=== PATIENT | female | born 1950 | race Caucasian/White ===

== ENCOUNTER 2020-07-02 10:17 | Outpatient (CLI) | payer MEDICARE, SELFPAY ==
--- NOTE | ~2020-07-02 | XR_ITS ---
XR lumbar spine 6V w bending DATE: 07/02/2020 10:46 INDICATION: Low back pain. No injury. TECHNIQUE: Flexion and extension and neutral lateral views. AP, bilateral oblique and coned lateral l umbosacral views COMPARISON: None FINDINGS: Minimal levoscoliosis of the thoracolumbar spine. Diffuse idiopathic skeletal hyperostosis of the thoracolumbar spine. No spondylolysis is evident. There is grade 1 anterolisthesis at L3-4 and L4-5 secondary to degenerat kyler change at the apophyseal joints. Moderately severe degenerative disease at L1-2, L2-3, L3-4 and severe degenerative disc disease at L5 -S1; associated mild retrolisthesis at L2-3. Moderate degenerative disc disease at L4-5. No instability is evident on flexion or extension. The sacroiliac joints are unremarkable. IMPRESSION: Diffuse idiopathic skeletal hyperostosis of the thoracolumbar spine Extensive multilevel degenerative disc disease of the lumbar spine, with associated mild retrolisthes is at L2-3 Degenerative change at the apophyseal joints with associated grade 1 anterolisthesis at L3-4 and L4-5 Reviewed, dictated and finalized at location B. IMPRESSION: Diffuse idiopathic skeletal hyperostosis of the thoracolumbar spine Extensive multilevel degenerative disc disease of the lumbar spine, with associ ated mild retrolisthesis at L2-3 Degenerative change at the apophyseal joints with associated grade 1 anterolist hesis at L3-4 and L4-5
--- NOTE | ~2020-07-02 | XR_ITS ---
XR chest 2V DATE: 07/02/2020 10:46 INDICATION: Shortness of breath TECHNIQUE: PA and lateral views COMPARISON: None FINDINGS: Cardiac megaly. No hilar or mediastinal enlargement. No pulmonary infiltrate or consolidation, pleural effusion or pulmonary vascular congestion or pneumo thorax. No hilar or mediastinal enlargement. Included skeletal structures are unremarkable other than degenerative changes of the thoracic and lum bar spine. IMPRESSION: Cardiomegaly; no active pulmonary disease Reviewed, dictated and finalized at location B.
== END 2020-07-02 10:18 | disposition home or self-care (01) ==
PROVIDERS: PCP Internal Medicine; Visit Provider Physician Assistant
DX: M54.30 Sciatica, unspecified side (principal); R06.02 Shortness of breath; M51.36 Other intervertebral disc degeneration, lumbar region
CPT/HCPCS: 71046; 72114

== ENCOUNTER 2021-09-03 12:24 | Emergency (ER) | payer MEDICARE, SELFPAY ==
[2021-09-03 12:33] VITALS: BP 184/104; PULSE 72; RESP 18; O2SAT 98
--- NOTE | 2021-09-03 14:13 | PC.NURSE ---
pt refuses to give urine sample at this time. does not want to stay for lab results. son at the bedside at this time. ERP aware.
[2021-09-03 14:23] VITALS: RESP 20
[2021-09-03 14:24] LABS: Basophils Absolute Auto 0.1 K/mm3 (0.0-0.1); Basophils Percent Auto 0.4 % (0.2-1.2); Eosinophils Absolute Auto 0.3 K/mm3 (0-0.3); Hematocrit 44.3 % (37.0-47.0); Hemoglobin 15.5 g/dL (12.0-15.0); Immature Granulocyte Absolute 0.15 K/mm3 (0.00-0.031); Lymphocytes Absolute Auto 1.11 K/mm3 (0.9-3.2); Lymphocytes Percent Auto 7.7 % (18.3-44.2); Mean Corpuscular Hemoglobin 29.9 pg (26-34); Mean Corpuscular Volume 85.5 fl (80-100); Mean Platelet Volume 9.6 fl (7.4-10.4); Monocytes Absolute Auto 0.8 K/mm3 (0.1-0.6); Monocytes Percent Auto 5.6 % (2.6-8.5); Neutrophils Percent Auto 83.3 % (45.5-73.1); Platelet Count Result 316 k/mm3 (150-375); Red Blood Count 5.18 M/mm3 (4.2-5.4); Red Cell Distribution Width 13.4 % (11.5-14.5); White Blood Count 14.5 K/mm3 (4.5-10.0)
[2021-09-03 14:33] LABS: Alanine Aminotransferase 17 U/L (4-35); Albumin Level 4.5 g/dL (3.5-5.1); Alkaline Phosphatase 106 U/L (38-126); Anion Gap 11 mmol/L (8-16); Aspartate Amino Transferase 22 U/L (14-36); Bilirubin,Total 1.2 mg/dL (0.2-1.3); Blood Urea Nitrogen 17 mg/dL (7-17); Calcium 9.1 mg/dL (8.4-10.2); Carbon Dioxide 30 mmol/L (22-30); Chloride 85 mmol/L (98-107); Estimated CRCL calculation 77 ml/min; Estimated Glomerular Filt Rate > 60; Glucose 287 mg/dL (65-110); Potassium 3.3 mmol/L (3.4-5.0); Sodium 126 mmol/L (137-145)
--- NOTE | 2021-09-03 14:39 | ED.GENADULT ---
HPI - General Adult General Chief complaint: Recheck/Abnormal Lab/Rx Stated complaint: HTN Time Seen by Provider: 09/03/21 12:45 Source: patient Mode of arrival: EMS Limitations: no limitations History of Present Illness HPI narrative: 71-year-old was brought in from home by EMS with complaints of possible anxiety attack. Patient is a known history of hypertension, diabetes. She states that she is feeling fine and wants to go home and does not want to be examined. She would like to sign out AMA. She declined any examination. Family is at bedside Related Data Allergies Allergy/AdvReac Type Severity Reaction Status Date / Time Penicillins Allergy Mild rash Verified 04/06/21 13:21 Review of Systems Review of Systems: Patient declined to answer questions and would not like me to examine him. [facility] Family History Family History Mother Hypertension Family history of malignant neoplasm, Onset Age: 87 Patient's mother is Father Family history of malignant neoplasm, Onset Age: 92 Patient's father is Other Diabetes mellitus Family history of allergic disorder Social History Social History Smoking status: Never smoker Second hand tobacco smoke exposure: No Alcohol intake: never Substance use: never Exam Narrative: Unable to perform any physical exam as patient would not let me examine her. Course Course Emergency Course: Inform patient and family about her behavior and attitude at this time patient declined examination. Family said that she has always been like that I cannot help it. Vital Signs Vital signs: Vital Signs Pulse Rate 72 09/03/21 12:33 Respiratory Rate 18 09/03/21 12:33 Blood Pressure 184/104 H 09/03/21 12:33 Pulse Oximetry 98 09/03/21 12:33 Pulse Rate 72 09/03/21 12:33 Respiratory Rate 18 09/03/21 12:33 Blood Pressure 184/104 H 09/03/21 12:33 Pulse Oximetry 98 09/03/21 12:33 Medical Decision Making Vital Signs Vital Signs: Vital Signs Pulse Rate 72 09/03/21 12:33 Respiratory Rate 18 09/03/21 12:33 Blood Pressure 184/104 H 09/03/21 12:33 Pulse Oximetry 98 09/03/21 12:33 Pulse Rate 72 09/03/21 12:33 Respiratory Rate 18 09/03/21 12:33 Blood Pressure 184/104 H 09/03/21 12:33 Pulse Oximetry 98 09/03/21 12:33 Lab Data Result diagrams: 09/03/21 14:10 09/03/21 14:10 Labs: Lab Results 09/03/21 09/03/21 Range/Units 14:10 14:10 WBC 14.5 H (4.5-10.0) K/mm3 RBC 5.18 (4.2-5.4) M/mm3 Hgb 15.5 H (12.0-15.0) g/dL Hct 44.3 (37.0-47.0) % MCV 85.5 (80-100) fl MCH 29.9 (26-34) pg MCHC 35.0 (32-36) g/dl RDW 13.4 (11.5-14.5) % Plt Count 316 (150-375) k/mm3 MPV 9.6 (7.4-10.4) fl Immature Gran % (Auto) 1.0 H (0-0.5) % Neut % (Auto) 83.3 H (45.5-73.1) % Lymph % (Auto) 7.7 L (18.3-44.2) % Sumner % (Auto) 5.6 (2.6-8.5) % Eos % (Auto) 2.0 (0-4.4) % Baso % (Auto) 0.4 (0.2-1.2) % Lymph # (Auto) 1.11 (0.9-3.2) K/mm3 Sumner # (Auto) 0.8 H (0.1-0.6) K/mm3 Eos # (Auto) 0.3 (0-0.3) K/mm3 Baso # (Auto) 0.1 (0.0-0.1) K/mm3 Abs Immat Gran (auto) 0.15 H (0.00-0.031) K/mm3 Absolute Neuts (auto) 12.0 H (1.3-6.7) K/mm3 Absolute Nucleated RBC 0.0 (0.0-0.012) K/mm3 Nucleated RBC % 0.0 (0.0-0.2) % Sodium 126 L (137-145) mmol/L Potassium 3.3 L (3.4-5.0) mmol/L Chloride 85 L (98-107) mmol/L Carbon Dioxide 30 (22-30) mmol/L Anion Gap 11 (8-16) mmol/L BUN 17 (7-17) mg/dL Creatinine 0.60 L (0.7-1.0) mg/dL Estim Creat Clear Calc 77 ml/min Estimated GFR > 60 (59 - ) Glucose 287 H (65-110) mg/dL Calcium 9.1 (8.4-10.2) mg/dL Total Bilirubin 1.2 (0.2-1.3) mg/dL AST 22 (14-36) U/L ALT 17 (4-35) U/L Alkaline Phosphatase 106 (38
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
--- NOTE | 2021-09-03 15:27 | PC.NURSE ---
denies any issues at this time. Pt admits to being non-compliant with insulin and BG checks. after RN mike blood, pt states that she had been eating multiple glucose tablets she had in her purse, because I was hungry
--- NOTE | 2021-09-03 15:29 | PC.NURSE ---
IV hadd been placed by EMS PATIENT ACCOUNT REPRESENTATIVE, unknown location, but IV catheter was on the bedside table when RN went to bedside.
--- NOTE | 2021-09-03 15:42 | PC.NURSE ---
RN called Adam, son, with critical lab results. Family verified that he is aware of critical results, and knows that pt need medical care. Pt to have office visit with PCP next week, but known to be non-compliant with follow up care and PCP visits.
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
== END 2021-09-03 14:25 | disposition left against medical advice (07) ==
PROVIDERS: Emergency Provider Family Medicine; PCP Internal Medicine
DX: F41.9 Anxiety disorder, unspecified (principal); I10 Essential (primary) hypertension; E11.9 Type 2 diabetes mellitus without complications
CPT/HCPCS: 36415; 80053; 85025; 99283

== ENCOUNTER 2021-09-04 16:37 | Inpatient (IN) | payer MEDICARE, SELFPAY ==
--- NOTE | ~2021-09-04 | CT_ITS ---
EXAMINATION: CT brain wo con DATE: 09/04/2021 18:40 INDICATION: Hyponatremia. TECHNIQUE: Computed tomography (CT) of the head was performed without intravenous contrast. The mA wa s adjusted according to patient size. Iterative reconstruction technique was employed. The dose-lengt h product was 605.33 mGy-cm. COMPARISON: None FINDINGS: There is no intracranial hemorrhage, acute infarction, or abnormal intracranial mass lesion . There is an old infarct involving the right basal ganglia and right frontal lobe white matter. Ther e are scattered areas of low attenuation in the cerebral white matter, which is within normal limits for the patient's age. The ventricles are normal in size. The paranasal sinuses are clear. The mastoi d air cells are normal. The orbits are normal. IMPRESSION: 1. Old infarct involving the right basal ganglia and right frontal lobe white matter. Reviewed, dictated and finalized at location A. IMPRESSION: 1. Old infarct involving the right basal ganglia and right frontal lobe white m atter.
--- NOTE | ~2021-09-04 | XR_ITS ---
EXAMINATION: XR chest 1V portable DATE: 09/04/2021 17:15 INDICATION: Cough. TECHNIQUE: A single frontal view of the chest was obtained. COMPARISON: Chest 2 views 07/02/2020 FINDINGS: The patient is rotated to her left. There is no pneumonia, pleural effusion, or pneumothora x. Cardiomediastinal is noted. IMPRESSION: 1. Cardiomegaly. Reviewed, dictated and finalized at location A. IMPRESSION: 1. Cardiomegaly.
[2021-09-04 17:34] LABS: Basophils Absolute Auto 0.1 K/mm3 (0.0-0.1); Basophils Percent Auto 0.4 % (0.2-1.2); Eosinophils Absolute Auto 0.2 K/mm3 (0-0.3); Eosinophils Percent Auto 1.5 % (0-4.4); Hematocrit 41.9 % (37.0-47.0); Immature Granulocyte Absolute 0.23 K/mm3 (0.00-0.031); Immature Granulocyte Percent A 1.4 % (0-0.5); Lymphocytes Absolute Auto 1.44 K/mm3 (0.9-3.2); Lymphocytes Percent Auto 8.7 % (18.3-44.2); Mean Corpuscular HGB Conc 35.8 g/dl (32-36); Mean Corpuscular Hemoglobin 29.9 pg (26-34); Mean Corpuscular Volume 83.5 fl (80-100); Mean Platelet Volume 9.4 fl (7.4-10.4); Monocytes Percent Auto 5.9 % (2.6-8.5); Neutrophils Absolute Auto 13.5 K/mm3 (1.3-6.7); Neutrophils Percent Auto 82.1 % (45.5-73.1); Platelet Count Result 340 k/mm3 (150-375); Red Blood Count 5.02 M/mm3 (4.2-5.4); Red Cell Distribution Width 13.3 % (11.5-14.5); White Blood Count 16.5 K/mm3 (4.5-10.0)
[2021-09-04 17:43] VITALS: BP 178/108; PULSE 68; RESP 18; O2SAT 97
[2021-09-04 17:47] LABS: INR 1.1; Prothrombin Time 14.4 Seconds (11.1-14.7)
[2021-09-04 17:50] LABS: Alanine Aminotransferase 17 U/L (4-35); Albumin Level 4.4 g/dL (3.5-5.1); Alkaline Phosphatase 98 U/L (38-126); Anion Gap 11 mmol/L (8-16); Aspartate Amino Transferase 24 U/L (14-36); Bilirubin,Total 1.4 mg/dL (0.2-1.3); Blood Urea Nitrogen 20 mg/dL (7-17); Calcium 9.1 mg/dL (8.4-10.2); Carbon Dioxide 29 mmol/L (22-30); Chloride 82 mmol/L (98-107); Estimated CRCL calculation 79 ml/min; Estimated Glomerular Filt Rate > 60; Glucose 274 mg/dL (65-110); Magnesium 1.4 mg/dL (1.6-2.3); Potassium 3.2 mmol/L (3.4-5.0); Sodium 122 mmol/L (137-145)
[2021-09-04 18:01] LABS: Troponin I < 0.012 ng/mL (0.000-0.034)
--- NOTE | 2021-09-04 18:45 | ED.RECABL ---
HPI - Recheck/Abnormal Lab/Rx General Chief Complaint: Recheck/Abnormal Lab/Rx Stated Complaint: ABN LABS Time Seen by Provider: 09/04/21 16:39 Source: EMS and other (group social worker) Mode of arrival: EMS Limitations: altered mental status and other (uncooperative) History of Present Illness HPI narrative: 71-year-old female history of hypertension and insulin-dependent diabetes brought in by Adult Protective Services per EMS for abnormal labs in the ED yesterday. Patient left AGAINST MEDICAL ADVICE yesterday with abnormal labs. Patient with no complaints. Patient agrees to stay if needed. No fever, unkempt poor historian and denies current complaints. Initial visit (ago): day(s) (1) Initial visit for: other (anxiety) Returns today for: called because of abnormal lab/test Symptoms since prior visit: no new symptoms Context: called for abnormal lab result Associated symptoms: none Related Data Allergies Allergy/AdvReac Type Severity Reaction Status Date / Time Penicillins Allergy Mild rash Verified 04/06/21 13:21 Review of Systems Review of Systems: CONSTITUTIONAL: no fever, no weight loss, no confusion, hungry EYES: no vision changes, no eye pain ENT: no rhinorrhea, no sore throat, no difficulty swallowing CARDIOVASCULAR: no chest pain, no leg edema, no palpitations RESPIRATORY: no cough, no shortness of breath, no hemoptysis GASTROINTESTINAL: no abdominal pain, no nausea, no vomiting, no diarrhea GENITOURINARY: no flank pain, no dysuria, no hematuria SKIN: no rash, no jaundice MUSCULOSKELETAL: no back pain, no trauma. NEUROLOGIC: No headache, no dizziness, no focal weakness PSYCHIATRIC: No hallucinations, no suicidal ideation [facility] Family History Family History Mother Hypertension Family history of malignant neoplasm, Onset Age: 87 Patient's mother is Father Family history of malignant neoplasm, Onset Age: 92 Patient's father is Other Diabetes mellitus Family history of allergic disorder Social History Social History Smoking status: Never smoker Second hand tobacco smoke exposure: No Alcohol intake: never Substance use: never Exam Narrative: General: alert, afebrile, unkempt Head: normocephalic, atraumatic Eyes: EOMI bilaterally, anicteric, no injection ENT: dry mucous membranes, oropharynx patent, no rhinorrhea Neck: supple, trachea midline Chest: equal chest rise bilaterally, no chest wall trauma noted CV: regular rate, no EZRA B, calf size equal bilaterally Abd: soft, non-distended, non-tender, no rebound, no gaurding, negative Villasenor's : no CVA tenderness B, bladder non-distended Back: no lumbar bony tenderness. paraspinal muscles without spasm EXT: no deformity noted, moving all extremities equally Skin: warm, dry, no pallor Neuro: alert, oriented x 3; CN 2-12 grossly intact, no dysarthria Psych: affect appropriate, though content normal Course Course Emergency Course: Patient brought in by protective services for abnormal labs yesterday after leaving AMA. Patient agrees to admission at this time. Labs show hyponatremia hypomagnesemia she also has elevated WBCs with with clear chest x-ray. UA pending we will treat UTI that she has. CT brain without acute process. Vital Signs Vital signs: Vital Signs Pulse Rate 68 09/04/21 17:43 Respiratory Rate 18 09/04/21 17:43 Blood Pressure 178/108 H 09/04/21 17:43 Pulse Oximetry 97 09/04/21 17:43 Pulse Rate 68 09/04/21 17:43 Respiratory Rate 18 09/04/21 17:43 Blood Pressure 178/108 H 09/04/21 17:43 Pulse Oximetry 97 09/04/21 17:43 MDM - Recheck/Abnormal Lab/Rx Differential Diagnosis Differential diagnosis: Likely other (Electrolyte disorder, altered mental status, UTI, pneumonia, acute renal failure, hyperglycemia) Medical Records Attestation: I reviewed the pa
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
--- NOTE | 2021-09-04 18:54 | ECG_ITS ---
Measurements Intervals [place] Rate: 77 P: 46 MN: 171 QRS: -23 QRSD: 102 T: -4 QT: 433 QTc: 491 Interpretive Statements SINUS RHYTHM ATRIAL PREMATURE COMPLEX BORDERLINE R WAVE PROGRESSION, ANTERIOR LEADS BORDERLINE T WAVE ABNORMALITY- INFERIOR LEADS BASELINE ARTIFACT- I, II, AVR, AVL, AVF BORDERLINE ECG Electronically Signed On 09-04-2021 20:06:36 CDT by Franck Quesada D.O.
[2021-09-04] MEDS: SODIUM CHLORIDE 0.9% IV 1,000 ML 999 ML IV CONT (19:05)
--- NOTE | 2021-09-04 19:12 | PC.NURSE ---
straight cathed for urine, approx 200ml output. urine sent to lab. pt cleaned up and dry depends
[2021-09-04 19:26] LABS: Add Urine Microscopic? YES; Appearance Urine Clear (Clear); Bilirubin Urine Negative (Negative); Blood Urine Negative (Negative); Color Urine Yellow (Yellow); Glucose Urine UA 3+ mg/dL (Negative); Ketones Urine 1+ mg/dL (Negative); Leukocyte Esterase Ur Negative LEU/UL (Negative); Mucus Urine Rare /lpf; Nitrate Urine Negative (Negative); Protein Urine 2+ mg/dL (Negative); RBC Urine 0-2 /hpf (0-2); Urobilinogen Urine Negative mg/dL (<2.0); WBC Urine 0-3 /hpf
--- NOTE | 2021-09-04 19:30 | PC.NURSE ---
verbal report given to Rosario WELFARE PROJECT MANAGER nurse. notified that pt will need capacity assessment completed by and that [place] dept of aging has been involved.
[2021-09-04 19:43] VITALS: BP 157/100; PULSE 75; RESP 20; TEMP 36.6; O2SAT 98
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
[2021-09-04 20:18] VITALS: BP 126/82; PULSE 78; RESP 15
--- NOTE | 2021-09-04 20:24 | PC.NURSE ---
Pt's daughter Fe here but spoke with charge nurse. Will not be taking pt home. Left number for her brother: Adam Ricci [phone].
[2021-09-04 20:45] VITALS: BP 172/110; PULSE 76; RESP 10; O2SAT 97
[2021-09-04 20:46] VITALS: BP 172/110; PULSE 94; RESP 31; O2SAT 93
--- NOTE | 2021-09-04 20:54 | PC.NURSE ---
Pt to [id number] in [facility]. reluctant to be admitted. this RN and viscose cellar charge hand zoltan in ED room to speak with pt. Education provided. Pt informed that her daughter has already left the hospital and will NOT be taking her home. Pt denies using walker or cane at home. Agreed to go to inpatient room and more comfortable bed, with reluctance.
[2021-09-04 21:35] VITALS: BMI 41.8
[2021-09-04 22:00] VITALS: BP 168/82; PULSE 75; RESP 20; TEMP 36.2; O2SAT 98
[2021-09-04] MEDS: SODIUM CHLORIDE 0.9% IV 1,000 ML 125 ML IV CONT (22:05)
[2021-09-04 22:16] LABS: Glucose Point of Care 300 mg/dl (65-105)
[2021-09-04] MEDS: LOPERAMIDE HCL 2 MG CAPSULE 4 MG PO (22:42)
[2021-09-04] MEDS: traZODone HCL 50 MG TABLET 100 MG PO (22:43)
[2021-09-05] VITALS (10 sets, daily range): BP systolic 134–161; BP diastolic 54–83; PULSE 62–83; RESP 16–18; TEMP 36.6–36.8; O2SAT 93–97
--- NOTE | 2021-09-05 00:12 | PM.IMHP ---
H&P: HPI History of Present Illness Date/Time: 09/04/21 4413 this is a 71-year-old female patient with a history of hypertension and insulin-dependent diabetes. The patient was brought into adult protective services per EMS for abnormal labs in the ED yesterday. The patient was seen here at [facility] yesterday for possible anxiety attack. The patient stated she was feeling fine and she wanted to go home she did want to be examined and she signed out against medical advice yesterday. Her family was at the bedside yesterday. Yesterday her white count was noted to be 14.5 and today it is 16.5. Yesterday her sodium was 126 and today is 122. Patient's potassium 3.3 yesterday at 3.2 today. Her blood sugar was 287 yesterday 274 today and then 300. Magnesium is 1.4 today. Patient was empirically started on Rocephin for possibility of urinary tract infection. The patient is very unkempt. She was started on IV fluids. The patient stated that she has chronic diarrhea due to her metformin. We have no previous labs to compare her sodium. The patient is being admitted to inpatient services on the date of service of 09/04/2021 Chief Complaint: Abnormal lab Review of Systems Review of Systems: All systems reviewed & are unremarkable except as noted in HPI and below Constitutional: Constitutional: Reports as per HPI and Reports no additional constitutional complaints Eyes: Eyes: Reports as per HPI and Reports no additional eye complaints ENT: Reports system reviewed and no additional complaints, except as documented and Reports Normal hearing present Cardiovascular: Cardiovascular: Reports no additional cardiovascular complaints Respiratory: Respiratory: Reports no additional respiratory complaints and Reports no additional respiratory complaints Gastrointestinal: Gastrointestinal: Reports as per HPI and Reports no additional gastrointestinal complaints Musculoskeletal: Musculoskeletal: Reports no additional musculoskeletal complaints Integumentary/Breasts: Skin/Breast: Reports system reviewed and no additional complaints, except as docu and Reports as per HPI Neurologic: Reports system reviewed and no additional complaints, except as documented, Reports as per HPI and Reports Normal hearing present Psychiatric: Psychiatric: Reports no additional psychiatric complaints and Reports as per HPI Endocrine: Endocrine: Reports no additional endocrine complaints Hematologic/Lymphatic: Hematologic/Lymphatic: Reports no additional hematologic/lymphatic complaints Allergic/Immunologic: Allergic/Immunologic: Reports no additional allergic/immunologic complaints [facility] Past Medical History Medical History (Updated 09/05/21 @ 00:23 by Mago Porras NP) History of CVA (cerebrovascular accident) Hyperlipidemia Hypertension Type 2 diabetes mellitus Surgical History Surgical History (Updated 09/05/21 @ 00:23 by Mago Porras NP) History of section, classical Family History Family History Mother Hypertension Family history of malignant neoplasm, Onset Age: 87 Patient's mother is Father Family history of malignant neoplasm, Onset Age: 92 Patient's father is Other Diabetes mellitus Family history of allergic disorder Social History Social History (Updated 09/05/21 @ 00:24 by Mago Porras NP) Social History: The patient has 6 children and she is . She has a 15-year-old granddaughter living with her. Patient stated that she is a lifelong nonsmoker. She does not use any alcohol marijuana or illicit drugs. Patient desires to be a full code but does not have a durable power admitted attorneys for healthcare. 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 Smoking status: Never smoker Second hand tobacco smoke exposure: No Alcohol intake: never Substance use: never Substance use type: does not use Spiritua
[2021-09-05] MEDS: MAGNESIUM SULF 2 GM/WATER 50ML 2 GM/50 ML BAG IVPB (00:42)
[2021-09-05] MEDS: POTASSIUM CHLORIDE 20 MEQ TABLET 40 MEQ PO (00:42)
[2021-09-05] MEDS: metroNIDAZOLE 500 MG/ISO 100ML 500 MG/100 ML BAG 100 MG IVPB ×4 (00:59→20:00)
[2021-09-05 05:42] LABS: Basophils Absolute Auto 0.1 K/mm3 (0.0-0.1); Basophils Percent Auto 0.4 % (0.2-1.2); Eosinophils Absolute Auto 0.3 K/mm3 (0-0.3); Eosinophils Percent Auto 1.9 % (0-4.4); Hematocrit 38.8 % (37.0-47.0); Hemoglobin 13.9 g/dL (12.0-15.0); Immature Granulocyte Absolute 0.18 K/mm3 (0.00-0.031); Immature Granulocyte Percent A 1.3 % (0-0.5); Lymphocytes Absolute Auto 1.68 K/mm3 (0.9-3.2); Lymphocytes Percent Auto 11.7 % (18.3-44.2); Mean Corpuscular HGB Conc 35.8 g/dl (32-36); Mean Corpuscular Hemoglobin 29.4 pg (26-34); Mean Platelet Volume 9.9 fl (7.4-10.4); Monocytes Absolute Auto 1.1 K/mm3 (0.1-0.6); Monocytes Percent Auto 7.6 % (2.6-8.5); Neutrophils Absolute Auto 11.1 K/mm3 (1.3-6.7); Neutrophils Percent Auto 77.1 % (45.5-73.1); Platelet Count Result 331 k/mm3 (150-375); Red Blood Count 4.73 M/mm3 (4.2-5.4); White Blood Count 14.4 K/mm3 (4.5-10.0)
[2021-09-05] MEDS: SODIUM CHLORIDE 0.9% IV 1,000 ML 125 ML IV CONT ×3 (05:47→20:01)
[2021-09-05 05:59] LABS: Alanine Aminotransferase 14 U/L (4-35); Alkaline Phosphatase 89 U/L (38-126); Anion Gap 9 mmol/L (8-16); Aspartate Amino Transferase 23 U/L (14-36); Bilirubin,Total 1.2 mg/dL (0.2-1.3); Blood Urea Nitrogen 14 mg/dL (7-17); Calcium 8.5 mg/dL (8.4-10.2); Carbon Dioxide 27 mmol/L (22-30); Chloride 88 mmol/L (98-107); Cholesterol 208 mg/dL (0-200); Estimated CRCL calculation 93 ml/min; Estimated Glomerular Filt Rate > 60; Glucose 219 mg/dL (65-110); HDL Direct 33 mg/dL; Phosphorus 3.5 mg/dL (2.5-4.5); Potassium 3.2 mmol/L (3.4-5.0); Sodium 124 mmol/L (137-145); Triglycerides 131 mg/dL (<150)
[2021-09-05 06:03] LABS: LDL Cholesterol Direct 146 mg/dL
[2021-09-05 06:12] LABS: Hemoglobin A1C 8.1 % (<5.7)
[2021-09-05] MEDS: traMADol HCL (*CRX) 50 MG TABLET PO ×2 (06:38→20:03)
[2021-09-05] MEDS: ENOXAPARIN 40 MG/0.4 ML SYRINGE SUB-Q (08:20)
[2021-09-05] MEDS: GABAPENTIN 300 MG CAPSULE 600 MG PO ×2 (08:21→16:59)
[2021-09-05] MEDS: amLODIPine BESYLATE 5 MG TABLET PO (08:21)
[2021-09-05] MEDS: atenoloL 50 MG TABLET 100 MG PO (08:21)
[2021-09-05] MEDS: INSULIN GLARGINE (*BKC) 100 UNITS/ML 25 UNITS SUB-Q (08:23)
[2021-09-05] MEDS: INSULIN ASPART (*BKC) 100 UNITS/ML SUB-Q ×2 (08:23→16:59)
[2021-09-05 08:25] LABS: Glucose Point of Care 246 mg/dl (65-105)
--- NOTE | 2021-09-05 09:44 | PM.IMPN ---
Progress Note: A&P Additional Plan START OF DOCTOR RENALDO?S PROGRESS NOTE Subjective: The patient endorses no complaints at this time. She denies fever, rigors, nausea, vomiting, cough, wheeze, abdominal pain, chest pain, dyspnea, lightheadedness, dizziness, chest pain, palpitations, since his rapid heartbeat, sensation irregular heartbeat, dyspnea, or any other constitutional complaints. I have explained to the patient her current medical condition plan of care and I have answered all her questions Objective: General: -Alert -No acute distress -No dyspnea -No tachypnea -obese Heart: -Regular rate -Regular rhythm -No murmurs -No gallops -No rubs Lungs: -No wheeze -No rhonchi -No rales Abdomen: -Normal bowel sounds in all four quadrants -No rebound -No guarding -No tenderness Extremities: -2/4 pulse in all four extremities -No clubbing -No cyanosis -No edema Additional Details / Additional Findings / Exceptions / Miscellaneous: Pertinent Laboratory Results / Pertinent Radiology Results / Pertinent Diagnostic Results / Pertinent Vital Signs: Blood pressure 161/83, white blood count 14.4, he sodium 124, potassium 3.2 Assessment / Plan: Hyponatremia. Possibly due to chronic diarrhea. Monitor sodium levels q.4 hours. Check serum osmolality, cortisol, ADH level, free T4 level. IV normal saline 125 mL/hour Hypertension. Norvasc 10 mg p.o. daily plus patella 100 mg p.o. daily plus hydralazine 50 mg p.o. t.i.d. Diabetes. Will check fingerstick glucose q.a.c. and HS and provide insulin sliding scale plus insulin goal glargine 25 units subcutaneously daily and 15 units subcutaneously q.h.s. History of CVA Hyperlipidemia Neuropathy. Gabapentin 600 mg p.o. b.i.d. Chronic diarrhea. Stool studies pending. Flagyl 500 mg IV q.6 hours Hypomagnesemia. Resolved Hypokalemia. Will monitor potassium levels intermittently supplements necessary Degenerative disc disease Query depression. Trazodone 100 mg p.o. q.h.s. DVT prophylaxis. Lovenox 40 mg subcutaneously daily Disposition: Anticipate discharge in 24 hours if sodium levels can be corrected END OF DOCTOR RENALDO?S PROGRESS NOTE Subjective Date/time seen: 09/05/21 09:44 Objective Data Vital Signs Vital Signs: Vital Signs - 24 hr 09/04/21 17:43 09/04/21 19:43 09/04/21 20:18 Temperature 97.9 F Pulse Rate 68 75 78 Respiratory Rate 18 20 15 Blood Pressure 178/108 H 157/100 H 126/82 Pulse Oximetry 97 98 09/04/21 20:45 09/04/21 20:46 09/04/21 22:00 Temperature 97.1 F L Pulse Rate 76 94 75 Respiratory Rate 10 L 31 H 20 Blood Pressure 172/110 H 172/110 H 168/82 H Pulse Oximetry 97 93 98 09/05/21 00:00 09/05/21 04:00 09/05/21 06:00 Temperature 97.9 F Pulse Rate 83 62 73 Respiratory Rate 18 Blood Pressure 161/83 H Pulse Oximetry 97 09/05/21 08:00 09/05/21 08:21 Temperature Pulse Rate 77 71 Respiratory Rate Blood Pressure Pulse Oximetry Intake/Output Intake/Output: Intake & Output 09/02/21 09/03/21 09/04/21 09/05/21 23:59 23:59 23:59 23:59 Intake Total 1050 1700 Output Total 600 Balance 1050 1100 Meds/Results Medications: Active Medications Generic Name Dose Route Start Last Admin Trade Name Freq PRN Reason Stop Dose Admin Amlodipine Besylate 5 mg 09/05/21 09:00 09/05/21 08:21 Amlodipine Besylate 5 Mg Tablet PO 5 mg DAILY MIKHAIL Administration Atenolol 100 mg 09/05/21 09:00 09/05/21 08:21 Atenolol 50 Mg Tablet PO 100 mg DAILY MIKHAIL Administration Dextrose 12.5 gm 09/04/21 22:51 Dextrose 50% 25 Gm/50 Ml Syringe IV PUSH PRN PRN Hypoglycemia Protocol Enoxaparin Sodium 40 mg 09/05/21 09:00 09/05/21 08:20 Enoxaparin 40 Mg/0.4 Ml Syringe SUB-Q 40 mg DAILY MIKHAIL Administration Ergocalciferol 50,000 unit 09/07/21 09:00 Ergocalciferol 50,000 Unit Capsule PO WEEKLY [facility] Gabapentin
[2021-09-05 10:37] LABS: Sodium Urine Random 51 meq/L
[2021-09-05 10:39] LABS: Sodium 126 mmol/L (137-145)
[2021-09-05 11:17] LABS: Free T4 Free Thyroxine 2.36 ng/mL (0.78-2.19)
--- NOTE | 2021-09-05 11:28 | PC.NURSE ---
when I entered to pass morning meds, pt asked when she was going to be free to leave. I asked her what was wrong. She said she wanted to leave and not be trapped in here. I told her we were trying to help her and she was here to get treatment. She just kept saying that she wanted to leave. I reminded pt that this was a hospital not a fpc and that no one is forced to stay here but in order to get treatment, take meds, et al. she needed to agree and be willing. She said she was just sad and would consent to treatment and taking meds.
--- NOTE | 2021-09-05 11:31 | PC.NURSE ---
Shortly after passing morning meds, I received a phone call from pt's daughter asking me to help persuade her mother to stay. I explained to pt's daughter that I had this conversation with pt earlier and attempted to persuade her to consent to testing, treatment, meds, etc. and had thought that pt was going to stay and consent. Pt's daughter wanted me to force her to stay to which I explained to pt's daughter that I can't force someone to stay or force treatment on a pt as it would be considered a criminal act. As I was talking with pt's daughter, pt called the nurse's station and said that she had called a taxi and was leaving. I immediately shared this information with pt's daughter who in turn expressed her frustration and exasperation with pt's behavior.
--- NOTE | 2021-09-05 11:43 | PC.NURSE ---
While I was speaking with pt's daughter on the phone, I received a call at the nurse's station from pt who stated that she had called a tax and was leaving. I shared this information with pt's daughter, and then went to pt's room. I asked pt what happened and why. Pt stated, it ain't you, there just isn't anything else you all can do for me. I'm leaving. I reminded pt that her daughter wanted her to stay and get treatment. Pt stated again, I don't want to be here. I called a taxi. I'm leaving. I removed pt's IV, had pt sign the AMA form, made sure she had all of her personal belongings, and explained that once she was dressed she was free to leave.
--- NOTE | 2021-09-05 11:48 | PC.NURSE ---
approximately 15 minutes after pt signed the AMA, she called the nurse's station. The charge nurse asked pt if the IV had been removed, paused, and then stated that pt was free to leave. The charge nurse went to pt's room a brief time later and reemerged stating that pt had changed her mind and now wanted to stay. I was then directed to place an IV in pt and restart her meds. Pt insisted on keeping all of her belongings (a large bag of clothes and a very large bulging purse) in the bed with her which was preventing her from actually being fully in the bed. I explained to pt that the belongings would need to placed in the closet as she needed to be fully on the bed not hanging half way off as it was unsafe. Pt let the bag of clothes be put away but refused to let go of the bulging purse.
--- NOTE | 2021-09-05 11:53 | PC.NURSE ---
I assisted pt with using the toilet this morning (she is a standby assist). She urinated, stood up and attempted to exit the bathroom. I informed pt that she needed to wipe and wash her hands. She looked at me incredulously and stated, but all I did was pee. I replied, you need to wipe the urine off of yourself and wash your hands with soap to do otherwise is unsanitary and can lead to you getting an infection. Pt made several grunting noises but complied.
--- NOTE | 2021-09-05 11:57 | PC.NURSE ---
I went into pt's room approximately 90 minutes after pt decided not to go AMA. Pt still has her pants on, they are very wet, and she smells strongly of urine. I attempted to persuade pt to remove the wet pants and she refused. Pt's hair is extremely matted and has foreign objects that appear to be food remnants and/or trash embedded it in as well. I suggested that pt take a shower but was refused.
[2021-09-05 12:06] LABS: Glucose Point of Care 172 mg/dl (65-105)
[2021-09-05 15:25] LABS: Sodium 126 mmol/L (137-145)
--- NOTE | 2021-09-05 16:29 | PC.NURSE ---
copeptin lab placed after asking lab personnel how to enter [facility] anti diuretic hormone lab per MD request
[2021-09-05 16:39] LABS: Glucose Point of Care 212 mg/dl (65-105)
[2021-09-05] MEDS: POTASSIUM CHLORIDE 20 MEQ PACKET (FOR LIQUID) 40 MEQ PO ×2 (16:59→17:10)
[2021-09-05] MEDS: hydrALAZINE HCL 50 MG TABLET PO ×2 (16:59→17:10)
[2021-09-05] MEDS: INSULIN GLARGINE (*BKC) 100 UNITS/ML 15 UNITS SUB-Q (17:04)
[2021-09-05 17:32] LABS: Sodium 125 mmol/L (137-145)
[2021-09-05] MEDS: traZODone HCL 50 MG TABLET 100 MG PO (20:02)
[2021-09-05 20:20] LABS: Glucose Point of Care 135 mg/dl (65-105)
[2021-09-05 21:38] LABS: Sodium 130 mmol/L (137-145)
[2021-09-06] VITALS: PULSE 73
[2021-09-06] MEDS: metroNIDAZOLE 500 MG/ISO 100ML 500 MG/100 ML BAG 100 MG IVPB ×2 (00:03→06:01)
[2021-09-06 02:23] LABS: Sodium 131 mmol/L (137-145)
[2021-09-06 04:00] VITALS: PULSE 71
[2021-09-06 04:45] VITALS: BP 134/65; PULSE 60; RESP 16; TEMP 36.6; O2SAT 93
[2021-09-06 05:45] LABS: Basophils Absolute Auto 0.1 K/mm3 (0.0-0.1); Basophils Percent Auto 0.9 % (0.2-1.2); Eosinophils Absolute Auto 0.4 K/mm3 (0-0.3); Eosinophils Percent Auto 3.6 % (0-4.4); Hematocrit 36.3 % (37.0-47.0); Hemoglobin 12.5 g/dL (12.0-15.0); Immature Granulocyte Absolute 0.13 K/mm3 (0.00-0.031); Immature Granulocyte Percent A 1.3 % (0-0.5); Lymphocytes Percent Auto 19.5 % (18.3-44.2); Mean Corpuscular HGB Conc 34.4 g/dl (32-36); Mean Corpuscular Hemoglobin 29.8 pg (26-34); Mean Corpuscular Volume 86.4 fl (80-100); Monocytes Absolute Auto 1.1 K/mm3 (0.1-0.6); Neutrophils Absolute Auto 6.2 K/mm3 (1.3-6.7); Neutrophils Percent Auto 63.7 % (45.5-73.1); Platelet Count Result 270 k/mm3 (150-375); Red Cell Distribution Width 13.7 % (11.5-14.5); White Blood Count 9.8 K/mm3 (4.5-10.0)
[2021-09-06 05:54] LABS: Anion Gap 5 mmol/L (8-16); Blood Urea Nitrogen 10 mg/dL (7-17); Calcium 8.2 mg/dL (8.4-10.2); Carbon Dioxide 29 mmol/L (22-30); Chloride 99 mmol/L (98-107); Estimated CRCL calculation 80 ml/min; Estimated Glomerular Filt Rate > 60; Glucose 147 mg/dL (65-110); Potassium 3.2 mmol/L (3.4-5.0); Sodium 133 mmol/L (137-145)
[2021-09-06] MEDS: SODIUM CHLORIDE 0.9% IV 1,000 ML 125 ML IV CONT (05:55)
[2021-09-06 08:00] VITALS: PULSE 69
[2021-09-06 08:07] LABS: Glucose Point of Care 213 mg/dl (65-105)
[2021-09-06] MEDS: INSULIN ASPART (*BKC) 100 UNITS/ML SUB-Q (08:11)
[2021-09-06] MEDS: amLODIPine BESYLATE 5 MG TABLET 10 MG PO (08:12)
[2021-09-06] MEDS: hydrALAZINE HCL 50 MG TABLET PO (08:12)
[2021-09-06] MEDS: atenoloL 50 MG TABLET 100 MG PO (08:12)
[2021-09-06] MEDS: GABAPENTIN 300 MG CAPSULE 600 MG PO (08:13)
[2021-09-06] MEDS: ENOXAPARIN 40 MG/0.4 ML SYRINGE SUB-Q (08:13)
[2021-09-06] MEDS: INSULIN GLARGINE (*BKC) 100 UNITS/ML 25 UNITS SUB-Q (08:15)
--- NOTE | 2021-09-06 09:01 | PM.IMPN ---
Progress Note: A&P Additional Plan START OF DOCTOR RNEALDO?S PROGRESS NOTE Subjective: The patient inquires about being discharged. She endorses no complaints. She denies fever, rigors, nausea, vomiting, cough, wheeze, abdominal pain lb, chest pain, dyspnea, diarrhea, or any other constitutional complaints. I explained to the patient her current medical condition plan care and I have answered all her questions Objective: General: -Alert -No acute distress -No dyspnea -No tachypnea -obese Heart: -Regular rate -Regular rhythm -No murmurs -No gallops -No rubs Lungs: -No wheeze -No rhonchi -No rales Abdomen: -Normal bowel sounds in all four quadrants -No rebound -No guarding -No tenderness Extremities: -2/4 pulse in all four extremities -No clubbing -No cyanosis -No edema Additional Details / Additional Findings / Exceptions / Miscellaneous: Pertinent Laboratory Results / Pertinent Radiology Results / Pertinent Diagnostic Results / Pertinent Vital Signs: Vital signs stable. Sodium 133, potassium 3.2 Assessment / Plan: Hyponatremia. Possibly due to chronic diarrhea. Monitor sodium levels q.4 hours. Check serum osmolality, cortisol, ADH level, free T4 level. IV normal saline 125 mL/hour Hypertension. Norvasc 10 mg p.o. daily plus patella 100 mg p.o. daily plus hydralazine 50 mg p.o. t.i.d. Diabetes. Will check fingerstick glucose q.a.c. and HS and provide insulin sliding scale plus insulin goal glargine 25 units subcutaneously daily and 15 units subcutaneously q.h.s. History of CVA Hyperlipidemia Neuropathy. Gabapentin 600 mg p.o. b.i.d. Chronic diarrhea. Stool studies pending. Flagyl 500 mg IV q.6 hours Hypomagnesemia. Resolved Hypokalemia. Will monitor potassium levels intermittently supplements necessary Degenerative disc disease Query depression. Trazodone 100 mg p.o. q.h.s. DVT prophylaxis. Lovenox 40 mg subcutaneously daily Disposition: Patient medically stable for discharge on this day of September 06, 2021 END OF DOCTOR RENALDO?S PROGRESS NOTE Subjective Date/time seen: 09/06/21 09:01 Objective Data Vital Signs Vital Signs: Vital Signs - 24 hr 09/05/21 13:46 09/05/21 14:00 09/05/21 16:00 Temperature 98.3 F 98.3 F Pulse Rate 76 76 66 Respiratory Rate 18 18 Blood Pressure 134/54 L 134/54 L Pulse Oximetry 96 96 09/05/21 20:00 09/05/21 21:10 09/06/21 00:00 Temperature 97.8 F Pulse Rate 75 71 73 Respiratory Rate 16 Blood Pressure 151/67 H Pulse Oximetry 93 09/06/21 04:00 09/06/21 04:45 Temperature 97.8 F Pulse Rate 71 60 Respiratory Rate 16 Blood Pressure 134/65 Pulse Oximetry 93 Intake/Output Intake/Output: Intake & Output 09/03/21 09/04/21 09/05/21 09/06/21 23:59 23:59 23:59 23:59 Intake Total 1050 5040 1940 Output Total 1350 1400 Balance 1050 3690 540 Meds/Results Medications: Active Medications Generic Name Dose Route Start Last Admin Trade Name Freq PRN Reason Stop Dose Admin Amlodipine Besylate 10 mg 09/06/21 09:00 09/06/21 08:12 Amlodipine Besylate 5 Mg Tablet PO 10 mg DAILY MIKHAIL Administration Atenolol 100 mg 09/05/21 09:00 09/06/21 08:12 Atenolol 50 Mg Tablet PO 100 mg DAILY MIKHAIL Administration Dextrose 12.5 gm 09/04/21 22:51 Dextrose 50% 25 Gm/50 Ml Syringe IV PUSH PRN PRN Hypoglycemia Protocol Enoxaparin Sodium 40 mg 09/05/21 09:00 09/06/21 08:13 Enoxaparin 40 Mg/0.4 Ml Syringe SUB-Q 40 mg DAILY MIKHAIL Administration Ergocalciferol 50,000 unit 09/07/21 09:00 Ergocalciferol 50,000 Unit Capsule PO WEEKLY MIKHAIL Gabapentin 600 mg 09/05/21 09:00 09/06/21 08:13 Gabapentin 300 Mg Capsule PO 600 mg BID MIKHAIL Administration Glucagon 1 mg 09/04/21 22:51 Glucagon For Inj 1 Mg Vial IM PRN PRN Hypoglycemia Protocol Glucose 15 gm 09/04/21 22:51 Glucose Oral Gel 15 Gm Of Glucse In
--- NOTE | 2021-09-06 09:10 | PM.DS ---
DS: Admitting Diagnosis Discharge Date 9:12 a.m. on September 06, 2021 Admitting Diagnosis Hyponatremia DS: Summary Hospital Course Hospital Course: See discharge summary Time Spent with Patient Time attestation: Total time spent providing and/or coordinating discharge services: START OF DOCTOR RENALDO?S DISCHARGE SUMMARY Date of Admission: September 05, 2021 Date of Discharge: 9:10 a.m. on September 06, 2021 Primary Diagnosis: Hyponatremia, possibly due to chronic diarrhea, possibly due to diuretic use Secondary Diagnosis: Hypertension Diabetes History of CVA Hyperlipidemia Neuropathy Chronic diarrhea Hypomagnesemia, resolved Hypokalemia Degenerative disc disease Query depression Consultations: None Disposition: The patient will be advised follow-up with her primary care physician 5 7 days post discharge for post hospitalization evaluation The patient will require check a BMP 4 days post discharge for diagnosis hyponatremia and hypokalemia Discharge Medications: Flagyl 500 mg p.o. q.6 hours. Quantity 32. 0 refills Potassium chloride 20 mEq p.o. b.i.d. Lisinopril 40 mg p.o. b.i.d. Metformin 1000 mg p.o. b.i.d. Norvasc 10 mg p.o. daily Patella 100 mg p.o. daily Vitamin-D 14070 IU p.o. weekly Gabapentin 600 mg p.o. b.i.d. Lantus 25 units subcutaneously daily and 15 units subcutaneously q.h.s. Imodium 2 mg p.o. q.4 hours p.r.n. diarrhea Ultram 50 mg p.o. q.12 hours p.r.n. headache Trazodone 100 mg p.o. q.h.s. END OF DOCTOR RENALDO?S DISCHARGE SUMMARY DS: Data Data Completed and Pending Labs on day of discharge: Labs from last 24 hours 09/06/21 09/06/21 09/06/21 08:01 05:04 05:04 WBC 9.8 RBC 4.20 Hgb 12.5 Hct 36.3 L MCV 86.4 D MCH 29.8 MCHC 34.4 RDW 13.7 Plt Count 270 MPV 10.0 Immature Gran % (Auto) 1.3 H Neut % (Auto) 63.7 Lymph % (Auto) 19.5 [place] % (Auto) 11.0 H Eos % (Auto) 3.6 Baso % (Auto) 0.9 Lymph # (Auto) 1.90 [place] # (Auto) 1.1 H Eos # (Auto) 0.4 H Baso # (Auto) 0.1 Abs Immat Gran (auto) 0.13 H Absolute Neuts (auto) 6.2 Absolute Nucleated RBC 0.0 Nucleated RBC % 0.0 Sodium 133 L Potassium 3.2 L Chloride 99 Carbon Dioxide 29 Anion Gap 5 L BUN 10 Creatinine 0.70 Estim Creat Clear Calc 80 Estimated GFR > 60 Glucose 147 H POC Capillary Glucose 213 H Serum Osmolality Calcium 8.2 L Free T4 Random Cortisol Urine Osmolality Ur Random Sodium Ref Lab Test Name Ref Lab Test Result 09/06/21 09/05/21 09/05/21 02:05 21:13 20:17 WBC RBC Hgb Hct MCV MCH MCHC RDW Plt Count MPV Immature Gran % (Auto) Neut % (Auto) Lymph % (Auto) [place] % (Auto) Eos % (Auto) Baso % (Auto) Lymph # (Auto) [place] # (Auto) Eos # (Auto) Baso # (Auto) Abs Immat Gran (auto) Absolute Neuts (auto) Absolute Nucleated RBC Nucleated RBC % Sodium 131 L 130 L Potassium Chloride Carbon Dioxide Anion Gap BUN Creatinine Estim Creat Clear Calc Estimated GFR Glucose POC Capillary Glucose 135 H Serum Osmolality Calcium Free T4 Random Cortisol Urine Osmolality Ur Random Sodium Ref Lab Test Name Ref Lab Test Result 09/05/21 09/05/21 09/05/21 17:20 17:20 16:28 WBC RBC Hgb Hct MCV MCH MCHC RDW Plt Count MPV Immature Gran % (Auto) Neut % (Auto) Lymph % (Auto) [place] % (Auto) Eos % (Auto) Baso % (Auto) Lymph # (Auto) [place] # (Auto) Eos # (Auto) Baso # (Auto) Abs Immat Gran (auto) Absolute Neuts (auto) Absolute Nucleated RBC Nucleated RBC % Sodium 125 L Potassium Chloride Carbon Dioxide Anion Gap BUN Creatinine Estim Creat Clear Calc Estimated GFR Gl
[2021-09-06 09:32] LABS: Sodium 135 mmol/L (137-145)
[2021-09-06] MEDS: POTASSIUM CHLORIDE 20 MEQ TABLET 40 MEQ PO (10:11)
[2021-09-08 05:10] LABS: Osmolality, Urine 186 mOsm/kg (50-1200)
== END 2021-09-06 11:40 | disposition home or self-care (01) | DRG 641 ==
LOC: ANHED 18:59 → ANH2MED 20:21
PROVIDERS: Nurse Practitioner; Admitting Provider Family Medicine; Emergency Provider Emergency Medicine; PCP Internal Medicine; Visit Provider Internal Medicine
DX: E83.42 Hypomagnesemia (principal); E87.1 Hypo-osmolality and hyponatremia; E11.9 Type 2 diabetes mellitus without complications; E87.6 Hypokalemia; E78.5 Hyperlipidemia, unspecified; I10 Essential (primary) hypertension; G62.9 Polyneuropathy, unspecified; K52.9 Noninfective gastroenteritis and colitis, unspecified; F32.A Depression, unspecified; D72.829 Elevated white blood cell count, unspecified; Z28.21 Immunization not carried out because of patient refusal; Z79.4 Long term (current) use of insulin; Z79.84 Long term (current) use of oral hypoglycemic drugs; Z86.73 Personal history of transient ischemic attack (TIA), and cerebral infarction without residual deficits
CPT/HCPCS: 36415; 70450; 71045; 80048; 80053; 80061; 81001; 82533; 82728; 82948; 83036; 83735; 83930; 83935; 84100; 84295; 84300; 84439; 84443; 84484; 85025; 85610; 85730; 86255; 87040; 87086; 93005; 99283; 99285; A9270; J0696; J1650; J1815; J3475; J7030

== ENCOUNTER 2021-11-19 10:53 | Outpatient (NON) | payer MEDICARE, SELFPAY ==
[2021-11-19 11:23] LABS: Basophils Absolute Auto 0.1 K/mm3 (0.0-0.1); Basophils Percent Auto 1.1 % (0.2-1.2); Eosinophils Absolute Auto 0.3 K/mm3 (0-0.3); Eosinophils Percent Auto 3.8 % (0-4.4); Hematocrit 43.2 % (37.0-47.0); Hemoglobin 13.7 g/dL (12.0-15.0); Immature Granulocyte Absolute 0.05 K/mm3 (0.00-0.031); Immature Granulocyte Percent A 0.6 % (0-0.5); Lymphocytes Absolute Auto 1.73 K/mm3 (0.9-3.2); Lymphocytes Percent Auto 20.4 % (18.3-44.2); Mean Corpuscular HGB Conc 31.7 g/dl (32-36); Mean Corpuscular Hemoglobin 29.3 pg (26-34); Mean Corpuscular Volume 92.5 fl (80-100); Monocytes Absolute Auto 0.7 K/mm3 (0.1-0.6); Neutrophils Absolute Auto 5.6 K/mm3 (1.3-6.7); Neutrophils Percent Auto 66.1 % (45.5-73.1); Platelet Count Result 319 k/mm3 (150-375); Red Blood Count 4.67 M/mm3 (4.2-5.4); Red Cell Distribution Width 14.7 % (11.5-14.5); White Blood Count 8.5 K/mm3 (4.5-10.0)
[2021-11-19 11:31] LABS: Hemoglobin A1C 7.3 % (<5.7)
[2021-11-19 11:40] LABS: Alanine Aminotransferase 14 U/L (4-35); Albumin Level 3.7 g/dL (3.5-5.1); Alkaline Phosphatase 64 U/L (38-126); Anion Gap 7 mmol/L (8-16); Aspartate Amino Transferase 18 U/L (14-36); Bilirubin,Total 0.4 mg/dL (0.2-1.3); Blood Urea Nitrogen 13 mg/dL (7-17); Calcium 8.8 mg/dL (8.4-10.2); Carbon Dioxide 25 mmol/L (22-30); Chloride 98 mmol/L (98-107); Estimated Glomerular Filt Rate > 60; Glucose 231 mg/dL (65-110); Magnesium 1.5 mg/dL (1.6-2.3); Potassium 4.3 mmol/L (3.4-5.0); Sodium 130 mmol/L (137-145)
[2021-11-19 11:53] LABS: Free T4 Free Thyroxine 1.22 ng/mL (0.78-2.19); Vitamin D 25 Hydroxy 45.1 ng/mL
[2021-11-19 12:57] LABS: Folic Acid 5.8 ng/mL (2.76->20)
== END 2021-11-19 10:54 | disposition home or self-care (01) ==
PROVIDERS: PCP Internal Medicine; Visit Provider Internal Medicine
DX: E11.65 Type 2 diabetes mellitus with hyperglycemia (principal); E78.5 Hyperlipidemia, unspecified; E53.8 Deficiency of other specified B group vitamins; E55.9 Vitamin D deficiency, unspecified
CPT/HCPCS: 80053; 82306; 82607; 82746; 83036; 83735; 84439; 84443; 85025

== ENCOUNTER 2021-12-16 16:04 | Inpatient (IN) | payer MEDICARE, SELFPAY ==
[2021-12-16] VITALS (9 sets, daily range): BP systolic 108–133; BP diastolic 76–99; PULSE 138–174; RESP 18–22; TEMP 37.1; O2SAT 18–98
--- NOTE | ~2021-12-16 | US_ITS ---
EXAMINATION: US renal BI EXAM DATE: 12/17/2021 10:46 INDICATION: Acute kidney insufficiency. TECHNIQUE: Multiple grayscale and Doppler images of the kidneys were obtained (by a technologist who performed the scan) and subsequently reviewed. There is no prior study for comparison. FINDINGS: Right kidney: There is normal contour and echogenicity. It measures 11.0 x 4.3 x 5.2 centimeters. T here are no focal renal lesions identified. There is no hydronephrosis. Left kidney: There is normal contour and echogenicity. It measures 10.3 x 4.6 x 5.8 centimeters. Th ere are no focal renal lesions identified. There is no hydronephrosis. Bladder unremarkable. IMPRESSION: Sonographically unremarkable kidneys. Reviewed, dictated and finalized at location B. [employer]
--- NOTE | ~2021-12-16 | XR_ITS ---
EXAMINATION: XR chest 1V portable DATE: 12/16/2021 16:43 INDICATION: Shortness of breath. TECHNIQUE: A single frontal view of the chest was obtained. COMPARISON: Chest single view 09/04/2021 FINDINGS: The patient is rotated to her left. There are airspace opacities in all right lung zones. N o pleural effusion or pneumothorax. Cardiomegaly is noted. IMPRESSION: 1. Airspace opacities in right lung, consistent with pneumonia versus asymmetric pulmonary edema. 2. Cardiomegaly. Reviewed, dictated and finalized at location A. ICATIONS WRITER IMPRESSION: 1. Airspace opacities in right lung, consistent with pneumonia versus asymmetri c pulmonary edema. 2. Cardiomegaly.
--- NOTE | ~2021-12-16 | XR_ITS ---
XR chest 1V portable DATE: 12/18/2021 06:55 INDICATION: Congestive heart failure TECHNIQUE: Portable AP chest on 12/18/2021 at 0640 hours COMPARISON: 12/16/2021 portable AP chest FINDINGS: Cardiomegaly. There is pulmonary vascular congestion. There are bilateral relatively centra l and lower lung infiltrates which may be due to pulmonary edema; pneumonia is not excluded. There is minimal if any pleural effusion. No pneumothorax. IMPRESSION: Cardiomegaly, pulmonary vascular congestion, bilateral infiltrates suggesting pulmonary e katie. Pneumonia is not excluded There is suggestion of mild improvement of pulmonary vascular congestion and infiltrate since 12/16/19 22 Reviewed, dictated and finalized at location A. AND OIL SERVICER IMPRESSION: Cardiomegaly, pulmonary vascular congestion, bilateral infiltrates suggesting pulmonary edema. Pneumonia is not excluded There is suggestion of mild improvement of pulmonary vascular congestion and in filtrate since 12/16/2021
--- NOTE | ~2021-12-16 | MR_ITS ---
EXAMINATION: MR brain/brain stem wo con EXAM DATE: 12/18/2021 12:21 INDICATION: Altered mental status. TECHNIQUE: Magnetic resonance imaging (MRI) of the brain/brain stem obtained without contrast. Rena al T1, axial diffusion, gradient echo (T2*), T1, T2, FLAIR sequences obtained. Correlation is made t o Head CT 09/04/2021 FINDINGS: Difficult to identify the previously described small infarctions seen on head CT, there is motion on this study. There are no areas of restricted diffusion to suggest acute infarction. There is no acute hemorrhage seen on the T2*, a hemosiderin sensitive sequence. No intraparenchymal brain mass. The ventricles are normal in size. There are no extra-axial collections. Flow voids are seen in the cerebral arteries on the T2-weighted sequences consistent with their expected patency. The or bits are unremarkable. Soft tissue is unremarkable. IMPRESSION: 1. Unremarkable brain MRI examination. Reviewed, dictated and finalized at location B. ANICAL DESIGN TECHNICIAN
--- NOTE | ~2021-12-16 | XR_ITS ---
EXAMINATION: XR chest 1V portable EXAM DATE: 12/22/2021 02:33 INDICATION: SOB, wheezing. TECHNIQUE: Portable AP frontal chest x-ray was obtained. Comparison is made to prior examination from 12/18/2021. FINDINGS: There is cardiomegaly and pulmonary vascular congestion. There is indistinct reticulation w ith a bibasal predominance which may indicate pulmonary edema. Probable small pleural effusions. Over all mild progression in airspace disease suspected. IMPRESSION: Findings with CHF exacerbation, mild interval progression. Pneumonia not excludable. Reviewed, dictated and finalized at location A. [employer] IMPRESSION: Findings with CHF exacerbation, mild interval progression. Pneumon ia not excludable.
--- NOTE | 2021-12-16 16:28 | ECG_ITS ---
Measurements Intervals [place] Rate: 172 P: FL: 0 QRS: -14 QRSD: 93 T: 153 QT: 250 QTc: 423 Interpretive Statements ATRIAL FIBRILLATION WITH RAPID VENTRICULAR RESPONSE ST-T WAVE ABNORMALITY IN HIGH LATERAL LEADS- CONSIDER ISCHEMIA BASELINE ARTIFACT- I, II, III, AVR, AVL, AVF, V3-V6 ABNORMAL ECG Electronically Signed On 12-21-2021 12:43:35 RESEARCH PHLEBOTOMIST by Franck Quesada D.O.
[2021-12-16] MEDS: SODIUM CHLORIDE 0.9% IV 1,000 ML 150 ML IV CONT (17:15)
[2021-12-16] MEDS: dilTIAZem HCl INJ 25 MG/5 ML VIAL 15 MG IV PUSH (17:15)
[2021-12-16] MEDS: dilTIAZem HCl INJ 25 MG/5 ML VIAL 20 MG IV PUSH (17:39)
[2021-12-16 18:35] LABS: Basophils Percent Auto 0.1 % (0.2-1.2); Eosinophils Absolute Auto 0.1 K/mm3 (0-0.3); Eosinophils Percent Auto 1.1 % (0-4.4); Hematocrit 43.6 % (37.0-47.0); Hemoglobin 14.3 g/dL (12.0-15.0); Immature Granulocyte Absolute 0.08 K/mm3 (0.00-0.031); Immature Granulocyte Percent A 0.6 % (0-0.5); Lymphocytes Absolute Auto 1.14 K/mm3 (0.9-3.2); Lymphocytes Percent Auto 8.8 % (18.3-44.2); Mean Corpuscular HGB Conc 32.8 g/dl (32-36); Mean Corpuscular Hemoglobin 30.2 pg (26-34); Mean Corpuscular Volume 92.2 fl (80-100); Mean Platelet Volume 12.1 fl (7.4-10.4); Monocytes Absolute Auto 0.7 K/mm3 (0.1-0.6); Monocytes Percent Auto 5.7 % (2.6-8.5); Neutrophils Absolute Auto 10.8 K/mm3 (1.3-6.7); Neutrophils Percent Auto 83.7 % (45.5-73.1); Platelet Count Result 169 k/mm3 (150-375); Red Blood Count 4.73 M/mm3 (4.2-5.4); Red Cell Distribution Width 20.7 % (11.5-14.5); White Blood Count 12.9 K/mm3 (4.5-10.0)
[2021-12-16 18:39] LABS: Add Urine Microscopic? YES; Appearance Urine Clear (Clear); Bilirubin Urine Negative (Negative); Blood Urine Negative (Negative); Color Urine Yellow (Yellow); Glucose Urine UA Negative (Negative); Ketones Urine Negative (Negative); Leukocyte Esterase Ur Negative LEU/UL (Negative); Mucus Urine Rare /lpf; Nitrate Urine Negative (Negative); Protein Urine 1+ mg/dL (Negative); RBC Urine 0-2 /hpf (0-2); Specific Grav Ur 1.017 (1.001-1.035); Squamous Epithelial Cell Urine Rare /hpf (Few); Urobilinogen Urine Negative mg/dL (<2.0); WBC Urine 0-3 /hpf
[2021-12-16 18:44] LABS: INR 1.4; Prothrombin Time 16.8 Seconds (11.1-14.7)
[2021-12-16 18:56] LABS: Lactic Acid Reflex 1.9 mmol/L (0.7-2.1)
[2021-12-16 19:02] LABS: Alanine Aminotransferase 21 U/L (4-35); Albumin Level 3.5 g/dL (3.5-5.1); Alkaline Phosphatase 145 U/L (38-126); Anion Gap 12 mmol/L (8-16); Aspartate Amino Transferase 31 U/L (14-36); Bilirubin,Total 2.1 mg/dL (0.2-1.3); Blood Urea Nitrogen 60 mg/dL (7-17); Calcium 8.5 mg/dL (8.4-10.2); Carbon Dioxide 23 mmol/L (22-30); Chloride 101 mmol/L (98-107); Estimated CRCL calculation 23 ml/min; Estimated Glomerular Filt Rate 23; Glucose 241 mg/dL (65-110); Potassium 3.4 mmol/L (3.4-5.0); Sodium 136 mmol/L (137-145)
[2021-12-16 19:09] LABS: NT Pro B Type Natriuretic Pept 14800 pg/mL (5-100)
--- NOTE | 2021-12-16 19:24 | PC.NURSE ---
Pt pulled out both IV's inserted. Cannulas intact.
[2021-12-16] MEDS: dilTIAZem 100 MG/100 ML 100 MG/100 ML BAG IV CONT (20:10)
--- NOTE | 2021-12-16 20:49 | ED.GENADULT ---
HPI - General Adult General Chief complaint: Unspecified Stated complaint: AMS Time Seen by Provider: 12/16/21 16:25 Source: patient Mode of arrival: EMS Limitations: no limitations History of Present Illness HPI narrative: 71-year-old with a history of hypertension, diabetes was brought in from home with complaints of my bottom hurts since last few days. However by her EMS patient was covered with stool, laying on the couch for unknown period of time. Patient denies any chest pain, shortness of breath, nausea or vomiting. Onset (ago): day(s) (1) Quality: aching Pain Consistency: constant Relieving factors: none Exacerbating factors: none Associated symptoms: denies other symptoms Related Data Home Medications Medication Instructions Recorded Confirmed loperamide [Anti-Diarrheal 2 mg PO Q4H PRN 09/04/21 09/17/21 (loperamide)] Allergies Allergy/AdvReac Type Severity Reaction Status Date / Time Penicillins Allergy Mild rash Verified 09/14/21 11:24 Review of Systems Review of Systems: All systems reviewed & are unremarkable except as noted in HPI and below Constitutional: Constitutional: Reports no additional constitutional complaints Eyes: Eyes: Reports no additional eye complaints ENT: Reports system reviewed and no additional complaints, except as documented Cardiovascular: Cardiovascular: Reports no additional cardiovascular complaints Respiratory: Respiratory: Reports no additional respiratory complaints Gastrointestinal: Gastrointestinal: Reports no additional gastrointestinal complaints Musculoskeletal: Musculoskeletal: Reports as per HPI Integumentary/Breasts: Skin/Breast: Reports erythema and Reports wounds (Stage I decubitus ulcers) Neurologic: Reports system reviewed and no additional complaints, except as documented PMF Past Medical History Medical History History of CVA (cerebrovascular accident) Hyperlipidemia Hypertension Type 2 diabetes mellitus Surgical History Surgical History History of section, classical Family History Family History Mother Hypertension Family history of malignant neoplasm, Onset Age: 87 Patient's mother is Father Family history of malignant neoplasm, Onset Age: 92 Patient's father is Other Diabetes mellitus Family history of allergic disorder Social History Social History Social History: The patient has 6 children and she is . She has a 15-year-old granddaughter living with her. Patient stated that she is a lifelong nonsmoker. She does not use any alcohol marijuana or illicit drugs. Patient desires to be a full code but does not have a durable power privacy attorney for healthcare. 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 Smoking status: Never smoker Second hand tobacco smoke exposure: No Alcohol intake: never Substance use: never Substance use type: does not use Spiritual care concerns: No Exam Narrative: GENERAL: Well-appearing, well-nourished and confused HEAD: Normocephalic, atraumatic. Hair is matted EYES: PERRLA and EOMI.. NECK: Supple. CHEST: Clear to auscultation. No respiratory distress. HEART: Tachycardic . ABDOMEN: Soft, nontender, nondistended, normal active bowel sounds. EXTREMITIES: Normal range of motion. No edema. SKIN: Warm, dry, no rash. decubitus ulcer stage 2 Stool all over her lower back . NEURO: No focal deficits. Alert and oriented x3. PSYCH: Normal mood and affect. Course Course Emergency Course: Patient still remain in A. fib with RVR even after couple boluses of Cardizem. Initiated Cardizem drip which brought her heart rate down to 120s. Inform patient about her lab work. She is agreeable for admission. Discussed with
--- NOTE | 2021-12-16 21:11 | PC.NURSE ---
Discussed diltiazem drip with ERP Dr. Alvarez. Continue drip at 15 mg/hr per ERP VRBO.
--- NOTE | 2021-12-16 22:01 | PC.NURSE ---
Pt states that she doesn't want to stay in the hospital overnight. ERP made aware.
[2021-12-16] MEDS: FUROSEMIDE INJ 40 MG/4 ML VIAL IV PUSH (22:24)
--- NOTE | 2021-12-16 22:30 | PC.NURSE ---
Pt changes mind, decides to stay.
[2021-12-16] MEDS: ENOXAPARIN 100 MG/ML SYRINGE 85 MG SUB-Q (22:38)
[2021-12-16 23:14] LABS: SARS-CoV-2 RNA PCR Negative
[2021-12-17] VITALS (17 sets, daily range): BP systolic 108–133; BP diastolic 80–96; PULSE 114–147; RESP 18–24; TEMP 36.3–36.5; O2SAT 96–99; BMI 44.8; BMI 133.8
--- NOTE | 2021-12-17 | ECHO_ITS ---
Patient Info Name: Shanelle Sterling Age: 71 years : 1950 Gender: Female Ht: 66 in Wt: 246 lbs BSA: 2.33 m2 HR: 118 bpm BP: 108 / 88 mmHg Heart Rhythm: Atrial Fibrillation Technical Quality: Fair Exam Date: 12/17/2021 1:06 PM Exam Location: Echo Lab Patient Status: Inpatient Admit Date: 12/16/2021 Staff Ordering Physician: Yobany Tapia MD Sonography Technologist: Joanne Klein RDCS Attending Provider: Yobany Tapia MD Exam Type: CA echo doppler color flow Study Info Indications - elevated bnp Complete two-dimensional, color flow and Doppler transthoracic echocardiogram is performed. Summary 1. Complete two-dimensional, color flow and Doppler transthoracic echocardiogram is performed. 2. Left ventricular chamber dimension is moderately enlarged. 3. Left ventricular systolic function is severely reduced, estimated at 15-20%. 4. There is mildly increased left ventricular wall thickness. 5. The left ventricular diastolic function is abnormal. 6. Right ventricular chamber dimension is mildly enlarged. 7. Right ventricular systolic function is reduced. 8. Left atrial chamber dimension is severely enlarged. 9. Right atrial chamber dimension is moderately enlarged. 10. There is mild to moderate mitral valve regurgitation. 11. There is mild tricuspid valve regurgitation. 12. Mild pulmonary hypertension, estimated pulmonary arterial systolic pressure is 41 mmHg. 13. There is mild pulmonic regurgitation. Left Ventricle Left ventricular chamber dimension is moderately enlarged. Left ventricular systolic function is severely reduced, estimated at 15-20%. There is mildly increased left ventricular wall thickness. The left ventricular diastolic function is abnormal. Right Ventricle Right ventricular chamber dimension is mildly enlarged. Right ventricular systolic function is reduced. Left Atria Left atrial chamber dimension is severely enlarged. Right Atria Right atrial chamber dimension is moderately enlarged. Atrial Septum Intact interatrial septum visualized by color flow imaging. Aortic Valve The aortic valve is trileaflet. There is mild aortic valve sclerosis. There is no aortic valve stenosis. There is trace aortic valve regurgitation. Pulmonic Valve The pulmonic valve is normal. There is no pulmonic valve stenosis. There is mild pulmonic regurgitation. Mitral Valve The mitral valve has normal leaflets. There is no mitral valve stenosis. There is mild to moderate mitral valve regurgitation. Tricuspid Valve The tricuspid valve leaflets are normal. There is no significant tricuspid valve stenosis. There is mild tricuspid valve regurgitation. Mild pulmonary hypertension, estimated pulmonary arterial systolic pressure is 41 mmHg. Pericardium/Pleural The pericardium appears normal. There is trivial pericardial effusion. Inferior Vena Cava Normal inferior vena cava with <50% collapse upon inspiration consistent with elevated right atrial pressure, 15 mmHg. Aorta The aortic root size at the sinus of Valsalva is normal. Left Ventricular Outflow Tract Name Value Normal LVOT 2D LVOT Diameter 2.0 cm LVOT Doppler
--- NOTE | 2021-12-17 00:06 | ED.GENADULT ---
HPI - General Adult General Chief complaint: Unspecified Stated complaint: AMS Time Seen by Provider: 12/16/21 16:25 Source: patient Mode of arrival: EMS Limitations: no limitations History of Present Illness Quality: aching Relieving factors: none Exacerbating factors: none Associated symptoms: denies other symptoms Related Data Home Medications Medication Instructions Recorded Confirmed loperamide [Anti-Diarrheal 2 mg PO Q4H PRN 09/04/21 09/17/21 (loperamide)] Allergies Allergy/AdvReac Type Severity Reaction Status Date / Time Penicillins Allergy Mild rash Verified 09/14/21 11:24 [facility] Past Medical History Medical History History of CVA (cerebrovascular accident) Hyperlipidemia Hypertension Type 2 diabetes mellitus Surgical History Surgical History History of section, classical Family History Family History Mother Hypertension Family history of malignant neoplasm, Onset Age: 87 Patient's mother is Father Family history of malignant neoplasm, Onset Age: 92 Patient's father is Other Diabetes mellitus Family history of allergic disorder Social History Social History Social History: The patient has 6 children and she is . She has a 15-year-old granddaughter living with her. Patient stated that she is a lifelong nonsmoker. She does not use any alcohol marijuana or illicit drugs. Patient desires to be a full code but does not have a durable power civil litigation attorney for healthcare. 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 Smoking status: Never smoker Second hand tobacco smoke exposure: No Alcohol intake: never Substance use: never Substance use type: does not use Spiritual care concerns: No Course Vital Signs Vital signs: Vital Signs Temperature 98.8 F 12/16/21 16:15 Pulse Rate 174 H 12/16/21 16:15 Respiratory Rate 18 12/16/21 16:15 Blood Pressure 133/83 12/16/21 16:15 Pulse Oximetry 98 12/16/21 16:15 Temperature 98.8 F 12/16/21 16:15 Pulse Rate 149 H 12/16/21 23:32 Respiratory Rate 22 H 12/16/21 23:32 Blood Pressure 108/80 12/16/21 23:32 Pulse Oximetry 96 12/16/21 23:32 Medical Decision Making Vital Signs Vital Signs: Vital Signs Temperature 98.8 F 12/16/21 16:15 Pulse Rate 174 H 12/16/21 16:15 Respiratory Rate 18 12/16/21 16:15 Blood Pressure 133/83 12/16/21 16:15 Pulse Oximetry 98 12/16/21 16:15 Temperature 98.8 F 12/16/21 16:15 Pulse Rate 149 H 12/16/21 23:32 Respiratory Rate 22 H 12/16/21 23:32 Blood Pressure 108/80 12/16/21 23:32 Pulse Oximetry 96 12/16/21 23:32 Lab Data Result diagrams: 12/16/21 18:20 12/16/21 18:20 Labs: Lab Results 12/16/21 12/16/21 12/16/21 Range/Units 18:20 18:20 18:20 WBC 12.9 H (4.5-10.0) K/mm3 RBC 4.73 (4.2-5.4) M/mm3 Hgb 14.3 (12.0-15.0) g/dL Hct 43.6 (37.0-47.0) % MCV 92.2 (80-100) fl MCH 30.2 (26-34) pg MCHC 32.8 (32-36) g/dl RDW 20.7 H (11.5-14.5) % Plt Count 169 (150-375) k/mm3 MPV 12.1 H (7.4-10.4) fl Immature Gran % (Auto) 0.6 H (0-0.5) % Neut % (Auto) 83.7 H (45.5-73.1) % Lymph % (Auto) 8.8 L (18.3-44.2) % Franklin % (Auto) 5.7 (2.6-8.5) % Eos % (Auto) 1.1 (0-4.4) % Baso % (Auto) 0.1 L (0.2-1.2) % Lymph # (Auto) 1.14 (0.9-3.2) K/mm3 Franklin # (Auto) 0.7 H (0.1-0.6) K/mm3 Eos # (Auto) 0.1 (0-0.3) K/mm3 Baso # (Auto) 0.0 (0.0-0.1) K/mm3 Abs Immat Gran (auto) 0.08 H (0.00-0.031) K/mm3 Absolute Neuts (auto) 10.8 H (1.3-6.7) K/mm3 Absolute Nucleated RBC 0.0 (0.0-0.012) K/mm3 Nucleated RBC % 0.0 (0.0-0.2) % PT 16.8 H (11.1-14.7) Seconds INR
--- NOTE | 2021-12-17 00:15 | PM.IMHP ---
H&P: HPI History of Present Illness Date/Time: 12/17/21 00:15 Chief Complaint: Altered mental status Narrative: This is a 71-year-old female with past medical history significant for hypertension, type 2 diabetes mellitus, obesity. Patient was brought to the emergency room due to family is concerns for patient unable to take care for herself according to medical records when EMS arrived to her house she had been laying in the couch for an unknown time covered in feces. Patient is unable to give any history she states that she wants to go home she does complain about pain in her bottom however not able to provide any details. Upon emergency room arrival and once the patient was cleaned up it was noted that she had several wounds in the skin fold areas and umbilicus foul smelling. Preliminary workup was significant for chest x-ray with lung infiltrates, BUN of 60 creatinine of 2.1 brain natriuretic peptide was of worse 14,000, WBC 12,000. Decision has been made to admit the patient for further evaluation, management and treatment. Review of Systems Review of Systems: ROS unobtainable: Yes unobtainable due to medical condition (Dementia) [facility] Past Medical History Medical History History of CVA (cerebrovascular accident) Hyperlipidemia Hypertension Type 2 diabetes mellitus Surgical History Surgical History History of section, classical Family History Family History Mother Hypertension Family history of malignant neoplasm, Onset Age: 87 Patient's mother is Father Family history of malignant neoplasm, Onset Age: 92 Patient's father is Other Diabetes mellitus Family history of allergic disorder Social History Social History Social History: The patient has 6 children and she is . She has a 15-year-old granddaughter living with her. Patient stated that she is a lifelong nonsmoker. She does not use any alcohol marijuana or illicit drugs. Patient desires to be a full code but does not have a durable power assistant county attorney for healthcare. 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 Smoking status: Never smoker Second hand tobacco smoke exposure: No Alcohol intake: former Drinks per week: 1 Substance use: never Substance use type: does not use Spiritual care concerns: No Meds Home Medications and Allergies Home Medications Medication Instructions Recorded Confirmed Type loperamide [Anti-Diarrheal 2 mg PO Q4H PRN 09/04/21 09/17/21 History (loperamide)] amlodipine [Norvasc] 10 mg PO DAILY #30 tablet 09/06/21 09/17/21 Rx atenolol 100 mg tablet 100 mg PO DAILY #90 tablet 09/07/21 09/17/21 Rx ergocalciferol (vitamin D2) 1,250 1,250 mcg PO WEEKLY #12 cap 09/07/21 09/17/21 Rx mcg (50,000 unit) capsule lisinopril 40 mg tablet 40 mg PO BID #180 tablet 09/07/21 09/17/21 Rx metformin 1,000 mg tablet 1,000 mg PO BID #180 tablet 09/07/21 09/17/21 Rx blood-glucose meter #1 ea 09/14/21 09/14/21 Rx collagenase clostridium histo. 250 1 applic TOPICAL QHS #90 g 09/14/21 09/14/21 Rx unit/gram topical ointment lancets 33 gauge #100 ea 09/18/21 Rx blood sugar diagnostic #100 ea 09/22/21 Rx insulin glargine 100 unit/mL See Rx Instructions SUB-Q BID #40 09/27/21 Rx subcutaneous solution ml potassium chloride 20 mEq 20 meq PO BID #60 tablet 10/09/21 Rx tablet,extended release gabapentin 300 mg capsule 600 mg PO BID #120 cap 10/28/21 Rx citalopram 20 mg tablet 20 mg PO DAILY #90 tablet 11/25/21 Rx Allergies Allergy/AdvReac Type Severity Reaction Status Date / Time Penicillins Allergy Mild rash Verified 09/14/21 11:24 Vital Signs Vital Signs - 24 hr 12/16/21 16:15 12/16/21 16:42 12/16/21 18:08 Temperature 98.8 F Pulse Rate 174 H
--- NOTE | 2021-12-17 03:12 | ADMGEN ---
This patient, Shanelle Sterling, was admitted to IMU Room 213-01 at 0300. Patient/family oriented to hospital policies and general routines including ID bracelet, bed and alarms, visiting hours, pain management, procedures, bathroom and other care routines, personal items, smoking policy, room service/diet, and visiting hours. Information on how to activate the Rapid Response Team has been discussed. Patient/Family are encouraged to report perceived risks to care and to ask questions if they do not understand what they are told or what they should do.
[2021-12-17] MEDS: dilTIAZem HCl INJ 25 MG/5 ML VIAL 10 MG IV PUSH (03:33)
[2021-12-17] MEDS: dilTIAZem 100 MG/100 ML 100 MG/100 ML BAG 15 MG IV CONT (03:43)
[2021-12-17 05:46] LABS: Anion Gap 11 mmol/L (8-16); Blood Urea Nitrogen 52 mg/dL (7-17); Calcium 8.3 mg/dL (8.4-10.2); Carbon Dioxide 25 mmol/L (22-30); Chloride 102 mmol/L (98-107); Estimated Glomerular Filt Rate 29; Glucose 152 mg/dL (65-110); Potassium 2.9 mmol/L (3.4-5.0); Sodium 138 mmol/L (137-145)
[2021-12-17 08:46] LABS: Glucose Point of Care 174 mg/dl (65-105)
--- NOTE | 2021-12-17 09:00 | PC.NURSE ---
Patient refusing all care and medications at this time. Dr. Parisi aware. Patient stating she just wants to leave. Dr. Parisi and this RN explained to patient that if she left she could . Patient stated that she understood and still wants to leave. Stated she would call an [employer] to come get her. Care coordination called to come see patient.
--- NOTE | 2021-12-17 09:01 | PCOTNOTE ---
OT evaluation attempted, nursing in room, pt refused all care from nursing and OT evaluation. Stated she is checking out AMA.
--- NOTE | 2021-12-17 10:00 | PC.NURSE ---
Patient decided to stay in hospital after talking with daughters, care coordination and Dr. Arora.
--- NOTE | 2021-12-17 10:18 | PM.CNCAR ---
Assessment and Plan Assessment and plan (1) Atrial fibrillation with RVR: Code(s): I48.91 - Unspecified atrial fibrillation Status: Acute Assessment and Plan: She has a chads Vasc score of at least 6. Anticoagulation is warranted. Obviously there is a lot of concern regarding her mental status and ability to take care of herself. Heart rate is still fast but she is taken out her IV. Will resume a beta-sourav as she may be going through beta-sourav withdrawal. I do think atenolol is probably a bad choice of medication for her though given her acute renal failure. Will transition her to metoprolol 25 mg p.o. b.i.d. and up titrate as need be. Regarding anticoagulation, will initiate Xarelto at 20 mg daily after MRI is performed on her brain. DC enoxaparin. 2D echocardiogram Doppler will be ordered and reviewed (2) Hypertension associated with diabetes: Code(s): E11.59 - Type 2 diabetes mellitus with other circulatory complications; I15.2 - Hypertension secondary to endocrine disorders Status: Acute Assessment and Plan: Elevated and uncontrolled. Holding lisinopril for now given acute renal failure. Start Norvasc. Transition to a different beta-sourav as detailed above. (3) Hyperlipidemia associated with type 2 diabetes mellitus: Code(s): E11.69 - Type 2 diabetes mellitus with other specified complication; E78.5 - Hyperlipidemia, unspecified Status: Acute Assessment and Plan: I am uncertain as to why she is not on a statin but it would be recommended (4) Hypokalemia: Code(s): E87.6 - Hypokalemia Status: Acute Assessment and Plan: Forty mEq p.o. potassium chloride x1 now (5) Elevated troponin: Code(s): R77.8 - Other specified abnormalities of plasma proteins Status: Acute Assessment and Plan: Not related to ACS. (6) Acute kidney injury: Code(s): N17.9 - Acute kidney failure, unspecified Status: Acute Assessment and Plan: Improving and presumably secondary to dehydration. Continue IV fluids if she allows us to restart an IV History of Present Illness History of Present Illness Consult date/time: 12/17/21 10:18 Requesting physician: Osvaldo Alvarez MD Consult reason: atrial fibrillation Reason For Visit: Atrial fibrillation RVR, CHF Narrative: Date of service 12/17/2021 Reason consultation: Atrial fibrillation Requesting provider: Dr. Alvarez History patient is a 71-year-old female his hypertension, diabetes, obesity who was brought to emergency department because of family concerns of her inability to take care of herself. EMS arrived to her house and found her to be covered in feces and unable to provide any significant history. She was found to be in atrial fibrillation with rapid ventricular response. She was also found to be in acute renal failure. Discussion was had with the patient's daughter Madelin today that the patient has had progressively worsening mental status and ability to take care of herself over the past 6 months or so. The patient herself is being quite often it is actually insisting on going home and leaving a get against medical advice. She does deny any chest pain, shortness breath, syncope, presyncope, paroxysmal nocturnal dyspnea, orthopnea, edema palpitations. Questionable compliance of medications and in fact there is concern that she is not taking her medications routinely. Review of Systems Review of Systems: All systems reviewed & are unremarkable except as noted in HPI and below Constitutional: Constitutional: Denies weakness Eyes: Eyes: Denies blurry vision ENT: Reports Normal hearing present Cardiovascular: Cardiovascular: Denies chest pain Respiratory: Respiratory: Denies dyspnea Gastrointestinal: Gastrointestinal: Denies abdominal pain Genitourinary: Genitourinary: Denies hematuria and Denies flank pain Musculoskeletal: Musculoskeletal: Denies back pain and De
[2021-12-17] MEDS: GABAPENTIN 300 MG CAPSULE PO ×2 (10:56→18:10)
[2021-12-17] MEDS: CITALOPRAM HYDROBROMIDE 20 MG TABLET PO (10:56)
[2021-12-17] MEDS: POTASSIUM CHLORIDE 20 MEQ TABLET 40 MEQ PO (10:56)
[2021-12-17] MEDS: INSULIN GLARGINE (*BKC) 100 UNITS/ML 25 UNITS SUB-Q (10:57)
[2021-12-17] MEDS: METOPROLOL TARTRATE 25 MG TABLET PO ×2 (10:58→22:45)
--- NOTE | 2021-12-17 11:00 | PC.NURSE ---
Patient's hair very matted and unkept. Unable to remove eduardo pins from her hair. MIGUEL Mcbride and ISABELLA Maya explained to patient and patient's daughter that she needs an MRI and it is unable to be completed unless we can cut her hair. Patient and daughter okay with her hair being cut. This RN and MIGUEL Mcbride cut patient's hair.
--- NOTE | 2021-12-17 11:53 | PM.IMPN ---
Progress Note: A&P Assessment and Plan (1) Atrial fibrillation with RVR: Code(s): I48.91 - Unspecified atrial fibrillation Status: Acute Assessment and Plan: Kev brought in to the ED by EMS for buttock pain and found to have AFib. No hx of AFib. Treated with Diltiazem IV bolus then changed to 15mg/hr drip. She was admitted to the IMU. HR higher because viki removed her IV. She has now stated that she will remain compliant so IV to be replaced. Echocardiogram ordered. Xarelto ordered. Cardiology consulted and appreciate their input. (2) CHF (congestive heart failure): Qualifiers: Heart failure chronicity: acute Heart failure type: unspecified Qualified Code(s): I50.9 - Heart failure, unspecified Code(s): I50.9 - Heart failure, unspecified Status: Acute Assessment and Plan: Patient denies SOB. CXR showing airspace opacities in right lung, consistent with pneumonia versus asymmetric pulmonary edema. Not requiring O2. BNP 14K. Stated on Lasix IV. Creatinine toelrating this. Suspect CHF related to the AFib/RVR. Monitor daily intake and output. Monitor renal function (3) Lung infiltrate: Code(s): R91.8 - Other nonspecific abnormal finding of lung field Status: Acute Assessment and Plan: Suspect CXR findings related to above. COVID negative. Cannot exclude PNA but no cough. WBC 13K. She was started on broad-spectrum antibiotics. Blood Cultures in progress. Repeat CXR. If clear, then will stop abx (4) Elevated troponin: Code(s): R77.8 - Other specified abnormalities of plasma proteins Status: Acute Assessment and Plan: Trop elevated to 0.040 felt related to above and possibly due to the HIRAM. Doubt ACS. Cardiology following. Will trend (5) Acute kidney injury: Code(s): N17.9 - Acute kidney failure, unspecified Status: Acute Assessment and Plan: Patient with normal baseline renal function. Cr 2.1 on admisison. Renal ultrasound showing no acute process. Started on Lasix IV with improvement in the Cr down to 1.7. Continue to follow. Will place Foster catheter mostly to improve the perineal inflammation (6) Diabetes mellitus with hyperglycemia: Code(s): E11.65 - Type 2 diabetes mellitus with hyperglycemia Status: Acute Assessment and Plan: A1c 7.3 in October. The patient's blood glucose was reviewed on 12/17 Glucose remains reasonably well controlled. Continue AccuCheks covering with sliding scale. Hypoglycemia protocol available as needed. Continue current medications with Lantus. Metformin on hold due to HIRAM. (7) Dementia: Code(s): F03.90 - Unspecified dementia without behavioral disturbance Status: Acute Assessment and Plan: Apparently new onset. Brain MR ordered. She is only mildly confused at this time. TSH normal but B12 243 in October. Will check MMA and replace B12. (8) Hypertension: Code(s): I10 - Essential (primary) hypertension Status: Chronic Assessment and Plan: Patient's blood pressure was reviewed on 12/17 Blood pressure remains well controlled. Will continue current medications. (9) Hypokalemia: Code(s): E87.6 - Hypokalemia Status: Acute Assessment and Plan: Potassium 2.9 today. She is already on scheduled potassium which was resumed. Will give extra potassium and repeat potassium valve later today. Continue to replace as needed. Check mag level (10) Stage II pressure ulcer: Code(s): L89.92 - Pressure ulcer of unspecified site, stage 2 Status: Acute Assessment and Plan: Wound care to assess. Continue local care. Currently on broad-spectrum antibiotics. Add antifungal treatment. (11) DVT prophylaxis: Code(s): Z29.9 - Encounter for prophylactic measures, unspecified Status: Acute Assessment and Plan: Tip Subjective Date/time seen: 12/17/21 11:53
[2021-12-17 15:25] LABS: Magnesium 1.9 mg/dL (1.6-2.3); Potassium 3.9 mmol/L (3.4-5.0)
[2021-12-17] MEDS: FUROSEMIDE INJ 40 MG/4 ML VIAL IV PUSH ×2 (15:51→22:37)
[2021-12-17 15:52] LABS: Troponin I 0.029 ng/mL (0.000-0.034)
--- NOTE | 2021-12-17 16:03 | PCPTNOTE ---
attempted to see patient for physical therapy evaluation at 16:00. She answered interview questions but otherwise refused to move about or get out of bed. Will attempt again tomorrow.
[2021-12-17 17:07] LABS: Glucose Point of Care 227 mg/dl (65-105)
[2021-12-17 17:12] LABS: Troponin I 0.029 ng/mL (0.000-0.034)
[2021-12-17] MEDS: POTASSIUM CHLORIDE 20 MEQ TABLET.ER PO (18:09)
[2021-12-17] MEDS: RIVAROXABAN 20 MG TABLET PO (18:10)
[2021-12-17] MEDS: ACETAMINOPHEN 325 MG TABLET 650 MG PO (18:20)
[2021-12-17] MEDS: INSULIN ASPART (*BKC) 100 UNITS/ML SUB-Q (18:20)
[2021-12-17] MEDS: TOLNAFTATE 1% POWDER 45 GM BTL 1 APPLIC TOPICAL ×2 (22:45→22:46)
[2021-12-17 22:48] LABS: Glucose Point of Care 123 mg/dl (65-105)
[2021-12-18] VITALS (17 sets, daily range): BP systolic 101–120; BP diastolic 44–89; PULSE 109–140; RESP 18–24; TEMP 36.1–37; O2SAT 96–99
[2021-12-18] MEDS: METOPROLOL TARTRATE 25 MG TABLET PO (01:09)
[2021-12-18 04:49] LABS: Basophils Percent Auto 0.3 % (0.2-1.2); Eosinophils Absolute Auto 0.4 K/mm3 (0-0.3); Eosinophils Percent Auto 4.8 % (0-4.4); Hematocrit 39.3 % (37.0-47.0); Hemoglobin 12.7 g/dL (12.0-15.0); Immature Granulocyte Absolute 0.05 K/mm3 (0.00-0.031); Immature Granulocyte Percent A 0.6 % (0-0.5); Lymphocytes Percent Auto 19.4 % (18.3-44.2); Mean Corpuscular HGB Conc 32.3 g/dl (32-36); Mean Corpuscular Hemoglobin 29.7 pg (26-34); Mean Corpuscular Volume 91.8 fl (80-100); Mean Platelet Volume 11.9 fl (7.4-10.4); Monocytes Absolute Auto 0.7 K/mm3 (0.1-0.6); Neutrophils Absolute Auto 5.1 K/mm3 (1.3-6.7); Neutrophils Percent Auto 65.9 % (45.5-73.1); Platelet Count Result 166 k/mm3 (150-375); Red Blood Count 4.28 M/mm3 (4.2-5.4); Red Cell Distribution Width 20.3 % (11.5-14.5); White Blood Count 7.8 K/mm3 (4.5-10.0)
[2021-12-18 05:10] LABS: Alanine Aminotransferase 18 U/L (4-35); Albumin Level 2.9 g/dL (3.5-5.1); Alkaline Phosphatase 99 U/L (38-126); Anion Gap 9 mmol/L (8-16); Aspartate Amino Transferase 26 U/L (14-36); Bilirubin,Total 1.2 mg/dL (0.2-1.3); Blood Urea Nitrogen 55 mg/dL (7-17); Calcium 8.1 mg/dL (8.4-10.2); Carbon Dioxide 25 mmol/L (22-30); Chloride 103 mmol/L (98-107); Estimated CRCL calculation 32 ml/min; Estimated Glomerular Filt Rate 28; Glucose 115 mg/dL (65-110); Magnesium 1.8 mg/dL (1.6-2.3); Phosphorus 4.6 mg/dL (2.5-4.5); Potassium 3.6 mmol/L (3.4-5.0); Sodium 137 mmol/L (137-145)
[2021-12-18] MEDS: POTASSIUM CHLORIDE 20 MEQ TABLET.ER PO ×2 (08:47→17:06)
[2021-12-18] MEDS: METOPROLOL TARTRATE 50 MG TAB PO ×2 (08:48→20:24)
[2021-12-18] MEDS: FUROSEMIDE INJ 40 MG/4 ML VIAL IV PUSH ×2 (08:48→20:23)
[2021-12-18] MEDS: GABAPENTIN 300 MG CAPSULE PO ×2 (08:48→17:05)
[2021-12-18] MEDS: TOLNAFTATE 1% POWDER 45 GM BTL 1 APPLIC TOPICAL ×4 (08:49→20:26)
[2021-12-18 08:57] LABS: Glucose Point of Care 118 mg/dl (65-105)
[2021-12-18] MEDS: INSULIN GLARGINE (*BKC) 100 UNITS/ML 25 UNITS SUB-Q (08:59)
[2021-12-18] MEDS: CITALOPRAM HYDROBROMIDE 20 MG TABLET PO (09:10)
--- NOTE | 2021-12-18 10:36 | ECG_ITS ---
Measurements Intervals [place] Rate: 120 P: AK: 0 QRS: -12 QRSD: 94 T: 154 QT: 324 QTc: 459 Interpretive Statements ATRIAL FIBRILLATION WITH RAPID VENTRICULAR RESPONSE LOW QRS VOLTAGE IN PRECORDIAL LEADS ST-T WAVE ABNORMALITY IN HIGH LATERAL LEADS- CONSIDER ISCHEMIA BASELINE WANDER- I, II ABNORMAL ECG Electronically Signed On 12-18-2021 11:43:51 [employer] by Franck Quesada D.O.
--- NOTE | 2021-12-18 10:53 | PM.PNCARD ---
Progress Note: A&P Additional Plan 71-year-old white female with longstanding hypertension brought into the hospital after being found on the floor at her home covered in fecal material. She was not in any distress cardiac beasley was found to be in atrial fibrillation of unknown chronicity unfortunately also by echo is now been found to have a fairly severe dilated cardiomyopathy. She has been placed on metoprolol for heart rate control which is appropriate. Today I will start her on Entresto. Systemic anticoagulation has been started because of her atrial fibrillation. She seems to have a limited understanding of the cardiac issues as I dictated above. Because of her overall rather poor condition we may or may not pursue aggressive/invasive evaluation of her coronary arteries. When she is rate controlled and on a appropriate medical regimen with systemic anticoagulation I would anticipate discharge with outpatient follow-up with Dr. Arora. Valentino Oseguera MD [facility] Subjective Date/time seen: Date of service: 12/18/21 10:53 Interval history: Follow-up visit in this 71-year-old woman with: Atrial fibrillation of unknown chronicity. ECG several months ago did demonstrate sinus rhythm. She was brought to the hospital after being found on the floor her apartment for an unknown amount of time covered in feces. She does not describe any previous cardiac history. This morning she is awake and alert but not completely appropriate. She does not remember being brought here in the setting described above she states she came to the hospital because of pain in her buttocks. Denies any cardiovascular symptoms. Unfortunately echocardiogram demonstrates a severe dilated cardiomyopathy with very low ejection fraction. She has been placed on metoprolol for heart rate control. She previously was taking a high dose of lisinopril for hypertension. Obviously in the setting described above she has not been taking any of her medication for at least a few days before coming in the hospital. Patient has renal insufficiency ultrasound of the kidneys was normal. Long discussion with the patient about atrial fibrillation and cardiomyopathy. She seems to understand this at least superficially. Exam Const: General: comfortable and no acute distress Other: Obese white female appears to be fairly comfortable in bed head of the bed elevated about 30?. HENMT: Mouth: Yes moist mucous membranes Eyes: Sclera: sclerae normal Pupils: Equal, round and reactive pupils present Neck: Neck: supple Other: Difficult to assess for venous distension given her body habitus no obvious JVD Resp: Effort & Inspection: normal respiratory effort Other: Breath sounds are distant but essentially clear Cardio: Rhythm: abnormal rhythm irregularly irregular Other: PMI difficult to palpate GI: GI Palp: Yes Soft to palpation Auscultation: normal bowel sounds Neuro: Cognition (Neuro): abnormal cognition Extrem: General: normal to inspection Other: Obese but no significant pitting edema Objective Data Vital Signs Vital Signs: Vital Signs - 24 hr 12/17/21 10:58 12/17/21 12:00 12/17/21 14:00 Temperature Pulse Rate 147 H 135 H 130 H Respiratory Rate Blood Pressure Pulse Oximetry 12/17/21 16:00 12/17/21 18:00 12/17/21 19:44 Temperature 36.3 C L 36.5 C Pulse Rate 114 H 121 H 145 H Respiratory Rate 24 H 20 Blood Pressure 120/91 H 118/96 H Pulse Oximetry 98 99 12/17/21 20:00 12/17/21 22:00 12/17/21 22:45 Temperature Pulse Rate 141 H 134 H 122 H Respiratory Rate Blood Pressure Pulse Oximetry 12/17/21 23:27 12/17/21 23:40 12/18/21 00:00 Temperature 36.4 C Pulse Rate 139 H 128 H 135 H Respiratory Rate 22 H Blood Pressure 116/93 H 116/93 H Pulse Oximetry 98 12/18/21 01:09 12/18/21 02:00 12/18/21 04:00 Temperature 36.2 C L Pulse Rate 125 H 116 H 117 H Respiratory Rate 20 Blood Pressure 120/78 Pulse Oximetry
--- NOTE | 2021-12-18 10:58 | PM.IMPN ---
Progress Note: A&P Assessment and Plan (1) Atrial fibrillation with RVR: Code(s): I48.91 - Unspecified atrial fibrillation Status: Acute Assessment and Plan: Kev brought in to the ED by EMS for buttock pain and found to have AFib. No hx of AFib. She is asymptomatic so unclear of duration of AFib. Treated with Diltiazem IV bolus then changed to 15mg/hr drip. She was admitted to the IMU. Patient remaining compliant. Echo noted. Continue Xarelto. She was switched to Lopressor. HR still poorly controlled. Cardiology consulted and appreciate their input. (2) CHF (congestive heart failure): Qualifiers: Heart failure chronicity: acute Heart failure type: unspecified Qualified Code(s): I50.9 - Heart failure, unspecified Code(s): I50.9 - Heart failure, unspecified Status: Acute Assessment and Plan: Patient with acute on chronic systolic and diastolic CHF. Patient denies SOB. CXR showing airspace opacities in right lung, consistent with pneumonia versus asymmetric pulmonary edema; repeat CXR showing no change. Not requiring O2. BNP 14K. Continue Lasix IV. Creatinine elevated but stable. Unclear if the CMP related to the AFib or other etiology. Continue Lopressor; Entresto added. Monitor daily intake and output. Monitor renal function. (3) Lung infiltrate: Code(s): R91.8 - Other nonspecific abnormal finding of lung field Status: Acute Assessment and Plan: Suspect CXR findings related to above. COVID negative. Cannot exclude PNA but no cough. WBC 13K on admission but improved today. She was started on broad-spectrum antibiotics. Blood Cultures NGTD. Repeat CXR showing no change. Continue abx for now. (4) Elevated troponin: Code(s): R77.8 - Other specified abnormalities of plasma proteins Status: Acute Assessment and Plan: Trop peaked at 0.040 felt related to above and possibly due to the HIRAM. Doubt ACS. Cardiology following. (5) Acute kidney injury: Code(s): N17.9 - Acute kidney failure, unspecified Status: Acute Assessment and Plan: Patient with normal baseline renal function. Cr 2.1 on admisison. Renal ultrasound showing no acute process. Started on Lasix IV with improvement in the Cr down to 1.7 but about unchanged today. [place] related to poor renal perfusion with poor EF. Continue to follow. Monitor UOP. (6) Diabetes mellitus with hyperglycemia: Code(s): E11.65 - Type 2 diabetes mellitus with hyperglycemia Status: Acute Assessment and Plan: A1c 7.3 in October. The patient's blood glucose was reviewed on 12/18 Glucose remains reasonably well controlled. Continue AccuCheks covering with sliding scale. Hypoglycemia protocol available as needed. Continue current medications with Lantus. Metformin on hold due to HIRAM. (7) Dementia: Code(s): F03.90 - Unspecified dementia without behavioral disturbance Status: Acute Assessment and Plan: Apparently new onset. Brain MR completed but pending. She is only mildly confused at this time. TSH normal but B12 243 in October. MMA pending. Ddaily IM B12 replacement x3 days. Add oral B12. (8) Hypertension: Code(s): I10 - Essential (primary) hypertension Status: Chronic Assessment and Plan: Patient's blood pressure was reviewed on 12/18. Blood pressure remains well controlled. Will continue current medications. (9) Hypokalemia: Code(s): E87.6 - Hypokalemia Status: Acute Assessment and Plan: Potassium 2.9 yesterday. She is already on scheduled potassium which was resumed. Potassium 3.6 and Mag 1.8 today. Continue to replace as needed. Add oral mag. (10) Stage II pressure ulcer: Code(s): L89.92 - Pressure ulcer of unspecified site, stage 2 Status: Acute Assessment and Plan: Wound care to assess. Continue local care including anti-fungal topical treatment. Currently o
[2021-12-18 12:37] LABS: Glucose Point of Care 206 mg/dl (65-105)
[2021-12-18] MEDS: MAGNESIUM OXIDE 400 MG TABLET PO (13:25)
[2021-12-18] MEDS: CYANOCOBALAMIN INJ 1,000 MCG/ML VIAL 1000 MCG IM (13:26)
[2021-12-18] MEDS: INSULIN ASPART (*BKC) 100 UNITS/ML SUB-Q (13:27)
[2021-12-18 17:05] LABS: Glucose Point of Care 148 mg/dl (65-105)
[2021-12-18] MEDS: RIVAROXABAN 20 MG TABLET PO (17:06)
[2021-12-18] MEDS: SACUBITRIL/VALSARTAN 24-26 MG TABLET 1 TAB PO (20:25)
[2021-12-18 21:13] LABS: Glucose Point of Care 210 mg/dl (65-105)
[2021-12-18] MEDS: INSULIN GLARGINE (*BKC) 100 UNITS/ML 15 UNITS SUB-Q (22:39)
[2021-12-18] MEDS: ACETAMINOPHEN 325 MG TABLET 650 MG PO (22:42)
[2021-12-19] VITALS (16 sets, daily range): BP systolic 96–111; BP diastolic 52–94; PULSE 110–148; RESP 18–22; TEMP 36.3–37.2; O2SAT 93–100
[2021-12-19 05:05] LABS: Basophils Absolute Auto 0.1 K/mm3 (0.0-0.1); Basophils Percent Auto 0.5 % (0.2-1.2); Eosinophils Absolute Auto 0.3 K/mm3 (0-0.3); Eosinophils Percent Auto 3.4 % (0-4.4); Hematocrit 39.2 % (37.0-47.0); Hemoglobin 12.6 g/dL (12.0-15.0); Immature Granulocyte Absolute 0.06 K/mm3 (0.00-0.031); Immature Granulocyte Percent A 0.6 % (0-0.5); Lymphocytes Absolute Auto 1.72 K/mm3 (0.9-3.2); Lymphocytes Percent Auto 18.4 % (18.3-44.2); Mean Corpuscular HGB Conc 32.1 g/dl (32-36); Mean Corpuscular Hemoglobin 30.1 pg (26-34); Mean Corpuscular Volume 93.6 fl (80-100); Mean Platelet Volume 11.7 fl (7.4-10.4); Monocytes Absolute Auto 0.8 K/mm3 (0.1-0.6); Monocytes Percent Auto 8.5 % (2.6-8.5); Neutrophils Absolute Auto 6.4 K/mm3 (1.3-6.7); Neutrophils Percent Auto 68.6 % (45.5-73.1); Platelet Count Result 175 k/mm3 (150-375); Red Blood Count 4.19 M/mm3 (4.2-5.4); Red Cell Distribution Width 19.9 % (11.5-14.5); White Blood Count 9.4 K/mm3 (4.5-10.0)
[2021-12-19 05:22] LABS: Alanine Aminotransferase 18 U/L (4-35); Albumin Level 2.8 g/dL (3.5-5.1); Alkaline Phosphatase 80 U/L (38-126); Anion Gap 8 mmol/L (8-16); Aspartate Amino Transferase 23 U/L (14-36); Bilirubin,Total 0.8 mg/dL (0.2-1.3); Blood Urea Nitrogen 55 mg/dL (7-17); Calcium 7.7 mg/dL (8.4-10.2); Carbon Dioxide 24 mmol/L (22-30); Chloride 98 mmol/L (98-107); Estimated CRCL calculation 32 ml/min; Estimated Glomerular Filt Rate 28; Glucose 124 mg/dL (65-110); Magnesium 1.6 mg/dL (1.6-2.3); Phosphorus 4.4 mg/dL (2.5-4.5); Potassium 3.5 mmol/L (3.4-5.0); Sodium 130 mmol/L (137-145)
[2021-12-19 08:50] LABS: Glucose Point of Care 95 mg/dl (65-105)
[2021-12-19] MEDS: POTASSIUM CHLORIDE 20 MEQ TABLET.ER PO ×2 (09:06→17:44)
[2021-12-19] MEDS: CYANOCOBALAMIN 1,000 MCG TABLET 1000 MCG PO (09:06)
[2021-12-19] MEDS: CITALOPRAM HYDROBROMIDE 20 MG TABLET PO (09:06)
[2021-12-19] MEDS: CYANOCOBALAMIN INJ 1,000 MCG/ML VIAL 1000 MCG IM (09:06)
[2021-12-19] MEDS: MAGNESIUM OXIDE 400 MG TABLET PO (09:07)
[2021-12-19] MEDS: METOPROLOL TARTRATE 50 MG TAB PO (09:07)
[2021-12-19] MEDS: GABAPENTIN 300 MG CAPSULE PO ×2 (09:07→17:44)
[2021-12-19] MEDS: FUROSEMIDE INJ 40 MG/4 ML VIAL IV PUSH (09:07)
[2021-12-19] MEDS: SACUBITRIL/VALSARTAN 24-26 MG TABLET 1 TAB PO ×2 (09:08→21:59)
[2021-12-19] MEDS: TOLNAFTATE 1% POWDER 45 GM BTL 1 APPLIC TOPICAL ×4 (09:09→21:59)
[2021-12-19] MEDS: INSULIN GLARGINE (*BKC) 100 UNITS/ML 25 UNITS SUB-Q (09:09)
[2021-12-19] MEDS: ACETAMINOPHEN 325 MG TABLET 650 MG PO (09:20)
--- NOTE | 2021-12-19 10:09 | PM.IMPN ---
Progress Note: A&P Assessment and Plan (1) Atrial fibrillation with RVR: Code(s): I48.91 - Unspecified atrial fibrillation Status: Acute Assessment and Plan: Initially treated with diltiazem bolus and drip at 15 milligrams/hour transitioned to metoprolol tartrate 50 mg every 12 hours increased to 50 mg every 8 hours 12/19 (2) CHF (congestive heart failure): Qualifiers: Heart failure chronicity: acute Heart failure type: unspecified Qualified Code(s): I50.9 - Heart failure, unspecified Code(s): I50.9 - Heart failure, unspecified Status: Acute Assessment and Plan: acute on chronic systolic and diastolic CHF. Stop IV furosemide due to hyponatremia (3) Lung infiltrate: Code(s): R91.8 - Other nonspecific abnormal finding of lung field Status: Acute Assessment and Plan: Suspect CXR findings due to congestive heart failure. COVID negative. Cannot exclude PNA but no cough. WBC 13K on admission but improved today. She was started on Zosyn. Blood Cultures NGTD. Repeat CXR showing no change. Continue abx for now. (4) Elevated troponin: Code(s): R77.8 - Other specified abnormalities of plasma proteins Status: Acute Assessment and Plan: Trop peaked at 0.040 felt related to above and possibly due to the HIRAM. No ACS. (5) Acute kidney injury: Code(s): N17.9 - Acute kidney failure, unspecified Status: Acute Assessment and Plan: Patient with normal baseline renal function. Cr 2.1 on admisison. Renal ultrasound showing no acute process. Started on Lasix IV with improvement in the Cr down to 1.7 12/19 1.8 (6) Diabetes mellitus with hyperglycemia: Code(s): E11.65 - Type 2 diabetes mellitus with hyperglycemia Status: Acute Assessment and Plan: A1c 7.3 in October. The patient's blood glucose was reviewed on 12/19 Glucose remains reasonably well controlled. Continue AccuCheks covering with sliding scale. Hypoglycemia protocol available as needed. Continue current medications with Lantus. Metformin on hold due to HIRAM. (7) Dementia: Code(s): F03.90 - Unspecified dementia without behavioral disturbance Status: Acute Assessment and Plan: Apparently new onset. Brain MR completed and unrevealing. She is only mildly confused at this time. TSH normal but B12 243 in October. MMA pending. Daily IM B12 replacement x3 days. Add oral B12. (8) Hypertension: Code(s): I10 - Essential (primary) hypertension Status: Chronic Assessment and Plan: Patient's blood pressure was reviewed on 12/18. Blood pressure remains well controlled. Will continue current medications. (9) Hypokalemia: Code(s): E87.6 - Hypokalemia Status: Acute Assessment and Plan: Potassium 2.9 yesterday. She is already on scheduled potassium which was resumed. Potassium 3.6 and Mag 1.8 today. Continue to replace as needed. Add oral mag. (10) Stage II pressure ulcer: Code(s): L89.92 - Pressure ulcer of unspecified site, stage 2 Status: Acute Assessment and Plan: Wound care to assess. Continue local care including anti-fungal topical treatment. Currently on broad-spectrum antibiotics. (11) Weakness: Code(s): R53.1 - Weakness Status: Acute Assessment and Plan: Related to above. She is compliant for the most part with therapy. Continue PT/OT. (12) DVT prophylaxis: Code(s): Z29.9 - Encounter for prophylactic measures, unspecified Status: Acute Assessment and Plan: Xarelto Subjective Date/time seen: 12/19/21 10:09 Interval history: 71-year-old woman with Atrial fibrillation of unknown chronicity. ECG several months ago did demonstrate sinus rhythm. She was brought to the hospital after being found on the floor her apartment for an unknown amount of time covered in feces. visit. Denied
[2021-12-19] MEDS: POTASSIUM CHLORIDE 20 MEQ TABLET 40 MEQ PO (10:33)
[2021-12-19 10:52] LABS: Creatinine Urine 43.4 mg/dL; Urea Random Urine 439 MG/DL
--- NOTE | 2021-12-19 11:10 | PM.PNCARD ---
Progress Note: A&P Assessment and Plan (1) Atrial fibrillation with RVR: Code(s): I48.91 - Unspecified atrial fibrillation Status: Acute Assessment and Plan: She has a chads Vasc score of at least 6. Anticoagulation is warranted but her creatinine clearance is less than 50. Proper dose of Xarelto at this point is 15 mg daily. If her kidney function does improve, Xarelto dose should be adjusted accordingly. Her rate is better but still elevated. Would like to transition her to the CHF/cardiomyopathy form of metoprolol. Therefore will start metoprolol succinate at 75 mg p.o. daily starting tomorrow. Up titrate as need be and tolerated. She will eventually cardioverted plus minus ANAYELI depending on timing of need (2) Hypertension associated with diabetes: Code(s): E11.59 - Type 2 diabetes mellitus with other circulatory complications; I15.2 - Hypertension secondary to endocrine disorders Status: Acute Assessment and Plan: Continue Entresto, metoprolol. (3) Hyperlipidemia associated with type 2 diabetes mellitus: Code(s): E11.69 - Type 2 diabetes mellitus with other specified complication; E78.5 - Hyperlipidemia, unspecified Status: Acute Assessment and Plan: I am uncertain as to why she is not on a statin but it would be recommended (4) Hypokalemia: Code(s): E87.6 - Hypokalemia Status: Acute Assessment and Plan: Continue potassium supplementation (5) Elevated troponin: Code(s): R77.8 - Other specified abnormalities of plasma proteins Status: Acute Assessment and Plan: Not related to ACS. (6) Acute kidney injury: Code(s): N17.9 - Acute kidney failure, unspecified Status: Acute Assessment and Plan: Likely secondary to reduced renal perfusion from her severe cardiomyopathy Subjective Date/time seen: 12/19/21 11:10 Interval history: 71-year-old woman with Atrial fibrillation of unknown chronicity. ECG several months ago did demonstrate sinus rhythm. She was brought to the hospital after being found on the floor her apartment for an unknown amount of time covered in feces. Follow-up note 12/19/2021: Denies any chest pain or shortness of breath. Heart rate is better although still mildly elevated. Review of Systems Review of Systems: All systems reviewed & are unremarkable except as noted in HPI and below Constitutional: Constitutional: Denies fatigue, Denies headache(s) and Denies weakness Eyes: Eyes: Denies blurry vision ENT: Reports Normal hearing present, Denies headache(s) and Denies neck pain Cardiovascular: Cardiovascular: Denies chest pain and Denies dyspnea Respiratory: Respiratory: Denies dyspnea Gastrointestinal: Gastrointestinal: Denies abdominal pain Genitourinary: Genitourinary: Denies hematuria and Denies flank pain Musculoskeletal: Musculoskeletal: Denies back pain and Denies neck pain Integumentary/Breasts: Skin/Breast: Denies dry skin Neurologic: Reports Normal hearing present, Denies headache(s) and Denies weakness Psychiatric: Psychiatric: Denies anxiety Endocrine: Endocrine: Denies fatigue Hematologic/Lymphatic: Hematologic/Lymphatic: Denies easy bleeding Allergic/Immunologic: Allergic/Immunologic: Denies GI upset with certain foods Exam Narrative: Patient is awake and in. Appears unkempt but stated age Const: General: comfortable and no acute distress Other: Obese white female appears to be fairly comfortable in bed head of the bed elevated about 30?. HENMT: General nose exam: Normal nares present Mouth: Yes moist mucous membranes Eyes: Sclera: sclerae normal Pupils: Equal, round and reactive pupils present Neck: Neck: supple and no JVD Other: Difficult to assess for venous distension given her body habitus no obvious JVD Chest: Other: No reproducible chest wall pain to palpation Resp: Effort & Inspection: normal respiratory effort Auscultation: clear t
[2021-12-19] MEDS: METOPROLOL SUCCINATE EXT REL 25 MG TABCR PO (12:25)
[2021-12-19 12:44] LABS: Glucose Point of Care 165 mg/dl (65-105)
[2021-12-19 17:25] LABS: Glucose Point of Care 171 mg/dl (65-105)
[2021-12-19] MEDS: RIVAROXABAN 15 MG TABLET PO (17:44)
[2021-12-19 20:21] LABS: Glucose Point of Care 198 mg/dl (65-105)
[2021-12-19] MEDS: INSULIN GLARGINE (*BKC) 100 UNITS/ML 15 UNITS SUB-Q (21:58)
[2021-12-20] VITALS (14 sets, daily range): BP systolic 98–117; BP diastolic 47–90; PULSE 107–160; RESP 16–24; TEMP 36.4–37.2; O2SAT 95–100
--- NOTE | 2021-12-20 08:26 | PCOTNOTE ---
Attempted to see patient this AM for skilled OT session. Patient refused participation in treatment, not opening eyes and shaking head NO. Will attempt second trial later this date if possible. Will continue per OT Plan of Care.
[2021-12-20 08:41] LABS: Anion Gap 10 mmol/L (8-16); Blood Urea Nitrogen 49 mg/dL (7-17); Carbon Dioxide 21 mmol/L (22-30); Chloride 99 mmol/L (98-107); Estimated CRCL calculation 35 ml/min; Estimated Glomerular Filt Rate 32; Glucose 69 mg/dL (65-110); Potassium 3.8 mmol/L (3.4-5.0); Sodium 130 mmol/L (137-145)
[2021-12-20 08:54] LABS: Glucose Point of Care 67 mg/dl (65-105)
[2021-12-20 09:21] LABS: Vancomycin Trough 11.6 ug/mL (10.0-20.0)
[2021-12-20] MEDS: CITALOPRAM HYDROBROMIDE 20 MG TABLET PO (09:33)
[2021-12-20] MEDS: POTASSIUM CHLORIDE 20 MEQ TABLET.ER PO ×2 (09:33→17:30)
[2021-12-20] MEDS: CYANOCOBALAMIN 1,000 MCG TABLET 1000 MCG PO (09:33)
[2021-12-20] MEDS: SACUBITRIL/VALSARTAN 24-26 MG TABLET 1 TAB PO ×2 (09:34→20:06)
[2021-12-20] MEDS: METOPROLOL SUCCINATE EXT REL 25 MG, METOPROLOL SUCCINATE EXT REL 50 MG 75 MG PO (09:34)
[2021-12-20] MEDS: MAGNESIUM OXIDE 400 MG TABLET PO (09:34)
[2021-12-20] MEDS: GABAPENTIN 300 MG CAPSULE PO ×2 (09:34→17:30)
[2021-12-20] MEDS: CYANOCOBALAMIN INJ 1,000 MCG/ML VIAL 1000 MCG IM (09:34)
[2021-12-20] MEDS: TOLNAFTATE 1% POWDER 45 GM BTL 1 APPLIC TOPICAL ×4 (09:36→20:07)
[2021-12-20] MEDS: INSULIN GLARGINE (*BKC) 100 UNITS/ML 25 UNITS SUB-Q (09:54)
--- NOTE | 2021-12-20 09:56 | PM.IMPN ---
Progress Note: A&P Assessment and Plan (1) Atrial fibrillation with RVR: Code(s): I48.91 - Unspecified atrial fibrillation Status: Acute Assessment and Plan: Initially treated with diltiazem bolus and drip at 15 milligrams/hour transitioned to metoprolol tartrate 50 mg every 12 hours increased to 50 mg every 8 hours 12/19 12/19 cardiology switched to metoprolol succinate and will adjust further to control rate (2) CHF (congestive heart failure): Qualifiers: Heart failure chronicity: acute Heart failure type: unspecified Qualified Code(s): I50.9 - Heart failure, unspecified Code(s): I50.9 - Heart failure, unspecified Status: Acute Assessment and Plan: acute on chronic systolic and diastolic CHF. 12/19 Stopped IV furosemide due to hyponatremia (3) Hyponatremia: Code(s): E87.1 - Hypo-osmolality and hyponatremia Status: Acute Assessment and Plan: Sodium at admission 136 12/19 sodium 130 so diuretics discontinued 12/20 sodium at 1:30, Fractional excretion of urea 37.2% (borderline for volume depletion) Continue to monitor while holding furosemide (4) Lung infiltrate: Code(s): R91.8 - Other nonspecific abnormal finding of lung field Status: Acute Assessment and Plan: Suspect CXR findings due to congestive heart failure. COVID negative. Cannot exclude PNA but no cough. WBC 13K on admission but improved today. She was started on Zosyn. Blood Cultures NGTD. Repeat CXR showing no change. Continue abx for now. (5) Elevated troponin: Code(s): R77.8 - Other specified abnormalities of plasma proteins Status: Acute Assessment and Plan: Trop peaked at 0.040 felt related to above and possibly due to the HIRAM. No ACS. (6) Acute kidney injury: Code(s): N17.9 - Acute kidney failure, unspecified Status: Acute Assessment and Plan: Patient with normal baseline renal function. Cr 2.1 on admisison. Renal ultrasound showing no acute process. Started on Lasix IV with improvement in the Cr down to 1.7 12/19 1.8, 12/20 1.6 (7) Diabetes mellitus with hyperglycemia: Code(s): E11.65 - Type 2 diabetes mellitus with hyperglycemia Status: Acute Assessment and Plan: A1c 7.3 in October. The patient's blood glucose was reviewed on 12/20 Glucose remains reasonably well controlled. Continue AccuCheks covering with sliding scale. Hypoglycemia protocol available as needed. Continue current medications with Lantus. Metformin on hold due to HIRAM. (8) Dementia: Code(s): F03.90 - Unspecified dementia without behavioral disturbance Status: Acute Assessment and Plan: Apparently new onset. Brain MR completed and unrevealing. She is only mildly confused at this time. TSH normal but B12 243 in October. MMA pending. Daily IM B12 replacement x3 days. Oral B12 as well. (9) Hypertension: Code(s): I10 - Essential (primary) hypertension Status: Chronic Assessment and Plan: Patient's blood pressure was reviewed on 12/20 Blood pressure remains well controlled. Will continue current medications. (10) Hypokalemia: Code(s): E87.6 - Hypokalemia Status: Acute Assessment and Plan: Resolved. 12/20 3.8 (11) Stage II pressure ulcer: Code(s): L89.92 - Pressure ulcer of unspecified site, stage 2 Status: Acute Assessment and Plan: Continue wound care. (12) Weakness: Code(s): R53.1 - Weakness Status: Acute Assessment and Plan: Related to above. She is compliant for the most part with therapy. Continue PT/OT. (13) DVT prophylaxis: Code(s): Z29.9 - Encounter for prophylactic measures, unspecified Status: Acute Assessment and Plan: Susanarelto Subjective Date/time seen: 12/20/21 09:56 Interval history: 71-year-old woman with Atrial fibrillation of unknown chronicity. ECG s
[2021-12-20 09:59] LABS: Glucose Point of Care 149 mg/dl (65-105)
--- NOTE | 2021-12-20 10:09 | PM.PNCARD ---
Progress Note: A&P Assessment and Plan (1) Atrial fibrillation with RVR: Code(s): I48.91 - Unspecified atrial fibrillation Status: Acute Assessment and Plan: She has a chads Vasc score of at least 6. Anticoagulation is warranted but her creatinine clearance is less than 50. Proper dose of Xarelto at this point is 15 mg daily. If her kidney function does improve, Xarelto dose should be adjusted accordingly. Her rate is better but still elevated. Would like to transition her to the CHF/cardiomyopathy form of metoprolol. Will increase metoprolol succinate at 100 mg p.o. daily. She will eventually cardioverted plus minus ANAYELI depending on timing of need. If her heart rate is still difficult to control despite up titrating medications, ANAYELI cardioversion to be performed as an inpatient. Her ejection fraction is very poor though and propofol should be avoided since it is myocardial depressant (2) Hypertension associated with diabetes: Code(s): E11.59 - Type 2 diabetes mellitus with other circulatory complications; I15.2 - Hypertension secondary to endocrine disorders Status: Acute Assessment and Plan: Continue Entresto, metoprolol. (3) Hyperlipidemia associated with type 2 diabetes mellitus: Code(s): E11.69 - Type 2 diabetes mellitus with other specified complication; E78.5 - Hyperlipidemia, unspecified Status: Acute Assessment and Plan: I am uncertain as to why she is not on a statin but it would be recommended (4) Hypokalemia: Code(s): E87.6 - Hypokalemia Status: Acute Assessment and Plan: Continue potassium supplementation (5) Elevated troponin: Code(s): R77.8 - Other specified abnormalities of plasma proteins Status: Acute Assessment and Plan: Not related to ACS. (6) Acute kidney injury: Code(s): N17.9 - Acute kidney failure, unspecified Status: Acute Assessment and Plan: Likely secondary to reduced renal perfusion from her severe cardiomyopathy Subjective Date/time seen: 12/20/21 10:09 Interval history: 71-year-old woman with Atrial fibrillation of unknown chronicity. ECG several months ago did demonstrate sinus rhythm. She was brought to the hospital after being found on the floor her apartment for an unknown amount of time covered in feces. Follow-up note 12/19/2021: Denies any chest pain or shortness of breath. Heart rate is better although still mildly elevated. Follow-up note 12/20/2021: Resting comfortably. No chest pain or shortness of breath. Heart rate still elevated Review of Systems Review of Systems: All systems reviewed & are unremarkable except as noted in HPI and below Constitutional: Constitutional: Denies fatigue, Denies headache(s) and Denies weakness Eyes: Eyes: Denies blurry vision ENT: Reports Normal hearing present, Denies headache(s) and Denies neck pain Cardiovascular: Cardiovascular: Denies chest pain and Denies dyspnea Respiratory: Respiratory: Denies dyspnea Gastrointestinal: Gastrointestinal: Denies abdominal pain Genitourinary: Genitourinary: Denies hematuria and Denies flank pain Musculoskeletal: Musculoskeletal: Denies back pain and Denies neck pain Integumentary/Breasts: Skin/Breast: Denies dry skin Neurologic: Reports Normal hearing present, Denies headache(s) and Denies weakness Psychiatric: Psychiatric: Denies anxiety Endocrine: Endocrine: Denies fatigue Hematologic/Lymphatic: Hematologic/Lymphatic: Denies easy bleeding Allergic/Immunologic: Allergic/Immunologic: Denies GI upset with certain foods Exam Narrative: Patient is awake and in. Appears unkempt but stated age Const: General: comfortable and no acute distress Other: Obese white female appears to be fairly comfortable in bed head of the bed elevated about 30?. HENMT: General nose exam: Normal nares present Mouth: Yes moist mucous membranes Eyes: Sclera: sclerae normal Pupils:
[2021-12-20 12:56] LABS: Glucose Point of Care 168 mg/dl (65-105)
--- NOTE | 2021-12-20 13:09 | PCOTNOTE ---
Attempted to see patient for a second time this PM to complete skilled OT session. Patient refused all participation in treatment stating, I don't want any of that. I just want to be left alone, it's Tuesday. OT treatment session not completed this date. Will continue per OT POC accordingly.
[2021-12-20 17:08] LABS: Glucose Point of Care 167 mg/dl (65-105)
[2021-12-20] MEDS: RIVAROXABAN 15 MG TABLET PO (17:30)
[2021-12-20] MEDS: INSULIN GLARGINE (*BKC) 100 UNITS/ML 15 UNITS SUB-Q (21:25)
[2021-12-20 21:45] LABS: Glucose Point of Care 146 mg/dl (65-105)
[2021-12-20] MEDS: METOPROLOL TARTRATE INJ 5 MG/5 ML VIAL IV PUSH (22:44)
[2021-12-21] VITALS (20 sets, daily range): BP systolic 91–129; BP diastolic 61–89; PULSE 100–167; RESP 22–24; TEMP 36.3–36.8; O2SAT 95–98
[2021-12-21] MEDS: METOPROLOL TARTRATE INJ 5 MG/5 ML VIAL IV PUSH ×4 (05:47→23:50)
[2021-12-21 06:07] LABS: Anion Gap 8 mmol/L (8-16); Blood Urea Nitrogen 45 mg/dL (7-17); Calcium 8.2 mg/dL (8.4-10.2); Carbon Dioxide 25 mmol/L (22-30); Chloride 95 mmol/L (98-107); Estimated CRCL calculation 40 ml/min; Estimated Glomerular Filt Rate 37; Glucose 114 mg/dL (65-110); Potassium 4.4 mmol/L (3.4-5.0); Sodium 128 mmol/L (137-145)
[2021-12-21] MEDS: INSULIN GLARGINE (*BKC) 100 UNITS/ML 25 UNITS SUB-Q (08:22)
[2021-12-21] MEDS: GABAPENTIN 300 MG CAPSULE PO ×2 (08:23→17:13)
[2021-12-21] MEDS: CYANOCOBALAMIN 1,000 MCG TABLET 1000 MCG PO (08:23)
[2021-12-21] MEDS: MAGNESIUM OXIDE 400 MG TABLET PO (08:23)
[2021-12-21] MEDS: POTASSIUM CHLORIDE 20 MEQ TABLET.ER PO (08:23)
[2021-12-21] MEDS: CITALOPRAM HYDROBROMIDE 20 MG TABLET PO (08:23)
[2021-12-21] MEDS: SACUBITRIL/VALSARTAN 24-26 MG TABLET 1 TAB PO ×2 (08:23→21:04)
[2021-12-21] MEDS: TOLNAFTATE 1% POWDER 45 GM BTL 1 APPLIC TOPICAL ×4 (08:24→21:08)
[2021-12-21] MEDS: METOPROLOL SUCCINATE EXT REL 100 MG TABCR PO (08:24)
[2021-12-21 09:17] LABS: Glucose Point of Care 89 mg/dl (65-105)
--- NOTE | 2021-12-21 10:57 | PM.PNCARD ---
Progress Note: A&P Assessment and Plan (1) Atrial fibrillation with RVR: Code(s): I48.91 - Unspecified atrial fibrillation Status: Acute Assessment and Plan: Unknown chronicity, she does not have any known history of this. She has a CHADSVasc score of at least 6. Anticoagulation is warranted but her creatinine clearance is less than 50. Proper dose of Xarelto at this point is 15 mg daily. If her kidney function does improve, Xarelto dose should be adjusted accordingly. Her rate is still elevated, in the 150's 170's. Despite this, she is completely asymptomatic. I think the best option for her at this point would be ANAYELI cardioversion - will tentatively plan for tomorrow. May need support with anesthesia due to her cardiomyopathy and some hypotension. (2) Hypertension associated with diabetes: Code(s): E11.59 - Type 2 diabetes mellitus with other circulatory complications; I15.2 - Hypertension secondary to endocrine disorders Status: Acute Assessment and Plan: Continue Entresto, metoprolol. (3) Hyperlipidemia associated with type 2 diabetes mellitus: Code(s): E11.69 - Type 2 diabetes mellitus with other specified complication; E78.5 - Hyperlipidemia, unspecified Status: Acute Assessment and Plan: I am uncertain as to why she is not on a statin but it would be recommended (4) Hypokalemia: Code(s): E87.6 - Hypokalemia Status: Acute Assessment and Plan: Continue potassium supplementation (5) Elevated troponin: Code(s): R77.8 - Other specified abnormalities of plasma proteins Status: Acute Assessment and Plan: Not related to ACS. (6) Acute kidney injury: Code(s): N17.9 - Acute kidney failure, unspecified Status: Acute Assessment and Plan: Likely secondary to reduced renal perfusion from her severe cardiomyopathy Subjective Date/time seen: 12/21/21 10:57 Interval history: 71-year-old woman with Atrial fibrillation of unknown chronicity. ECG several months ago did demonstrate sinus rhythm. She was brought to the hospital after being found on the floor her apartment for an unknown amount of time covered in feces. Follow-up note 12/19/2021: Denies any chest pain or shortness of breath. Heart rate is better although still mildly elevated. Follow-up note 12/20/2021: Resting comfortably. No chest pain or shortness of breath. Heart rate still elevated Follow up note 12/21/2021: She feels ok today, no complaints. She is irritated that she has a sitter. Denies chest pain, palpitations, shortness of breath. Review of Systems Review of Systems: All systems reviewed & are unremarkable except as noted in HPI and below Constitutional: Constitutional: Denies fatigue, Denies headache(s) and Denies weakness Eyes: Eyes: Denies blurry vision ENT: Reports Normal hearing present, Denies headache(s) and Denies neck pain Cardiovascular: Cardiovascular: Denies chest pain and Denies dyspnea Respiratory: Respiratory: Denies dyspnea Gastrointestinal: Gastrointestinal: Denies abdominal pain Genitourinary: Genitourinary: Denies hematuria and Denies flank pain Musculoskeletal: Musculoskeletal: Denies back pain and Denies neck pain Integumentary/Breasts: Skin/Breast: Denies dry skin Neurologic: Reports Normal hearing present, Denies headache(s) and Denies weakness Psychiatric: Psychiatric: Denies anxiety Endocrine: Endocrine: Denies fatigue Hematologic/Lymphatic: Hematologic/Lymphatic: Denies easy bleeding Allergic/Immunologic: Allergic/Immunologic: Denies GI upset with certain foods Exam Const: General: comfortable and no acute distress HENMT: General nose exam: Normal nares present Mouth: Yes moist mucous membranes Eyes: Sclera: sclerae normal Pupils: Equal, round and reactive pupils present Neck: Neck: supple and no JVD Resp: Effort & Inspection: normal respiratory effort Auscultation: clear
[2021-12-21 13:13] LABS: Glucose Point of Care 135 mg/dl (65-105)
--- NOTE | 2021-12-21 15:05 | PM.IMPN ---
Progress Note: A&P Assessment and Plan (1) Atrial fibrillation with RVR: Code(s): I48.91 - Unspecified atrial fibrillation Status: Acute Assessment and Plan: Patient brought in to the ED by EMS for buttock pain and found to have AFib. No hx of AFib. She is asymptomatic so unclear of duration of AFib. [id number]. Initially she was treated with diltiazem bolus and drip at 15 milligrams/hour. She was admitted to the IMU. She was transitioned to metoprolol tartrate 50 mg Q12Hrs that was switched to metoprolol succinate 75mg daily. HR still poorly controlled so Metoprolol increased to 100mg daily. Has been requiring intermittent doses of metoprolol IV for better rate control. Echo showing severe LAE. Consideration for CV in the morning. (2) CHF (congestive heart failure): Qualifiers: Heart failure chronicity: acute Heart failure type: unspecified Qualified Code(s): I50.9 - Heart failure, unspecified Code(s): I50.9 - Heart failure, unspecified Status: Acute Assessment and Plan: Patient with acute on chronic systolic and diastolic CHF. BNP 14K. CXR showing airspace opacities in right lung, consistent with pneumonia versus asymmetric pulmonary edema; repeat CXR showing no change. Not requiring O2. She was treated with Lasix IV but that has stopped. Creatinine was elevated but contineus to improve. Echo showing EF 15-20% with abnormal diastolic dysfunction, biatrial enlargement (left is severe) and moderate MR. Continue Metoprolol, Entresto. lasix held due to hyponatremia. Continue to follow. (3) Hyponatremia: Code(s): E87.1 - Hypo-osmolality and hyponatremia Status: Acute Assessment and Plan: Sodium at admission 136. Sodium 130 on 12/19 so diuretics discontinued. Fractional excretion of urea 37.2% (borderline for volume depletion). Na 128 today. Continue to monitor while holding furosemide (4) Lung infiltrate: Code(s): R91.8 - Other nonspecific abnormal finding of lung field Status: Acute Assessment and Plan: Suspect CXR findings due to congestive heart failure. COVID negative. Cannot exclude PNA but no cough. WBC 13K on admission but normal now. She was started on Zosyn and Vanco. Blood Cultures NGTD. Repeat CXR showing no change. Continue abx for now. Repeat CXR in the morning (5) Elevated troponin: Code(s): R77.8 - Other specified abnormalities of plasma proteins Status: Acute Assessment and Plan: Trop peaked at 0.040 felt related to above and possibly due to the HIRAM. No ACS. (6) Acute kidney injury: Code(s): N17.9 - Acute kidney failure, unspecified Status: Acute Assessment and Plan: Patient with normal baseline renal function. Cr 2.1 on admisison. Renal ultrasound showing no acute process. Started on Lasix IV with improvement in the Cr. lasix has been stopped and Cr down to 1.4. Follow (7) Diabetes mellitus with hyperglycemia: Code(s): E11.65 - Type 2 diabetes mellitus with hyperglycemia Status: Acute Assessment and Plan: A1c 7.3 in October. The patient's blood glucose was reviewed on 12/21 Glucose remains well controlled. Continue AccuCheks covering with sliding scale. Hypoglycemia protocol available as needed. Continue current medications with Lantus. Metformin on hold due to HIRAM. Hold Lantus tonight since NPO tomorrow. (8) Dementia: Code(s): F03.90 - Unspecified dementia without behavioral disturbance Status: Acute Assessment and Plan: Apparently new onset. Brain MR completed and unrevealing. She is only mildly confused at times. TSH normal but B12 243 in October. MMA pending. Daily IM B12 replacement x3 days. Continue oral B12 as well. (9) Hypertension: Code(s): I10 - Essential (primary) hypertension Status: Chronic Assessment and Plan: Patient's blood pressure was reviewed on 12/21 Blood pressure remains well control
[2021-12-21] MEDS: RIVAROXABAN 15 MG TABLET PO (17:13)
[2021-12-21 17:18] LABS: Glucose Point of Care 156 mg/dl (65-105)
[2021-12-21 17:45] LABS: Methylmalonic Acid 442 nmol/L (87-318)
[2021-12-21 21:08] LABS: Glucose Point of Care 184 mg/dl (65-105)
[2021-12-22] VITALS (34 sets, daily range): BP systolic 75–132; BP diastolic 41–86; PULSE 66–150; RESP 12–31; TEMP 36.1–36.6; O2SAT 93–98
--- NOTE | 2021-12-22 | ECG_ITS ---
Measurements Intervals [place] Rate: 108 P: 76 AR: 172 QRS: -12 QRSD: 89 T: 139 QT: 426 QTc: 573 Interpretive Statements SINUS RHYTHM CHANGES TO ECTOPIC ATRIAL TACHYCARDIA ATRIAL PREMATURE COMPLEXES DELAYED PRECORDIAL R/S TRANSITION LOW QRS VOLTAGE IN PRECORDIAL LEADS BORDERLINE T WAVE ABNORMALITY- ANTEROLAT/HIGH LAT LEADS BASELINE WANDER- V4-V6 ABNORMAL ECG Electronically Signed On 12-22-2021 16:55:06 APPLIQUE SEWER by Franck Quesada D.O.
[2021-12-22] MEDS: FUROSEMIDE INJ 40 MG/4 ML VIAL IV PUSH (02:54)
[2021-12-22] MEDS: IPRATROPIUM BR 0.02% INH SOLN 0.5 MG/2.5 ML VIAL INHALATION ×3 (02:55→21:09)
[2021-12-22] MEDS: methylPREDNISolone SOD SUCC 125 MG VIAL IV PUSH (02:56)
[2021-12-22 05:50] LABS: Basophils Absolute Auto 0.1 K/mm3 (0.0-0.1); Basophils Percent Auto 0.8 % (0.2-1.2); Eosinophils Absolute Auto 0.1 K/mm3 (0-0.3); Hematocrit 42.8 % (37.0-47.0); Hemoglobin 14.2 g/dL (12.0-15.0); Immature Granulocyte Absolute 0.05 K/mm3 (0.00-0.031); Immature Granulocyte Percent A 0.8 % (0-0.5); Lymphocytes Absolute Auto 0.87 K/mm3 (0.9-3.2); Lymphocytes Percent Auto 13.8 % (18.3-44.2); Mean Corpuscular HGB Conc 33.2 g/dl (32-36); Mean Corpuscular Hemoglobin 30.2 pg (26-34); Mean Corpuscular Volume 91.1 fl (80-100); Monocytes Absolute Auto 0.6 K/mm3 (0.1-0.6); Neutrophils Absolute Auto 4.7 K/mm3 (1.3-6.7); Neutrophils Percent Auto 74.6 % (45.5-73.1); Platelet Count Result 217 k/mm3 (150-375); Red Cell Distribution Width 18.9 % (11.5-14.5); White Blood Count 6.3 K/mm3 (4.5-10.0)
[2021-12-22 05:54] LABS: Potassium 4.5 mmol/L (3.4-5.0)
[2021-12-22 06:02] LABS: Albumin Level 3.4 g/dL (3.5-5.1); Anion Gap 9 mmol/L (8-16); Blood Urea Nitrogen 43 mg/dL (7-17); Calcium 8.4 mg/dL (8.4-10.2); Carbon Dioxide 25 mmol/L (22-30); Chloride 90 mmol/L (98-107); Estimated CRCL calculation 33 ml/min; Estimated Glomerular Filt Rate 29; Glucose 101 mg/dL (65-110); Magnesium 1.6 mg/dL (1.6-2.3); Phosphorus 3.8 mg/dL (2.5-4.5); Sodium 124 mmol/L (137-145)
[2021-12-22] MEDS: CITALOPRAM HYDROBROMIDE 20 MG TABLET PO (07:54)
[2021-12-22] MEDS: MAGNESIUM SULF 2 GM/WATER 50ML 2 GM/50 ML BAG IVPB (07:54)
[2021-12-22] MEDS: SACUBITRIL/VALSARTAN 24-26 MG TABLET 1 TAB PO ×2 (07:54→21:39)
[2021-12-22] MEDS: GABAPENTIN 300 MG CAPSULE PO ×2 (07:54→16:12)
[2021-12-22] MEDS: MAGNESIUM OXIDE 400 MG TABLET PO (07:54)
[2021-12-22] MEDS: CYANOCOBALAMIN 1,000 MCG TABLET 1000 MCG PO (07:55)
[2021-12-22] MEDS: TOLNAFTATE 1% POWDER 45 GM BTL 1 APPLIC TOPICAL ×4 (07:55→21:38)
[2021-12-22] MEDS: METOPROLOL SUCCINATE EXT REL 100 MG TABCR PO (07:55)
[2021-12-22 08:04] LABS: Glucose Point of Care 127 mg/dl (65-105)
--- NOTE | 2021-12-22 08:20 | PM.IMPN ---
Progress Note: A&P Assessment and Plan (1) Atrial fibrillation with RVR: Code(s): I48.91 - Unspecified atrial fibrillation Status: Acute Assessment and Plan: Patient brought in to the ED by EMS for buttock pain and found to have AFib. No hx of AFib. She is asymptomatic so unclear of duration of AFib. [id number] 7. Initially she was treated with diltiazem bolus and drip at 15mg/hr. She was admitted to the IMU. She was transitioned to metoprolol tartrate 50 mg Q12Hrs that was switched to metoprolol succinate 75mg daily. HR still poorly controlled so Metoprolol increased to 100mg daily. Has been requiring intermittent doses of metoprolol IV for better rate control. Echo showing severe LAE. HR still poorly controlled. CV planned for today. (2) CHF (congestive heart failure): Qualifiers: Heart failure chronicity: acute Heart failure type: unspecified Qualified Code(s): I50.9 - Heart failure, unspecified Code(s): I50.9 - Heart failure, unspecified Status: Acute Assessment and Plan: Patient with acute on chronic systolic and diastolic CHF. BNP 14K. CXR showing airspace opacities in right lung, consistent with pneumonia versus asymmetric pulmonary edema. Not requiring O2. She was treated with Lasix IV but that has stopped. Echo showing EF 15-20% with abnormal diastolic dysfunction, biatrial enlargement (left is severe) and moderate MR. Continue Metoprolol, Entresto. Lasix held due to hyponatremia and now worsening renal function. Repeat CXR reviewed showing mild improvement. Continue to follow. Check apnea link (3) Hyponatremia: Code(s): E87.1 - Hypo-osmolality and hyponatremia Status: Acute Assessment and Plan: Sodium at admission 136. Sodium 130 on 12/19 so diuretics discontinued. Fractional excretion of urea 37.2% (borderline for volume depletion). Na 124 today. Continue to hold furosemide. Check urine Na. May be related to poor renal perfusion from the low EF and tachycardia. Add NaCl tabs. (4) Lung infiltrate: Code(s): R91.8 - Other nonspecific abnormal finding of lung field Status: Acute Assessment and Plan: Suspect CXR findings due to congestive heart failure. COVID negative. Cannot exclude PNA but no cough. WBC 13K on admission but normal now. She was started on Zosyn and Vanco. Blood Cultures negative. Repeat CXR showing some benefit. Continue abx to complete a 7 day treatment. She did have respiratory difficulties overnight requiring nebs and Solu-Medrol once. Follow (5) Elevated troponin: Code(s): R77.8 - Other specified abnormalities of plasma proteins Status: Acute Assessment and Plan: Trop peaked at 0.040 felt related to above and possibly due to the HIRAM. No ACS. (6) Acute kidney injury: Code(s): N17.9 - Acute kidney failure, unspecified Status: Acute Assessment and Plan: Patient with normal baseline renal function. Cr 2.1 on admisison. Renal ultrasound showing no acute process. Started on Lasix IV with improvement in the Cr. Lasix has been stopped. Cr was down to 1.4 but back up to 1.7 today felet related to poor renal perfusion with low EF and tachycardia. Follow (7) Diabetes mellitus with hyperglycemia: Code(s): E11.65 - Type 2 diabetes mellitus with hyperglycemia Status: Acute Assessment and Plan: A1c 7.3 in October. The patient's blood glucose was reviewed on 12/22 Glucose remains well controlled. Continue AccuCheks covering with sliding scale. Hypoglycemia protocol available as needed. Lantus on hold due to being NPO. Metformin on hold due to HIRAM. (8) Dementia: Code(s): F03.90 - Unspecified dementia without behavioral disturbance Status: Acute Assessment and Plan: Apparently new onset. She is oriented but with odd affect. Brain MR completed and unrevealing. She is only mildly confused at times. TSH normal but B12 243 in October. MMA 442 c
[2021-12-22] MEDS: METOPROLOL TARTRATE INJ 5 MG/5 ML VIAL IV PUSH (09:52)
--- NOTE | 2021-12-22 10:03 | PC.NURSE ---
Pt signed consent for ANAYELI on 12/21/21. Pt has intermittent confusion; correspondence review clerk requesting that patient's POA/next of kin also consent to procedure. Nelly Croft, daughter, contacted by this RN and telephone consent between this RN and second RN obtained on 12/22/21 at 0956. Consent placed on chart
[2021-12-22 12:36] LABS: Glucose Point of Care 136 mg/dl (65-105)
[2021-12-22 12:36] LABS: Creatinine Urine 43.2 mg/dL; Sodium Urine Random 20 meq/L
--- NOTE | 2021-12-22 12:51 | PC.NURSE ---
Pt transfered to GI Lab for ANAYELI w/ cardioversion via stretcher
--- NOTE | 2021-12-22 12:56 | WPDANESEPPF ---
Anes - Initial Pre Proc Eval Procedure: Operation Date: 12/22/21 13:00 Proposed Procedures p Trans Esophageal Echo - Oli Moralez MD s Electrical Cardioversion - Oli Moralez MD Date/Time: 12/22/21 12:56 Surgeon: Yobany Tapia MD Pre Op Diagnosis: Atrial fibrillation RVR, CHF Patient Data Age: 71 Gender: F Height: 1.68 m Weight: 108.9 kg Last Vital Signs Temp 96.9 F L 12/22/21 12:00 Pulse 139 H 12/22/21 12:00 Resp 20 12/22/21 12:00 BP 124/76 12/22/21 12:00 Pulse Ox 94 12/22/21 12:00 Allergies Allergy/AdvReac Type Severity Reaction Status Date / Time Penicillins Allergy Mild rash Verified 09/14/21 11:24 Home Medications Medication Instructions Recorded Confirmed Type amlodipine [Norvasc] 10 mg PO DAILY #30 tablet 09/06/21 12/17/21 Rx atenolol 100 mg tablet 100 mg PO DAILY #90 tablet 09/07/21 12/17/21 Rx lisinopril 40 mg tablet 40 mg PO BID #180 tablet 09/07/21 12/17/21 Rx metformin 1,000 mg tablet 1,000 mg PO BID #180 tablet 09/07/21 12/17/21 Rx blood sugar diagnostic #100 ea 09/22/21 12/17/21 Rx insulin glargine 100 unit/mL See Rx Instructions SUB-Q BID #40 09/27/21 12/17/21 Rx subcutaneous solution ml potassium chloride 20 mEq 20 meq PO BID #60 tablet 10/09/21 12/17/21 Rx tablet,extended release citalopram 20 mg tablet 20 mg PO DAILY #90 tablet 11/25/21 12/17/21 Rx gabapentin 300 mg PO BID 12/17/21 12/17/21 History Laboratory Tests 12/17/21 12/21/21 12/21/21 15:01 12:05 16:08 WBC RBC Hgb Hct MCV MCH MCHC RDW Plt Count MPV Immature Gran % (Auto) Neut % (Auto) Lymph % (Auto) [place] % (Auto) Eos % (Auto) Baso % (Auto) Lymph # (Auto) [place] # (Auto) Eos # (Auto) Baso # (Auto) Abs Immat Gran (auto) Absolute Neuts (auto) Absolute Nucleated RBC Nucleated RBC % Sodium Potassium Chloride Carbon Dioxide Anion Gap BUN Creatinine Estim Creat Clear Calc Estimated GFR Glucose POC Capillary Glucose 135 mg/dl H mg/dl 156 mg/dl H mg/dl (65-105) (65-105) Calcium Phosphorus Magnesium Albumin Methylmalonic Acid 442 nmol/L H nmol/L (87-318) Ur Random Sodium Urine Creatinine 12/21/21 12/22/21 12/22/21 20:12 04:48 04:48 WBC 6.3 K/mm3 K/mm3 (4.5-10.0) RBC 4.70 M/mm3 M/mm3 (4.2-5.4) Hgb 14.2 g/dL g/dL (12.0-15.0) Hct 42.8 % % (37.0-47.0) MCV 91.1 fl fl (80-100) MCH 30.2 pg pg (26-34) MCHC 33.2 g/dl g/dl (32-36) RDW 18.9 % H % (11.5-14.5) Plt Count 217 k/mm3 k/mm3 (150-375) MPV 12.0 fl H fl (7.4-10.4) Immature Gran % (Auto) 0.8 % H % (0-0.5) Neut % (Auto) 74.6 % H % (45.5-73.1) Lymph % (Auto) 13.8 % L % (18.3-44.2) [place] % (Auto) 9.0 % H % (2.6-8.5) Eos % (Auto) 1.0 % % (0-4.4) Baso % (Auto) 0.8 % % (0.2-1.2) Lymph # (Auto) 0.87 K/mm3 L K/mm3 (0.9-3.2) [place] # (Auto) 0.6 K/mm3 K/mm3 (0.1-0.6) Eos # (Auto) 0.1 K/mm3 K/mm3 (0-0.3) Baso # (Auto) 0.1 K/mm3 K/mm3 (0.0-0.1) Abs Immat Gran (auto) 0.05 K/mm3 H K/mm3 (0.00-0.031) Absolute Neuts (auto) 4.7 K/mm3 K/mm3 (1.3-6.7) Absolute Nucleated RBC 0.0 K/mm3 K/mm3 (0.0-0.012) Nucleated RBC % 0.0 % % (0.0-0.2) Sodium 124 mmol/L L mmol/L (137-145) Potassium 4.5 mmol/L mmol/L (3.4-5.0) Chloride 90 mmol/L L mmol/L (
--- NOTE | 2021-12-22 13:29 | PCPTNOTE ---
The patient treatment was not able to be completed on 12/22/2021 due to patient out of room. Will plan to continue treatment per plan of care.
--- NOTE | 2021-12-22 14:14 | WPDTECDV ---
ANAYELI with Cardioversion Date of procedure: 12/22/21 Procedure Type: Transesophageal echocardiogram guided elective electrical cardioversion Diagnosis: Refractory atrial fibrillation with rapid ventricular response, cardiomyopathy Indications: Refractory atrial fibrillation with rapid ventricular response, cardiomyopathy Description of Procedure: Brief history present illness: Patient is a 71-year-old female with a past medical history significant for morbid obesity, dementia, new diagnosis atrial fibrillation chronicity unknown, new severe LV systolic dysfunction EF 10-15%, hypertension with diabetes mellitus, hyperlipidemia with diabetes mellitus, acute kidney injury started on systemic anticoagulation and referred for transesophageal echocardiogram-guided elective electrical cardioversion in attempt to restore sinus rhythm. Procedure in detail: After verbal and written informed consent was obtained the patient risks, benefits, and alternatives explained in detail the patient agreed to proceed with the plan of care as outlined above. Patient was evaluated at bedside in the gastroenterology procedure room. On examination, neck was obese, supple with normal range of motion, no restrictions to opening of the oral cavity, jaw angle and posterior hypopharynx was clear. Lungs werediminished. Patient was placed in appropriate 30 to 45 degree angle in a supine, slight left lateral decubitus position. Patient was monitored throughout the study with telemetry, oxygen saturation, end-tidal CO2 monitoring, blood pressure, heart rate, and respirations. Anterior and posterior defibrillator pads placed in the appropriate positions. Once adequate sedation administered by Anesthesiology and the oral bite block placed, through the oral bite block, the transesophageal echocardiogram probe was advanced into the posterior hypopharynx and into the esophagus easily and without complication. Multiple, multiplanar echocardiographic images were obtained in multiple standard re-projections. Pulsed wave, continuous-wave, and color-flow Doppler were utilized in conjunction with this study. At the conclusion of the study, the transesophageal echocardiogram probe was removed easily and without complication. Patient tolerated the procedure well without difficulty. Patient was in atrial fibrillation throughout the study. Sedation: Anesthesia administration: Patient denied previous intolerance or complications with anesthesia/sedation. Please see Anesthesiology documentation for details regarding sedation administration and protocol. Findings: FINDINGS: LEFT VENTRICLE: Moderate enlargement left ventricular cavity severe LV systolic dysfunction EF visually estimated at 15-20% mild concentric left ventricular hypertrophy. RIGHT VENTRICLE: Mildly enlarged with mild global hypokinesis. LEFT ATRIUM: Severe enlargement. No thrombus vegetation. RIGHT ATRIUM: At least moderate enlargement. Incidental notation of thin mobile filamentous echodensity consistent with remnant Eustachian valve, normal variant. INTERATRIAL SEPTUM: Interatrial septum is anatomically normal without evidence of shunt with color-flow Doppler. MITRAL VALVE: Mitral valve is anatomically normal with preserved leaflet excursion and several small regurgitant jets overall moderate mitral regurgitation. AORTIC VALVE: The aortic valve was an anatomically normal 3 leaflet structure with normal leaflet excursion with trivial regurgitation. TRICUSPID VALVE: The tricuspid valve is anatomically normal with normal leaflet excursion with [id number] regurgitation identified. No mobile elements identified. PULMONIC VALVE: Pulmonic valve was not well visualized. LEFT ATRIAL APPENDAGE: Anatomically normal structure with prominent pectinate muscles without thrombus or vegetation identified. Left atrial appendage velocities averaged approximately 30-40 centimeters/second. LEFT UPPER PULMONARY VEIN: Left upper pulmonar
--- NOTE | 2021-12-22 14:36 | PC.NURSE ---
Pt returned from GI lab, successful ANAYELI performed.
--- NOTE | 2021-12-22 15:06 | ECG_ITS ---
Measurements Intervals [place] Rate: 84 P: 69 VA: 191 QRS: -11 QRSD: 92 T: 134 QT: 393 QTc: 466 Interpretive Statements SINUS RHYTHM LOW QRS VOLTAGE IN PRECORDIAL LEADS BORDERLINE T WAVE ABNORMALITY- ANNTEROLAT/HIGH LAT LEADS BORDERLINE ECG Electronically Signed On 12-22-2021 16:19:34 RECOVERY AGENT by Franck Quesada D.O.
--- NOTE | 2021-12-22 15:24 | ECG_ITS ---
Measurements Intervals [place] Rate: 75 P: 80 MN: 179 QRS: -10 QRSD: 94 T: 136 QT: 428 QTc: 480 Interpretive Statements SINUS RHYTHM ATRIAL PREMATURE COMPLEX BORDERLINE T WAVE ABNORMALITY- ANTEROLAT/HIGH LAT LEADS BORDERLINE ECG Electronically Signed On 12-22-2021 16:20:00 QUALITY COMPLIANCE CONSULTANT by Franck Quesada D.O.
[2021-12-22] MEDS: AMIODARONE 360 MG/D5W 200 ML 360 MG/200 ML BAG 33.33 MG IV CONT (16:11)
[2021-12-22] MEDS: SODIUM CHLORIDE 500 MG TABLET PO (16:12)
[2021-12-22] MEDS: RIVAROXABAN 15 MG TABLET PO (16:12)
--- NOTE | 2021-12-22 16:54 | PCRCNOTE ---
Window of time for administration has passed. See next scheduled administration.
[2021-12-22 16:55] LABS: Glucose Point of Care 116 mg/dl (65-105)
[2021-12-22] MEDS: AMIODARONE HCL 200 MG TABLET 400 MG PO ×2 (18:02→21:39)
[2021-12-22 20:57] LABS: Glucose Point of Care 205 mg/dl (65-105)
--- NOTE | 2021-12-22 22:36 | PCRCNOTE ---
pt is very confused and will not keep treatments or apnea link on.
[2021-12-23] VITALS (22 sets, daily range): BP systolic 95–130; BP diastolic 52–94; PULSE 62–101; RESP 16–22; TEMP 36.1–36.6; O2SAT 95–99
[2021-12-23] MEDS: IPRATROPIUM BR 0.02% INH SOLN 0.5 MG/2.5 ML VIAL INHALATION ×4 (00:06→13:57)
[2021-12-23 05:17] LABS: Hemoglobin 12.7 g/dL (12.0-15.0); Mean Corpuscular HGB Conc 33.4 g/dl (32-36); Mean Corpuscular Hemoglobin 29.7 pg (26-34); Mean Platelet Volume 11.7 fl (7.4-10.4); Platelet Count Result 167 k/mm3 (150-375); Red Blood Count 4.27 M/mm3 (4.2-5.4); Red Cell Distribution Width 18.4 % (11.5-14.5); White Blood Count 5.3 K/mm3 (4.5-10.0)
[2021-12-23] MEDS: AMIODARONE HCL 200 MG TABLET 400 MG PO ×3 (05:27→22:37)
[2021-12-23 05:36] LABS: Albumin Level 2.9 g/dL (3.5-5.1); Anion Gap 8 mmol/L (8-16); Blood Urea Nitrogen 49 mg/dL (7-17); Calcium 8.4 mg/dL (8.4-10.2); Carbon Dioxide 23 mmol/L (22-30); Chloride 94 mmol/L (98-107); Estimated CRCL calculation 33 ml/min; Estimated Glomerular Filt Rate 28; Glucose 174 mg/dL (65-110); Phosphorus 5.9 mg/dL (2.5-4.5); Potassium 4.6 mmol/L (3.4-5.0); Sodium 125 mmol/L (137-145)
[2021-12-23 08:28] LABS: Glucose Point of Care 226 mg/dl (65-105)
[2021-12-23] MEDS: INSULIN ASPART (*BKC) 100 UNITS/ML SUB-Q ×3 (08:36→17:32)
[2021-12-23] MEDS: INSULIN GLARGINE (*BKC) 100 UNITS/ML 15 UNITS SUB-Q ×2 (08:36→20:12)
[2021-12-23] MEDS: SACUBITRIL/VALSARTAN 24-26 MG TABLET 1 TAB PO ×2 (08:37→20:34)
[2021-12-23] MEDS: MAGNESIUM OXIDE 400 MG TABLET PO (08:37)
[2021-12-23] MEDS: SODIUM CHLORIDE 500 MG TABLET PO ×2 (08:37→17:30)
[2021-12-23] MEDS: GABAPENTIN 300 MG CAPSULE PO ×2 (08:37→17:30)
[2021-12-23] MEDS: METOPROLOL SUCCINATE EXT REL 50 MG TABCR PO (08:37)
[2021-12-23] MEDS: TOLNAFTATE 1% POWDER 45 GM BTL 1 APPLIC TOPICAL ×4 (08:38→20:35)
[2021-12-23] MEDS: CYANOCOBALAMIN 1,000 MCG TABLET 1000 MCG PO (08:38)
--- NOTE | 2021-12-23 08:49 | PCNWS ---
Weekly nutritional screen. Patient screened in for 7 day length of stay. Patient is tolerating current diet with adequate intake. No weight loss reported. No nutritional needs at this time.
--- NOTE | 2021-12-23 10:36 | PM.PNCARD ---
Progress Note: A&P Assessment and Plan (1) Atrial fibrillation with RVR: Code(s): I48.91 - Unspecified atrial fibrillation Status: Acute Assessment and Plan: Maintaining SR s/p ANAYELI/CV 12/22/21 on Amiodarone and Toprol XL which was reduced to 50mg daily. Continue Xarelto 15mg qhs. Unknown chronicity, she does not have any known history of this. CHADSVasc score of at least 6. Discussed at length the importance of compliance with all her medications with regards to heart failure, cardiomyopathy, reduction risk for recurrence of atrial fibrillation, embolic stroke risk associated with atrial fibrillation and the need to stay on anticoagulation without interruption. We also discussed the importance of ambulating with caution, physical therapy and following directions and recommendations reduce fall risk for bleeding complications which could be catastrophic due to head injury for example. Patient verbalized understanding and states that she would just stop all her medications on her own. I strongly emphasized the importance of remaining compliant as well given severe LV dysfunction possibly tachycardia induced CM with assoc risk for SCD VT/VF. Patient must demonstrate compliance to even be considered a candidate for LifeVest and eventually ICD for that matter if EF remains less than 35%. This was explained to the patient's daughter yesterday noted. Amiodarone toxicity risks explained to the daughter yesterday in great detail and to the patient today. Continue amiodarone 400 mg q.8 hours through tomorrow then reduce to 400 mg b.i.d. for 1 week then 400 mg daily for 2 weeks then reduce to 200 mg daily thereafter. Continue telemetry. (2) Dilated cardiomyopathy: Code(s): I42.0 - Dilated cardiomyopathy Status: Acute Assessment and Plan: Severe LV systolic dysfunction EF 15-20%. Precise etiology unclear possibly tachycardia induced cardiomyopathy given presentation. Amiodarone to maintain sinus rhythm to allow for further improvement in LV function and healing. As above. Clinically, she appears fairly euvolemic without diuretic therapy at this time. (3) Acute kidney injury: Code(s): N17.9 - Acute kidney failure, unspecified Status: Acute Assessment and Plan: Likely secondary to reduced renal perfusion from her severe cardiomyopathy stable. Anticoagulation renally dosed. (4) Hypertension associated with diabetes: Code(s): E11.59 - Type 2 diabetes mellitus with other circulatory complications; I15.2 - Hypertension secondary to endocrine disorders Status: Acute Assessment and Plan: Continue Entresto, Toprol-XL as BP permits. BP little soft this morning but stable. Tolerating medications thus far. (5) Hyperlipidemia associated with type 2 diabetes mellitus: Code(s): E11.69 - Type 2 diabetes mellitus with other specified complication; E78.5 - Hyperlipidemia, unspecified Status: Acute Assessment and Plan: Statin therapy advised. Check lipid panel. (6) Hypokalemia: Code(s): E87.6 - Hypokalemia Status: Acute Assessment and Plan: Continue potassium supplementation as warranted. (7) Elevated troponin: Code(s): R77.8 - Other specified abnormalities of plasma proteins Status: Acute Assessment and Plan: Most likely type 2 infarction Not related to ACS in setting of severe LV dysfunction with AFib with RVR, HIRAM. Subjective Date/time seen: Date of service: 12/23/21 10:36 Patient feeling much better this morning much more alert. Denies shortness of breath, chest pain. No new issues overnight. Did well with ANAYELI cardioversion yesterday afternoon maintaining sinus rhythm. Transient brief AFib noted post cardioversion amiodarone initiated yesterday late afternoon. Toprol XL reduced to 50 mg daily. BP stable but somewhat marginal. Patient has no other complaints at this time. Review of Systems Review of Systems:
[2021-12-23 11:06] LABS: Cholesterol 121 mg/dL (0-200); HDL Direct 22 mg/dL; Triglycerides 88 mg/dL (<150)
[2021-12-23 11:17] LABS: LDL Cholesterol Direct 89 mg/dL
--- NOTE | 2021-12-23 12:14 | PM.IMPN ---
Progress Note: A&P Assessment and Plan (1) Atrial fibrillation with RVR: Code(s): I48.91 - Unspecified atrial fibrillation Status: Acute Assessment and Plan: Patient brought in to the ED by EMS for buttock pain and found to have AFib. No hx of AFib. She is asymptomatic so unclear of duration of AFib. [id number] 7. Initially she was treated with diltiazem bolus and drip at 15mg/hr. She was admitted to the IMU. She was transitioned to metoprolol tartrate 50 mg Q12Hrs that was increased to 100mg daily. Echo showing severe LAE. She underwent Cardioversion 12/22 and was successfully converted to NSR. BP dropped to 75/41. Metoprolol dose was decreased. Amio loading started. Appreciate Cardiology input. (2) CHF (congestive heart failure): Qualifiers: Heart failure chronicity: acute Heart failure type: unspecified Qualified Code(s): I50.9 - Heart failure, unspecified Code(s): I50.9 - Heart failure, unspecified Status: Acute Assessment and Plan: Patient with acute on chronic systolic and diastolic CHF. BNP 14K. CXR showing airspace opacities in right lung, consistent with pneumonia versus asymmetric pulmonary edema. Not requiring O2. She was treated with Lasix IV but that has stopped. Echo showing EF 15-20% with abnormal diastolic dysfunction, biatrial enlargement (left is severe) and moderate MR. Discussion for LifeVest undertaken by Cardiology. Continue Metoprolol, Entresto. Lasix held due to hyponatremia, worsening renal function and HoTN. Repeat CXR 12/22 reviewed showing mild improvement. Apnea link unable to be performed since she was confused and pulling off the leads. Continue to follow. (3) Hyponatremia: Code(s): E87.1 - Hypo-osmolality and hyponatremia Status: Acute Assessment and Plan: Sodium at admission 136. Sodium 130 on 12/19 so diuretics discontinued. Fractional excretion of urea 37.2% (borderline for volume depletion). Na better at 125 today. Continue to hold furosemide. Continue NaCl tabs. Urine Na 20 with FENa 0.63% to suggest prerenal. May be related to poor renal perfusion from the low EF and tachycardia. Follow. Hold Celexa. (4) Lung infiltrate: Code(s): R91.8 - Other nonspecific abnormal finding of lung field Status: Acute Assessment and Plan: Suspect CXR findings due to congestive heart failure. COVID negative. Cannot exclude PNA but no cough. WBC 13K on admission but normal now. She was started on Zosyn and Vanco. Blood Cultures negative. Repeat CXR 12/22 showing some benefit. Continue abx to complete a 7 day treatment. (5) Elevated troponin: Code(s): R77.8 - Other specified abnormalities of plasma proteins Status: Acute Assessment and Plan: Trop peaked at 0.040 felt related to above and possibly due to the HIRAM. No ACS. (6) Acute kidney injury: Code(s): N17.9 - Acute kidney failure, unspecified Status: Acute Assessment and Plan: Patient with normal baseline renal function. Cr 2.1 on admission. Renal ultrasound showing no acute process. No contrast exposure. Started on Lasix IV with improvement in the Cr. Lasix was stopped. Cr was down to 1.4 but back up to 1.8 today felt related to poor renal perfusion with low EF and tachycardia. Related to abx? Consider also ATN from the HoTN. Follow. Sto abx tomorrow. (7) Diabetes mellitus with hyperglycemia: Code(s): E11.65 - Type 2 diabetes mellitus with hyperglycemia Status: Acute Assessment and Plan: A1c 7.3 in October. The patient's blood glucose was reviewed on 12/23 Glucose was well controlled but now higher last night and today. Probably related to her eating better and being off her insulin. Continue AccuCheks covering with sliding scale. Hypoglycemia protocol available as needed. Lantus was on hold due to procedures but Lantus resumed. Metformin on hold due to HIRAM. Continue to advance lantus to control glucose. (8
[2021-12-23 12:47] LABS: Glucose Point of Care 262 mg/dl (65-105)
[2021-12-23 15:46] LABS: Glucose Point of Care 235 mg/dl (65-105)
[2021-12-23 16:24] LABS: Sodium 125 mmol/L (137-145)
[2021-12-23] MEDS: RIVAROXABAN 15 MG TABLET PO (17:30)
--- NOTE | 2021-12-23 18:40 | PC.NURSE ---
This patient, Shanelle Sterling, was received from [facility] on 12/23/21 at 1846. Patient/family oriented to unit policies and routines
--- NOTE | 2021-12-23 18:57 | PC.NURSE ---
This patient, Shanelle Sterling, was transferred to [240 ] on 12/23/21 at 1830. Personal belongings sent with patient. Report given to [ ISABELLA Brown @ 1810]. Appropriate documentation sent with patient.
[2021-12-23 20:42] LABS: Glucose Point of Care 120 mg/dl (65-105)
[2021-12-24] VITALS (18 sets, daily range): BP systolic 96–109; BP diastolic 48–72; PULSE 63–100; RESP 16–20; TEMP 36.3–36.4; O2SAT 97–100
[2021-12-24 05:40] LABS: Hematocrit 40.5 % (37.0-47.0); Hemoglobin 13.4 g/dL (12.0-15.0); Mean Corpuscular HGB Conc 33.1 g/dl (32-36); Mean Corpuscular Hemoglobin 30.7 pg (26-34); Mean Corpuscular Volume 92.7 fl (80-100); Mean Platelet Volume 11.2 fl (7.4-10.4); Platelet Count Result 209 k/mm3 (150-375); Red Blood Count 4.37 M/mm3 (4.2-5.4); Red Cell Distribution Width 18.8 % (11.5-14.5); White Blood Count 8.3 K/mm3 (4.5-10.0)
[2021-12-24] MEDS: AMIODARONE HCL 200 MG TABLET 400 MG PO ×3 (05:56→21:09)
[2021-12-24 05:59] LABS: Anion Gap 7 mmol/L (8-16); Blood Urea Nitrogen 47 mg/dL (7-17); Calcium 8.2 mg/dL (8.4-10.2); Carbon Dioxide 26 mmol/L (22-30); Chloride 92 mmol/L (98-107); Estimated CRCL calculation 37 ml/min; Estimated Glomerular Filt Rate 32; Glucose 76 mg/dL (65-110); Potassium 4.7 mmol/L (3.4-5.0); Sodium 125 mmol/L (137-145)
[2021-12-24 08:10] LABS: Glucose Point of Care 74 mg/dl (65-105)
[2021-12-24] MEDS: SODIUM CHLORIDE 500 MG TABLET PO ×2 (09:44→10:56)
[2021-12-24] MEDS: GABAPENTIN 300 MG CAPSULE PO ×2 (09:44→16:22)
[2021-12-24] MEDS: MAGNESIUM OXIDE 400 MG TABLET PO (09:44)
[2021-12-24] MEDS: CYANOCOBALAMIN 1,000 MCG TABLET 1000 MCG PO (09:44)
[2021-12-24] MEDS: TOLNAFTATE 1% POWDER 45 GM BTL 1 APPLIC TOPICAL ×3 (09:45→21:09)
[2021-12-24] MEDS: INSULIN GLARGINE (*BKC) 100 UNITS/ML 15 UNITS SUB-Q (09:47)
[2021-12-24] MEDS: SACUBITRIL/VALSARTAN 24-26 MG TABLET 1 TAB PO ×2 (10:56→21:14)
[2021-12-24] MEDS: METOPROLOL SUCCINATE EXT REL 50 MG TABCR PO (10:56)
[2021-12-24 11:51] LABS: Glucose Point of Care 102 mg/dl (65-105)
--- NOTE | 2021-12-24 15:16 | PC.NURSE ---
On 12/24/21, the student, [Gloria Lyons], provided care and completed [facility] documentation on this patient. I have reviewed the student's documentation and agree with the findings.
--- NOTE | 2021-12-24 15:24 | PM.PNCARD ---
Progress Note: A&P Assessment and Plan (1) Atrial fibrillation with RVR: Code(s): I48.91 - Unspecified atrial fibrillation Status: Acute Assessment and Plan: Maintaining SR s/p ANAYELI/CV 12/22/21 on Amiodarone and Toprol XL which was reduced to 50mg daily. Continue Xarelto 15mg qhs. Unknown chronicity CHADSVasc score of at least 6. Discussed at length the importance of compliance with all her medications with regards to heart failure, cardiomyopathy, reduction risk for recurrence of atrial fibrillation, embolic stroke risk associated with atrial fibrillation and the need to stay on anticoagulation without interruption. We also discussed the importance of ambulating with caution, physical therapy and following directions and recommendations reduce fall risk for bleeding complications which could be catastrophic due to head injury for example. Patient verbalized understanding and states that she would just stop all her medications on her own. I strongly emphasized the importance of remaining compliant as well given severe LV dysfunction possibly tachycardia induced CM with assoc risk for SCD VT/VF. Patient must demonstrate compliance to even be considered a candidate for LifeVest and eventually ICD for that matter if EF remains less than 35%. This was explained to the patient's daughter yesterday noted. She has Continue amiodarone 400 mg q.8 hours through tomorrow then reduce to 400 mg b.i.d. for 1 week then 400 mg daily for 2 weeks then reduce to 200 mg daily thereafter. Continue telemetry. Stop Celexa. Defer wheezing to primary service, appear euvolemic at present. (2) Dilated cardiomyopathy: Code(s): I42.0 - Dilated cardiomyopathy Status: Acute Assessment and Plan: Severe LV systolic dysfunction EF 15-20%. Precise etiology unclear possibly tachycardia induced cardiomyopathy given presentation. Amiodarone to maintain sinus rhythm to allow for further improvement in LV function and healing. As above. Clinically, she appears fairly euvolemic without diuretic therapy at this time. she may require low dose diuretic as outpatient. Monitor volume status. (3) Acute kidney injury: Code(s): N17.9 - Acute kidney failure, unspecified Status: Acute Assessment and Plan: Likely secondary to reduced renal perfusion from her severe cardiomyopathy stable. Anticoagulation renally dosed. (4) Hypertension associated with diabetes: Code(s): E11.59 - Type 2 diabetes mellitus with other circulatory complications; I15.2 - Hypertension secondary to endocrine disorders Status: Acute Assessment and Plan: Continue Entresto, Toprol-XL as BP permits. BP little soft this morning but stable. Tolerating medications thus far. (5) Hyperlipidemia associated with type 2 diabetes mellitus: Code(s): E11.69 - Type 2 diabetes mellitus with other specified complication; E78.5 - Hyperlipidemia, unspecified Status: Acute Assessment and Plan: Statin therapy advised. Check lipid panel. (6) Hypokalemia: Code(s): E87.6 - Hypokalemia Status: Acute Assessment and Plan: Continue potassium supplementation as warranted. (7) Elevated troponin: Code(s): R77.8 - Other specified abnormalities of plasma proteins Status: Acute Assessment and Plan: Most likely type 2 infarction Not related to ACS in setting of severe LV dysfunction with AFib with RVR, HIRAM. Subjective Date/time seen: Date of service: 12/24/21 15:24 Follow-up for cardiomyopathy, atrial fibrillation status post cardioversion Patient feels fairly well this morning. Notes some congestion in her chest and wheezing. No new issues overnight. He remains on room air. Maintaining sinus rhythm on telemetry. Patient denies nausea, vomiting. Review of Systems Review of Systems: All systems reviewed & are unremarkable except as noted in HPI and below Constitutional: Constitutional: Reports as
--- NOTE | 2021-12-24 15:38 | PM.IMPN ---
Progress Note: A&P Assessment and Plan (1) Atrial fibrillation with RVR: Code(s): I48.91 - Unspecified atrial fibrillation Status: Acute Assessment and Plan: Patient brought in to the ED by EMS for buttock pain and found to have AFib. No hx of AFib. She is asymptomatic so unclear of duration of AFib. [id number] 7. Initially she was treated with diltiazem bolus and drip at 15mg/hr. She was admitted to the IMU. She was transitioned to metoprolol tartrate 50 mg Q12Hrs that was increased to 100mg daily. Echo showing severe LAE. She underwent Cardioversion 12/22 and was successfully converted to NSR. BP dropped to 75/41. Metoprolol dose was decreased. Amio loading started. Maintaing NSR. Continue Xarelto. Appreciate Cardiology input. (2) CHF (congestive heart failure): Qualifiers: Heart failure chronicity: acute Heart failure type: unspecified Qualified Code(s): I50.9 - Heart failure, unspecified Code(s): I50.9 - Heart failure, unspecified Status: Acute Assessment and Plan: Patient with acute on chronic systolic and diastolic CHF. BNP 14K. CXR showing airspace opacities in right lung, consistent with pneumonia versus asymmetric pulmonary edema. Not requiring O2. She was treated with Lasix IV but that has stopped. Echo showing EF 15-20% with abnormal diastolic dysfunction, biatrial enlargement (left is severe) and moderate MR. Discussion for LifeVest undertaken by Cardiology. Continue Metoprolol, Entresto. Lasix held due to hyponatremia, worsening renal function and HoTN. Repeat CXR 12/22 reviewed showing mild improvement. Apnea link unable to be performed since she was confused and pulling off the leads. Continue to follow. (3) Hyponatremia: Code(s): E87.1 - Hypo-osmolality and hyponatremia Status: Acute Assessment and Plan: Sodium at admission 136. Sodium 130 on 12/19 so diuretics discontinued. Fractional excretion of urea 37.2% (borderline for volume depletion). Na dropped but now stable at 125 today. Continue to hold furosemide. Urine Na 20 with FENa 0.63% to suggest prerenal. May be related to poor renal perfusion from the low EF and tachycardia. Increase NaCl tabs. Continue to hold Celexa. Follow. (4) Lung infiltrate: Code(s): R91.8 - Other nonspecific abnormal finding of lung field Status: Acute Assessment and Plan: Suspect CXR findings due to congestive heart failure. COVID negative. Cannot exclude PNA but no cough. WBC 13K on admission but normal now. She was started on Zosyn and Vanco. Blood Cultures negative. Repeat CXR 12/22 showing some benefit. Stop abx since she has completed a 7 day treatment. (5) Elevated troponin: Code(s): R77.8 - Other specified abnormalities of plasma proteins Status: Acute Assessment and Plan: Trop peaked at 0.040 felt related to above and possibly due to the HIRAM. No ACS. (6) Acute kidney injury: Code(s): N17.9 - Acute kidney failure, unspecified Status: Acute Assessment and Plan: Patient with normal baseline renal function. Cr 2.1 on admission. Renal ultrasound showing no acute process. No contrast exposure. Started on Lasix IV with improvement in the Cr. Lasix was stopped. Cr was down to 1.4 but back up to 1.8 today felt related to poor renal perfusion with low EF, Entresto, tachycardia and/or low BP. Abx related? Cr better today at 1.6. Will stop abx since completed a week of treatment. (7) Diabetes mellitus with hyperglycemia: Code(s): E11.65 - Type 2 diabetes mellitus with hyperglycemia Status: Acute Assessment and Plan: A1c 7.3 in October. The patient's blood glucose was reviewed on 12/24 Glucose was higher but was off Lantus due to NPO status. Lantus resumed at lower dose but glucose 74 this morning. Continue AccuCheks covering with sliding scale. Hypoglycemia protocol available as needed. Will decrease lantus again. Contineu to adjust her medcia
[2021-12-24] MEDS: SODIUM CHLORIDE 1 GM TABLET PO (16:22)
[2021-12-24] MEDS: RIVAROXABAN 15 MG TABLET PO (16:22)
[2021-12-24 16:23] LABS: Glucose Point of Care 123 mg/dl (65-105)
[2021-12-24 18:33] LABS: Sodium 127 mmol/L (137-145)
[2021-12-24] MEDS: INSULIN GLARGINE (*BKC) 100 UNITS/ML 10 UNITS SUB-Q (21:08)
[2021-12-24 21:30] LABS: Glucose Point of Care 118 mg/dl (65-105)
[2021-12-25] VITALS: PULSE 69
[2021-12-25 04:00] VITALS: PULSE 77
[2021-12-25 06:03] LABS: Anion Gap 7 mmol/L (8-16); Blood Urea Nitrogen 39 mg/dL (7-17); Calcium 8.4 mg/dL (8.4-10.2); Carbon Dioxide 26 mmol/L (22-30); Chloride 99 mmol/L (98-107); Estimated CRCL calculation 42 ml/min; Estimated Glomerular Filt Rate 37; Glucose 72 mg/dL (65-110); Potassium 4.3 mmol/L (3.4-5.0); Sodium 132 mmol/L (137-145)
[2021-12-25 06:27] VITALS: BP 111/70; PULSE 59; RESP 20; TEMP 36.4; O2SAT 99
[2021-12-25 08:00] VITALS: PULSE 78
[2021-12-25 08:29] VITALS: PULSE 77
[2021-12-25] MEDS: GABAPENTIN 300 MG CAPSULE PO (08:29)
[2021-12-25] MEDS: MAGNESIUM OXIDE 400 MG TABLET PO (08:29)
[2021-12-25] MEDS: SACUBITRIL/VALSARTAN 24-26 MG TABLET 1 TAB PO (08:29)
[2021-12-25] MEDS: SODIUM CHLORIDE 1 GM TABLET PO (08:29)
[2021-12-25] MEDS: METOPROLOL SUCCINATE EXT REL 50 MG TABCR PO (08:29)
[2021-12-25 08:30] VITALS: PULSE 77
[2021-12-25] MEDS: CYANOCOBALAMIN 1,000 MCG TABLET 1000 MCG PO (08:30)
[2021-12-25] MEDS: AMIODARONE HCL 200 MG TABLET 400 MG PO (08:30)
[2021-12-25] MEDS: TOLNAFTATE 1% POWDER 45 GM BTL 1 APPLIC TOPICAL (08:31)
[2021-12-25 08:38] LABS: Glucose Point of Care 76 mg/dl (65-105)
--- NOTE | 2021-12-25 09:10 | PCOTNOTE ---
Attempted to see pt for occupational therapy tx this AM, however, pt refused. Pt states I'm sleeping and don't need this today...I am going somewhere else today. Pt was educated on the importance of therapy for increase independence however, pt still declined due to wanting to sleep. Will continue per poc duration/frequency tomorrow.
--- NOTE | 2021-12-25 10:47 | PM.DS ---
DS: Admitting Diagnosis Discharge Date 12/25/21 Admitting Diagnosis Altered Mental Status DS: Discharge Diagnosis Discharge Diagnosis (1) Atrial fibrillation with RVR: Code(s): I48.91 - Unspecified atrial fibrillation Status: Acute Assessment and Plan: Patient brought in to the ED by EMS for buttock pain and found to have AFib. No hx of AFib. She is asymptomatic so unclear of duration of AFib. [id number] 7. Initially she was treated with diltiazem bolus and drip at 15mg/hr. She was admitted to the IMU. She was transitioned to metoprolol tartrate. Echo showing severe LAE. She underwent Cardioversion 12/22 and was successfully converted to NSR. Amio loading started. She was started on Xarelto. She maintained normal sinus. Appreciate Cardiology input. (2) CHF (congestive heart failure): Qualifiers: Heart failure chronicity: acute Heart failure type: unspecified Qualified Code(s): I50.9 - Heart failure, unspecified Code(s): I50.9 - Heart failure, unspecified Status: Acute Assessment and Plan: Patient with acute on chronic systolic and diastolic CHF. BNP 14K. CXR showing airspace opacities in right lung, consistent with pneumonia versus asymmetric pulmonary edema. She did not require O2. She was treated with Lasix IV. Echo showing EF 15-20% with abnormal diastolic dysfunction, biatrial enlargement (left is severe) and moderate MR. Discussion for LifeVest was undertaken by Cardiology. She was treated with Metoprolol, Entresto. Lasix held due to hyponatremia, worsening renal function and HoTN. Repeat CXR 12/22 reviewed showing improvement. Apnea link unable to be performed since she was confused and pulling off the leads. (3) Hyponatremia: Code(s): E87.1 - Hypo-osmolality and hyponatremia Status: Acute Assessment and Plan: Sodium at admission 136. Sodium dropped to 130 so diuretics discontinued. Fractional excretion of urea 37.2% (borderline for volume depletion). Na continue to drop to 125. Urine Na 20 with FENa 0.63% to suggest prerenal. May be related to poor renal perfusion from the low EF and tachycardia. Treated with NaCl tabs. We held Celexa (also prolonged QT). Sodium level improved to 132. (4) Lung infiltrate: Code(s): R91.8 - Other nonspecific abnormal finding of lung field Status: Acute Assessment and Plan: Suspect CXR findings due to congestive heart failure. COVID negative. Cannot exclude PNA but no cough. WBC 13K on admission but normalized. She was started on Zosyn and Vanco. Blood Cultures negative. Repeat CXR 12/22 showing some benefit. Stopped abx after she completed a 7 day course. (5) Elevated troponin: Code(s): R77.8 - Other specified abnormalities of plasma proteins Status: Acute Assessment and Plan: Trop peaked at 0.040 felt related to above and possibly due to the HIRAM. No ACS. (6) Acute kidney injury: Code(s): N17.9 - Acute kidney failure, unspecified Status: Acute Assessment and Plan: Patient has normal baseline renal function. Cr 2.1 on admission. Renal ultrasound showing no acute process. No contrast exposure. Started on Lasix IV with improvement in the Cr. Lasix was stopped. Cr was up and down at times related to poor renal perfusion with low EF, Entresto, tachycardia and/or low BP. Cr better today at 1.4. (7) Diabetes mellitus with hyperglycemia: Code(s): E11.65 - Type 2 diabetes mellitus with hyperglycemia Status: Acute Assessment and Plan: A1c 7.3 in October. The patient's blood glucose was monitored closely with AccuCheks covering with sliding scale. Hypoglycemia protocol was available as needed. Lantus held de to NPO status and Glucose was higher. But back on her home regiment caused glucose to be too well controlled (but no ronald hypoglycemia). Lantus dose adjusted. (8) Dementia: Code(s): F03.90 - Unspecified dementia without
[2021-12-25 11:05] LABS: EDCOVIDSCREEN Positive (Negative)
[2021-12-25 12:06] LABS: Glucose Point of Care 97 mg/dl (65-105)
[2021-12-25 12:44] LABS: SARS-CoV-2 RNA PCR Positive
--- NOTE | 2021-12-25 13:15 | PCPTNOTE ---
Patient refused treatment this session due to being discharged. Pt stated she should be leaving soon.
== END 2021-12-25 13:10 | DRG 308 ==
LOC: ANHED 21:39 → ANHIMU 12-17 00:14 → ANH2MED 12-23 19:12
PROVIDERS: Internal Medicine; Internal Medicine Cardiovascular Disease; Admitting Provider Internal Medicine; Emergency Provider Family Medicine; PCP Internal Medicine; Visit Provider Internal Medicine
PROC: 5A2204Z Restoration of Cardiac Rhythm, Single (ICD-10-PCS; CPT 93312; principal; 2021-12-22 13:00)
PROC: 5A2204Z Restoration of Cardiac Rhythm, Single (ICD-10-PCS; 2021-12-22 13:00)
DX: I48.91 Unspecified atrial fibrillation (principal); I50.43 Acute on chronic combined systolic (congestive) and diastolic (congestive) heart failure; E87.1 Hypo-osmolality and hyponatremia; N17.9 Acute kidney failure, unspecified; Z68.41 Body mass index [BMI] 40.0-44.9, adult; Z23 Encounter for immunization; I11.0 Hypertensive heart disease with heart failure; R91.8 Other nonspecific abnormal finding of lung field; E11.65 Type 2 diabetes mellitus with hyperglycemia; F03.90 Unspecified dementia, unspecified severity, without behavioral disturbance, psychotic disturbance, mood disturbance, and anxiety; E53.8 Deficiency of other specified B group vitamins; E87.6 Hypokalemia; L89.92 Pressure ulcer of unspecified site, stage 2; E11.59 Type 2 diabetes mellitus with other circulatory complications; I15.2 Hypertension secondary to endocrine disorders; E86.0 Dehydration; E66.9 Obesity, unspecified; I42.0 Dilated cardiomyopathy; Z86.73 Personal history of transient ischemic attack (TIA), and cerebral infarction without residual deficits
CPT/HCPCS: 36415; 70551; 71045; 76775; 80048; 80053; 80061; 80069; 80202; 81001; 82570; 82948; 83605; 83735; 83880; 83921; 84100; 84132; 84295; 84300; 84484; 84540; 85025; 85027; 85610; 87040; 87426; 90471; 90653; 92960; 93005; 93306; 93312; 93320; 93325; 94640; 96361; 96365; 96376; 97110; 97161; 97165; 97530; 97535; 99285; A9270; C9803; G0008; J0282; J1650; J1815; J1940; J2543; J2704; J2930; J3370; J3420; J3475; J7030; J7040; J7120; U0003; U0005

== ENCOUNTER 2022-02-03 22:55 | Emergency (ER) | payer MEDICARE, SELFPAY ==
--- NOTE | ~2022-02-03 | CT_ITS ---
EXAMINATION: CT abdomen pelvis w con DATE: 02/04/2022 00:45 INDICATION: Left flank pain. TECHNIQUE: Computed tomography (CT) of the abdomen and pelvis was performed with 100 mL Omnipaque 350 intravenous contrast. Automated exposure control and iterative reconstruction technique were employe d. The dose-length product was 1464.65 mGy-cm. COMPARISON: None. FINDINGS: The visualized portions of the lung bases demonstrate mild atelectasis. A calcified right l jabari nodule is consistent with old granulomatous disease. No pleural effusion. There is left atrial en largement of the heart. No pericardial effusion. The liver is normal. There are gallstones in the gal lbladder, which is normal in size. Calcifications in the spleen are consistent with old granulomatous disease. There is a 2.0 cm cyst in the spleen. There is a peripheral laceration of the spleen with d epth of 2.4 cm. The pancreas and adrenal glands are normal. There is cortical thinning of the kidneys . There is diverticulosis of the colon without evidence of diverticulitis. The appendix is not visual ized. There are no pathologically enlarged lymph nodes. There is no free intraperitoneal fluid. There is a subcutaneous hematoma in left flank. There is a 4.9 x 3.8 x 1.8 cm rim-enhancing mass in the le ft hip adductor muscles, likely a subacute hematoma. There is a rim enhancing mass in the left gluteu s medius muscle measuring 2.6 x 1.3 cm, likely a subacute hematoma. There is severe lumbar spondylosi s. There are acute fractures of left sixth, seventh, and ninth-12th ribs. IMPRESSION: 1. Splenic laceration with depth of 2.4 cm. 2. Acute left rib fractures involving the left sixth, seventh, and ninth-12th ribs. 3. Subcutaneous hematoma in left flank. 4. Subacute hematomas in the left hip adductor muscles and left gluteus medius muscle. Reviewed, dictated and finalized at location A. D CARE AIDE IMPRESSION: 1. Splenic laceration with depth of 2.4 cm. 2. Acute left rib fractures involving the left sixth, seventh, and ninth-12th r ibs. 3. Subcutaneous hematoma in left flank. 4. Subacute hematomas in the left hip adductor muscles and left gluteus medius muscle.
--- NOTE | ~2022-02-03 | XR_ITS ---
EXAMINATION: [id number] DATE: 02/04/2022 00:05 INDICATION: Left lower rib pain. TECHNIQUE: A frontal view of the chest and 2 views on 3 radiographs of the left ribs were obtained. COMPARISON: Chest 2 views 07/02/2020, CT abdomen and pelvis 02/04/2022 FINDINGS: There is no pneumonia, pleural effusion, or pneumothorax. Cardiomegaly is noted. There are fractures of anterior left sixth, seventh, and ninth ribs. IMPRESSION: 1. Acute fractures of anterior left sixth, seventh, and ninth ribs. 2. Cardiomegaly. Reviewed, dictated and finalized at location A. MBLER CONVERTIBLE TOP
--- NOTE | ~2022-02-03 | XR_ITS ---
EXAMINATION: XR hip LT 2V w AP pelvis DATE: 02/04/2022 00:05 INDICATION: Left hip pain. Fall. TECHNIQUE: An anteroposterior view of the pelvis and 2 views of left hip were obtained. COMPARISON: None. FINDINGS: Bone alignment is normal. No fracture. There is moderate osteoarthritis of the hips. There is severe lumbar spondylosis. Osteitis pubis is noted. IMPRESSION: 1. Moderate osteoarthritis of the hips. Reviewed, dictated and finalized at location A. ITY CONTROL ASSESSOR
[2022-02-03 22:56] VITALS: BP 90/50; PULSE 64; RESP 20; TEMP 36.6; O2SAT 100
[2022-02-03 23:01] VITALS: O2SAT 99
[2022-02-03 23:04] VITALS: BP 90/50; PULSE 65; RESP 17; O2SAT 100
[2022-02-03 23:10] VITALS: RESP 26
[2022-02-03 23:12] VITALS: BP 131/74; PULSE 64; RESP 31; O2SAT 100
--- NOTE | 2022-02-03 23:14 | ECG_ITS ---
Measurements Intervals [place] Rate: 66 P: 89 VA: 189 QRS: -16 QRSD: 95 T: 9 QT: 420 QTc: 442 Interpretive Statements SINUS RHYTHM NONSPECIFIC ST ABNORMALITY BASELINE ARTIFACT BORDERLINE ECG COMPARED TO ECG 12/22/2021 15:34:19 NO SIGNIFICANT CHANGES OTHER THAN ATRIAL PREMATURE COMPLEX NOT APPRECIATED Electronically Signed On 02-04-2022 13:55:34 COLD ROLLING SUPERVISOR by Oli Moralez M.D.
[2022-02-03 23:38] LABS: Basophils Absolute Auto 0.1 K/mm3 (0.0-0.1); Basophils Percent Auto 0.9 % (0.2-1.2); Eosinophils Absolute Auto 0.2 K/mm3 (0-0.3); Eosinophils Percent Auto 3.1 % (0-4.4); Immature Granulocyte Absolute 0.06 K/mm3 (0.00-0.031); Immature Granulocyte Percent A 0.8 % (0-0.5); Lymphocytes Absolute Auto 1.26 K/mm3 (0.9-3.2); Lymphocytes Percent Auto 17.1 % (18.3-44.2); Mean Corpuscular HGB Conc 31.6 g/dl (32-36); Mean Corpuscular Hemoglobin 29.5 pg (26-34); Mean Corpuscular Volume 93.4 fl (80-100); Mean Platelet Volume 10.2 fl (7.4-10.4); Monocytes Absolute Auto 0.6 K/mm3 (0.1-0.6); Monocytes Percent Auto 8.5 % (2.6-8.5); Neutrophils Absolute Auto 5.1 K/mm3 (1.3-6.7); Neutrophils Percent Auto 69.6 % (45.5-73.1); Platelet Count Result 348 k/mm3 (150-375); Red Blood Count 4.07 M/mm3 (4.2-5.4); Red Cell Distribution Width 15.2 % (11.5-14.5); White Blood Count 7.4 K/mm3 (4.5-10.0)
[2022-02-03 23:48] LABS: INR 1.1
[2022-02-03 23:49] LABS: Partial Thromboplastin Time 26.9 SECONDS (22.3-36.8)
[2022-02-03 23:52] LABS: Alanine Aminotransferase 14 U/L (4-35); Albumin Level 3.8 g/dL (3.5-5.1); Alkaline Phosphatase 84 U/L (38-126); Anion Gap 9 mmol/L (8-16); Aspartate Amino Transferase 24 U/L (14-36); Bilirubin,Total 0.4 mg/dL (0.2-1.3); Blood Urea Nitrogen 32 mg/dL (7-17); Calcium 8.5 mg/dL (8.4-10.2); Carbon Dioxide 29 mmol/L (22-30); Chloride 94 mmol/L (98-107); Estimated CRCL calculation 36 ml/min; Estimated Glomerular Filt Rate 34; Glucose 238 mg/dL (65-110); Potassium 4.5 mmol/L (3.4-5.0); Sodium 132 mmol/L (137-145)
--- NOTE | 2022-02-04 00:15 | PC.NURSE ---
Patient continues to complain of pain. EDP Hoa made aware. No new orders given. Patient to CT at this time.
--- NOTE | 2022-02-04 00:56 | PC.NURSE ---
Patient has attempted to use bedpan several times with no success. Urine sample still pending.
--- NOTE | 2022-02-04 01:04 | ED.FALL ---
HPI - Fall General Chief Complaint: Fall Stated Complaint: glf left abd and left flank pain - landed on trash Time Seen by Provider: 02/03/22 23:04 Source: patient, EMS, RN notes reviewed and old records reviewed Mode of arrival: EMS Limitations: no limitations History of Present Illness HPI Narrative: This is a 71 year old female who presents for evaluation of left flank pain s/p fall. Patient states she slipped due to her socks and she fell onto her left side. She reports hitting her left flank on a trash can, but she denies hitting her head or LOC. She is complaining of left flank pain that radiates around to her upper abdomen. Her pain is worse with breathing. She denies nausea, vomiting, headache, neck pain or dizziness. Related Data Home Medications Medication Instructions Recorded Confirmed gabapentin 300 mg PO BID 12/17/21 12/17/21 Allergies Allergy/AdvReac Type Severity Reaction Status Date / Time Penicillins Allergy Mild rash Verified 09/14/21 11:24 Review of Systems Review of Systems: All systems reviewed & are unremarkable except as noted in HPI and below Constitutional: Constitutional: Denies chills, Denies fever(s) and Denies weakness Cardiovascular: Cardiovascular: Denies radiating jaw, neck or arm pain Respiratory: Respiratory: Denies cough and Denies dyspnea Gastrointestinal: Gastrointestinal: Reports abdominal pain, Denies diarrhea, Denies nausea and Denies vomiting PMFSH Past Medical History Medical History (Updated 02/04/22 @ 04:00 by Nasima Camara MD) Atrial fibrillation Dilated cardiomyopathy History of CVA (cerebrovascular accident) Hyperlipidemia Hypertension Type 2 diabetes mellitus Surgical History Surgical History History of section, classical Family History Family History Mother Hypertension Family history of malignant neoplasm, Onset Age: 87 Patient's mother is Father Family history of malignant neoplasm, Onset Age: 92 Patient's father is Other Diabetes mellitus Family history of allergic disorder Social History Social History Social History: The patient has 6 children and she is . She has a 15-year-old granddaughter living with her. Patient stated that she is a lifelong nonsmoker. She does not use any alcohol marijuana or illicit drugs. Patient desires to be a full code but does not have a durable power securities counselor for healthcare. 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 Smoking status: Never smoker Second hand tobacco smoke exposure: No Alcohol intake: former Drinks per week: 1 Substance use: never Substance use type: does not use Spiritual care concerns: No Exam Const: General: no acute distress and alert Orientation/consciousness: patient oriented x3 HENMT: Head: normocephalic and atraumatic Face and sinus: normal facial exam, sinuses nontender and face symmetric Eyes: Pupils: Equal, round and reactive pupils present EOM: EOMs intact bilaterally Neck: Neck: normal visual inspection Chest: Other: left lateral rib tenderness, no bruising Resp: Effort & Inspection: normal respiratory effort and no retractions Auscultation: clear to auscultation bilaterally Cardio: Rate: regular rate Rhythm: regular rhythm Heart sounds: no murmurs GI: GI Palp: Yes Soft to palpation, Yes Tenderness to palpation present (GI) (LUQ, left flank), Yes Guarding due to palpation present (GI) and No Rigid due to palpation Auscultation: normal bowel sounds Skin: General skin exam: normal color Rashes: no rashes Neuro: General: patient oriented x3, moves all extremities and CN's II-XI intact bilaterally Extrem: General: normal to inspection Psych: Mental Status: mental status grossly normal Affect: normal aff
[2022-02-04 01:15] VITALS: BP 124/71; PULSE 70; RESP 18; O2SAT 99
[2022-02-04] MEDS: MORPHINE SULFATE (*CRX) 4 MG/ML INJ IV PUSH (01:26)
[2022-02-04] MEDS: ONDANSETRON INJ 4 MG/2 ML VIAL IV PUSH (01:26)
[2022-02-04 03:06] VITALS: BP 118/61; PULSE 65; RESP 16; O2SAT 99
[2022-02-04 03:19] LABS: Add Urine Microscopic? NO; Appearance Urine Clear (Clear); Bilirubin Urine Negative (Negative); Blood Urine Negative (Negative); Color Urine Yellow (Yellow); Glucose Urine UA Negative (Negative); Ketones Urine Negative (Negative); Leukocyte Esterase Ur Negative LEU/UL (Negative); Nitrate Urine Negative (Negative); Protein Urine Negative (Negative); Specific Grav Ur 1.029 (1.001-1.035); Urobilinogen Urine Negative mg/dL (<2.0)
[2022-02-04] MEDS: MORPHINE SULFATE (*CRX) 2 MG/ML INJ IV PUSH (03:38)
[2022-02-04] MEDS: SODIUM CHLORIDE 0.9% IV 1,000 ML 30 ML IV CONT (04:30)
[2022-02-04 04:33] VITALS: BP 117/50; PULSE 66; RESP 16; O2SAT 98
== END 2022-02-04 04:44 | disposition short-term general hospital (02) ==
PROVIDERS: Emergency Provider General Practice; PCP Internal Medicine
DX: S22.42XA Multiple fractures of ribs, left side, initial encounter for closed fracture (principal); S36.039A Unspecified laceration of spleen, initial encounter; I48.91 Unspecified atrial fibrillation; E78.5 Hyperlipidemia, unspecified; I10 Essential (primary) hypertension; E11.9 Type 2 diabetes mellitus without complications; W01.198A Fall on same level from slipping, tripping and stumbling with subsequent striking against other object, initial encounter
CPT/HCPCS: 36415; 71101; 73502; 74177; 80053; 81003; 85025; 85610; 85730; 86850; 86900; 86901; 93005; 96365; 96375; 96376; 99285; J0131; J2270; J2405; J7030; Q9967